=== PATIENT | male | born 1940 | race Caucasian/White ===

== ENCOUNTER 2017-03-25 20:13 | Inpatient (IN) | payer MEDICARE ==
[2017-03-25] MEDS ORDERED: Magnesium Hydroxide (MOM) 30 mL UDC PO PRN (20:41)
[2017-03-25] MEDS ORDERED: Maalox 30 mL Cup PO PRN (20:41)
[2017-03-25 20:43] VITALS: BP 153/73
[2017-03-25] MEDS ORDERED: Albuterol/Ipratropium Neb 3 ML AERS HHN PRN (21:29)
--- NOTE | 2017-03-25 23:48 | History & Physical ---
ADMIT DATE: 03/25/2017 HISTORY OF PRESENT ILLNESS: The patient is a 77-year-old male with long history of dementia, depression, gastroesophageal reflux, degenerative joint disease, transferred from [facility] to [facility] for ____ treatment. Apparently, the patient has been very depressed, agitated, and confused. No chest pain, no shortness of breath, nausea, vomiting, fever or chills. PAST MEDICAL HISTORY: Gastroesophageal reflux, degenerative joint disease, obesity, depression, and dementia. PAST SURGICAL HISTORY: No recent surgery. ALLERGIES: None. MEDICATIONS: Follow admission reconciliation. SOCIAL HISTORY: No smoking, no alcohol, and no drug. FAMILY HISTORY: Noncontributory. REVIEW OF SYSTEMS: IMMUNO SYSTEM: No history of chronic renal disorder. CARDIOVASCULAR SYSTEM: No coronary artery disease. ENDOCRINE SYSTEM: No diabetes or thyroid problem. GASTROINTESTINAL SYSTEM: Has gastroesophageal reflux. NEUROLOGICAL SYSTEM: History of depression, psychosis, and dementia. MUSCULOSKELETAL SYSTEM: Has degenerative joint disease and barely walking. HEMATOLOGIC SYSTEM: No bleeding tendency. RESPIRATORY SYSTEM: No asthma. GENITOURINARY SYSTEM: No dysuria or hematuria. PHYSICAL EXAMINATION: GENERAL: She is awake, not coherent. VITAL SIGNS: Temperature is 98.3, heart rate 68, and blood pressure ____. HEENT: Normocephalic. Pupils are reactive to light and accommodation. Sclerae clear. NECK: Supple. Negative for lymphadenopathy, JVD, or bruit. CHEST: Bilaterally normal. No rales, rhonchi or wheezing. HEART: S1 and S2 normal. No murmur or gallop. ABDOMEN: Soft, bowel sounds positive. EXTREMITIES: No edema. ____ SKIN: Intact. GENITOURINARY AND RECTAL: Done by the primary physician. NEUROLOGIC: He is awake, alert, not fully oriented. No focal motor or sensory deficit. Cranial nerves 2-12 is intact. ASSESSMENT: 1. Hypertension. 2. Gastroesophageal reflux. 3. Degenerative joint disease. 4. Dementia. PLAN: The patient admitted to the hospital under Dr. Plummer's service. MEDICAL PROBLEMS TO BE ADDRESSED DURING HOSPITALIZATION: Dementia and depression. MEDICAL PROBLEMS TO BE ADDRESSED AT DISCHARGE: Hypertension, degenerative joint disease. The patient is medically stable for activity. Thank you, Dr. Plummer, for asking me to see your patient. JOB# [id number]
[2017-03-26 07:26] LABS: HEMATOCRIT 46.3 % (41.0-60); HEMOGLOBIN 15.5 gm/dL (12-16); MEAN CELL VOLUME 87.4 fl (80-99); MEAN CORPUSCULAR HEMOGLOBIN 29.2 pg (27.0-31.0); MEAN CORPUSCULAR HGB CONC 33.4 pg (28.0-36.0); MEAN PLATELET VOLUME 8.5 fl; NEUTROPHILE ABSOLUTE 13.9 Th/cmm (1.8-8.0); PLATELET COUNT 214 Th/cmm (150-400); RED CELL DISTRIBUTION WIDTH 13.5 % (11.5-20.0)
[2017-03-26 07:37] LABS: ALB/GLOB RATIO 1.5 (1.0-1.8); ALKALINE PHOSPHATASE 94 U/L (34-104); BILIRUBIN,TOTAL 0.5 mg/dL (0.3-1.0); BUN - UREA NITROGEN 18 mg/dL (7-25); BUN/CREATININE RATIO 25.7; CALCIUM SERUM 9.8 mg/dL (8.6-10.3); CARBON DIOXIDE 30.8 mEq/L (21.0-31.0); CHLORIDE 97 mEq/L (98-107); CREATININE - SERUM 0.7 mg/dL (0.7-1.3); GLUCOSE 92 mg/dL (70-105); POTASSIUM SERUM 3.8 mEq/L (3.5-5.1); SGOT 14 U/L (13-39); SGPT/ALT 11 U/L (7-52); SODIUM SERUM 131 mEq/L (136-145)
[2017-03-26 07:44] LABS: WHITE BLOOD COUNT 20.4 Th/cmm (4.8-10.8)
[2017-03-26 08:06] LABS: BAND NEUTROPHILE 2 % (0-10); EOSINOPHIL 3 % (0-5); NEUTROPHILS 67 % (40-80); TOTAL CELLS COUNTED 100
[2017-03-26] MEDS: Aspirin 81mg Chewable Tab PO SCH (10:00)
[2017-03-26] MEDS: Pantoprazole 40 mg EC Tab PO SCH (10:00)
[2017-03-26] MEDS ORDERED: Haloperidol Lactate 5 mg/mL 1mL Vial ONE (13:19)
[2017-03-26] MEDS ORDERED: Haloperidol Lactate 5 mg/mL 1mL Vial IM ONE (13:20)
--- NOTE | 2017-03-26 22:02 | Internal Medicine Prog Note ---
Internal Medicine Subjective - Subjective Service Date: 03/26/17 Patient seen and examined:: without staff (HE IS QUITE,NT AGITATED.HE IOS STILL CONFUSED.) Patient is:: awake, non-verbal, in bed, confused Per staff patient has:: no adverse event Internal Medicine Objective - Results Result Diagrams: 03/26/17 07:05 03/26/17 07:05 Recent Labs: Laboratory Last Values WBC 20.4 Th/cmm (4.8-10.8) H* 03/26/17 07:05 RBC 5.30 Mil/cmm (3.80-5.80) 03/26/17 07:05 Hgb 15.5 gm/dL (12-16) 03/26/17 07:05 Hct 46.3 % (41.0-60) 03/26/17 07:05 MCV 87.4 fl (80-99) 03/26/17 07:05 MCH 29.2 pg (27.0-31.0) 03/26/17 07:05 MCHC Differential 33.4 pg (28.0-36.0) 03/26/17 07:05 RDW 13.5 % (11.5-20.0) 03/26/17 07:05 Plt Count 214 Th/cmm (150-400) 03/26/17 07:05 MPV 8.5 fl 03/26/17 07:05 Band Neutrophils % 2 % (0-10) 03/26/17 07:05 Neutrophils (Manual) 67 % (40-80) 03/26/17 07:05 Lymphocytes 23 % (20-50) 03/26/17 07:05 Monocytes 5 % (2-10) 03/26/17 07:05 Eosinophils 3 % (0-5) 03/26/17 07:05 Sodium 131 mEq/L (136-145) L 03/26/17 07:05 Potassium 3.8 mEq/L (3.5-5.1) 03/26/17 07:05 Chloride 97 mEq/L (98-107) L 03/26/17 07:05 Carbon Dioxide 30.8 mEq/L (21.0-31.0) 03/26/17 07:05 Anion Gap 7.0 (7.0-16.0) 03/26/17 07:05 BUN 18 mg/dL (7-25) 03/26/17 07:05 Creatinine 0.7 mg/dL (0.7-1.3) 03/26/17 07:05 Est GFR ( Amer) TNP 03/26/17 07:05 Est GFR (Non-Af Amer) TNP 03/26/17 07:05 BUN/Creatinine Ratio 25.7 03/26/17 07:05 Glucose 92 mg/dL (70-105) 03/26/17 07:05 POC Glucose 170 MG/DL (70 - 105) H 03/25/17 21:03 Calcium 9.8 mg/dL (8.6-10.3) 03/26/17 07:05 Total Bilirubin 0.5 mg/dL (0.3-1.0) 03/26/17 07:05 AST 14 U/L (13-39) 03/26/17 07:05 ALT 11 U/L (7-52) 03/26/17 07:05 Alkaline Phosphatase 94 U/L (34-104) 03/26/17 07:05 Total Protein 7.0 gm/dL (6.0-8.3) 03/26/17 07:05 Albumin 4.2 gm/dL (4.2-5.5) 03/26/17 07:05 Globulin 2.8 gm/dL 03/26/17 07:05 Albumin/Globulin Ratio 1.5 (1.0-1.8) 03/26/17 07:05 - Physical Exam Vitals and I&O: Vital Signs Temp 97.8 F 03/26/17 21:43 Pulse 45 03/26/17 21:43 Resp 19 03/26/17 21:43 BP 102/63 03/26/17 21:43 Pulse Ox 97 03/26/17 21:43 Intake & Output 03/26/17 03/26/17 03/27/17 06:59 18:59 06:59 Intake Total 120 600 Balance 120 600 Weight (lbs) 92.986 kg Intake: Oral 120 600 Other: # Voids 3 2 Active Medications: Current Medications Acetaminophen (Tylenol) 650 mg PO Q6H PRN PRN Reason: Mild Pain/Headache/T above 101 Stop: 05/24/17 20:40 Al Hydrox/Mg Hydrox/Simethicone (Maalox) 30 ml PO Q6H PRN PRN Reason: Dyspepsia Stop: 05/24/17 20:40 Albuterol/Ipratropium (Duoneb Neb) 3 ml HHN Q4H PRN PRN Reason: Wheezing Stop: 05/24/17 21:28 Alprazolam (Xanax) 0.5 mg PO Q8HR [facility] PRN Reason: Protocol Stop: 05/25/17 04:59 Last Admin: 03/26/17 20:52 Dose: Not Given Aspirin (Aspirin Chewable) 81 mg PO DAILY [facility] Stop: 05/25/17 08:59 Last Admin: 03/26/17 10:00 Dose: 81 mg Benztropine Mesylate (Cogentin) 0.5 mg PO DAILY [facility] Stop: 05/25/17 08:59 Last Admin: 03/26/17 10:00 Dose: 0.5 mg Citalopram Hydrobromide (Celexa) 20 mg PO DAILY [facility] PRN Reason: Protocol Stop: 05/25/17 08:59 Last Admin: 03/26/17 10:00 Dose: 20 mg Docusate Sodium (Colace) 200 mg PO DAILY [facility] Stop: 05/25/17 08:59 Last Admin: 03/26/17 10:00 Dose: 200 mg Lorazepam (Ativan) 1 mg PO Q6H PRN; Protocol PRN Reason: Anxiety/Agitation Stop: 05/24/17 20:40 Last Admin: 03/26/17 00:07 Dose: 1 mg Magnesium Hydroxide (Milk Of Magnesia) 30 ml PO HS PRN PRN Reason: Constipation Stop: 05/24/17 20:40 Metoclopramide HCl (Reglan) 5 mg PO Q12HR [facility] Stop: 05/24/17 20:59 Last Admin: 03/26/17 20:45 Dose: Not Given Pantoprazole Sodium (Protonix) 40 mg PO QAM [facility] Stop: 05/25/17 08:59 Last Admin: 03/26/17 10:00 Dose: 40 mg Quetiapine Fumarate (Seroquel) 100 mg PO Q8HR [facility] PRN Reason: Protocol Stop: 05/24/17 20:59 Last Admin: 03/26/17 20:45 Dose: Not Given Zolpidem Tartrate (Ambien) 5 mg PO HS PRN PRN Reason: Insomnia Stop: 05/24/17 20:40 Last Admin: 03/25/17 21:54 Dose: 5 mg General: demented, obese HEENT: NC/AT, PERRLA, EOMI, anicteric sclerae, throat clear Neck: Supple, No JVD, No thyromegaly, +2 carotid pulse wo bruit, No LAD Lungs: CTAB Cardiovascular: RRR, Normal S1, Normal S2, without murmur Abdomen: soft, non-tender, non-distended Extremities: clear Neurological: unable to follow command Internal Medicine Assmt/Plan - Assessment Assessment: 1.HTN. 2.GERD. 3.DEMENTIA. 4.LEUKOCYTOSIS. 5.HYPONATREMIA. - Plan Plan: CONTINUE ON CURRENT MEDICATION AND DIET.CBC IN AM.
[2017-03-27 07:01] LABS: % EOSINOPHILS 7.4 % (0.0-5.0); % LYMPHOCYTES 39.1 % (20.0-50.0); % MONOCYTES 5.4 % (2.0-10.0); % NEUTROPHILS 48.1 % (40.0-80.0); HEMATOCRIT 44.4 % (41.0-60); HEMOGLOBIN 14.6 gm/dL (12-16); MEAN CELL VOLUME 86.8 fl (80-99); MEAN CORPUSCULAR HEMOGLOBIN 28.5 pg (27.0-31.0); MEAN CORPUSCULAR HGB CONC 32.9 pg (28.0-36.0); MEAN PLATELET VOLUME 8.3 fl; PLATELET COUNT 221 Th/cmm (150-400); RED BLOOD COUNT 5.11 Mil/cmm (3.80-5.80); RED CELL DISTRIBUTION WIDTH 14.2 % (11.5-20.0)
[2017-03-27 07:05] LABS: WHITE BLOOD COUNT 14.6 Th/cmm (4.8-10.8)
[2017-03-27] MEDS: Pantoprazole 40 mg EC Tab PO SCH (09:47)
[2017-03-27] MEDS: Aspirin 81mg Chewable Tab PO SCH (09:47)
--- NOTE | 2017-03-27 15:14 | Internal Medicine Prog Note ---
Internal Medicine Subjective - Subjective Service Date: 03/27/17 Patient seen and examined:: without staff Patient is:: awake, non-verbal, in bed, confused Per staff patient has:: no adverse event Internal Medicine Objective - Results Result Diagrams: 03/27/17 06:26 03/26/17 07:05 Recent Labs: Laboratory Last Values WBC 14.6 Th/cmm (4.8-10.8) H D 03/27/17 06:26 RBC 5.11 Mil/cmm (3.80-5.80) 03/27/17 06:26 Hgb 14.6 gm/dL (12-16) 03/27/17 06:26 Hct 44.4 % (41.0-60) 03/27/17 06:26 MCV 86.8 fl (80-99) 03/27/17 06:26 MCH 28.5 pg (27.0-31.0) 03/27/17 06:26 MCHC Differential 32.9 pg (28.0-36.0) 03/27/17 06:26 RDW 14.2 % (11.5-20.0) 03/27/17 06:26 Plt Count 221 Th/cmm (150-400) 03/27/17 06:26 MPV 8.3 fl 03/27/17 06:26 Neutrophils % 48.1 % (40.0-80.0) 03/27/17 06:26 Band Neutrophils % 2 % (0-10) 03/26/17 07:05 Lymphocytes % 39.1 % (20.0-50.0) 03/27/17 06:26 Monocytes % 5.4 % (2.0-10.0) 03/27/17 06:26 Eosinophils % 7.4 % (0.0-5.0) H 03/27/17 06:26 Basophils % 0.0 % (0.0-2.0) 03/27/17 06:26 Neutrophils (Manual) 67 % (40-80) 03/26/17 07:05 Lymphocytes 23 % (20-50) 03/26/17 07:05 Monocytes 5 % (2-10) 03/26/17 07:05 Eosinophils 3 % (0-5) 03/26/17 07:05 Sodium 131 mEq/L (136-145) L 03/26/17 07:05 Potassium 3.8 mEq/L (3.5-5.1) 03/26/17 07:05 Chloride 97 mEq/L (98-107) L 03/26/17 07:05 Carbon Dioxide 30.8 mEq/L (21.0-31.0) 03/26/17 07:05 Anion Gap 7.0 (7.0-16.0) 03/26/17 07:05 BUN 18 mg/dL (7-25) 03/26/17 07:05 Creatinine 0.7 mg/dL (0.7-1.3) 03/26/17 07:05 Est GFR ( Amer) TNP 03/26/17 07:05 Est GFR (Non-Af Amer) TNP 03/26/17 07:05 BUN/Creatinine Ratio 25.7 03/26/17 07:05 Glucose 92 mg/dL (70-105) 03/26/17 07:05 POC Glucose 170 MG/DL (70 - 105) H 03/25/17 21:03 Calcium 9.8 mg/dL (8.6-10.3) 03/26/17 07:05 Total Bilirubin 0.5 mg/dL (0.3-1.0) 03/26/17 07:05 AST 14 U/L (13-39) 03/26/17 07:05 ALT 11 U/L (7-52) 03/26/17 07:05 Alkaline Phosphatase 94 U/L (34-104) 03/26/17 07:05 Total Protein 7.0 gm/dL (6.0-8.3) 03/26/17 07:05 Albumin 4.2 gm/dL (4.2-5.5) 03/26/17 07:05 Globulin 2.8 gm/dL 03/26/17 07:05 Albumin/Globulin Ratio 1.5 (1.0-1.8) 03/26/17 07:05 - Physical Exam Vitals and I&O: Vital Signs Temp 97.4 F 03/27/17 15:05 Pulse 82 03/27/17 15:05 Resp 19 03/27/17 15:05 BP 117/59 03/27/17 15:05 Pulse Ox 97 03/27/17 15:05 Intake & Output 03/26/17 03/27/17 03/27/17 18:59 06:59 18:59 Intake Total 600 120 Balance 600 120 Intake: Oral 600 120 Other: # Voids 2 3 Active Medications: Current Medications Acetaminophen (Tylenol) 650 mg PO Q6H PRN PRN Reason: Mild Pain/Headache/T above 101 Stop: 05/24/17 20:40 Al Hydrox/Mg Hydrox/Simethicone (Maalox) 30 ml PO Q6H PRN PRN Reason: Dyspepsia Stop: 05/24/17 20:40 Albuterol/Ipratropium (Duoneb Neb) 3 ml HHN Q4H PRN PRN Reason: Wheezing Stop: 05/24/17 21:28 Alprazolam (Xanax) 0.5 mg PO Q8HR [facility] PRN Reason: Protocol Stop: 05/25/17 04:59 Last Admin: 03/27/17 13:34 Dose: 0.5 mg Aspirin (Aspirin Chewable) 81 mg PO DAILY [facility] Stop: 05/25/17 08:59 Last Admin: 03/27/17 09:47 Dose: Not Given Benztropine Mesylate (Cogentin) 0.5 mg PO DAILY [facility] Stop: 05/25/17 08:59 Last Admin: 03/27/17 09:47 Dose: Not Given Citalopram Hydrobromide (Celexa) 20 mg PO DAILY [facility] PRN Reason: Protocol Stop: 05/25/17 08:59 Last Admin: 03/27/17 09:47 Dose: Not Given Docusate Sodium (Colace) 200 mg PO DAILY [facility] Stop: 05/25/17 08:59 Last Admin: 03/27/17 09:47 Dose: Not Given Lorazepam (Ativan) 1 mg PO Q6H PRN; Protocol PRN Reason: Anxiety/Agitation Stop: 05/24/17 20:40 Last Admin: 03/26/17 00:07 Dose: 1 mg Magnesium Hydroxide (Milk Of Magnesia) 30 ml PO HS PRN PRN Reason: Constipation Stop: 05/24/17 20:40 Metoclopramide HCl (Reglan) 5 mg PO Q12HR [facility] Stop: 05/24/17 20:59 Last Admin: 03/27/17 09:47 Dose: Not Given Pantoprazole Sodium (Protonix) 40 mg PO QAM [facility] Stop: 05/25/17 08:59 Last Admin: 03/27/17 09:47 Dose: Not Given Quetiapine Fumarate (Seroquel) 100 mg PO Q8HR [facility] PRN Reason: Protocol Stop: 05/24/17 20:59 Last Admin: 03/27/17 13:34 Dose: 100 mg Zolpidem Tartrate (Ambien) 5 mg PO HS PRN PRN Reason: Insomnia Stop: 05/24/17 20:40 Last Admin: 03/25/17 21:54 Dose: 5 mg General: demented, obese HEENT: NC/AT, PERRLA, EOMI, anicteric sclerae, throat clear Neck: Supple, No JVD, No thyromegaly, +2 carotid pulse wo bruit, No LAD Lungs: CTAB Cardiovascular: RRR, Normal S1, Normal S2, without murmur Abdomen: soft, non-tender, non-distended Extremities: clear Neurological: unable to follow command Internal Medicine Assmt/Plan - Assessment Assessment: 1.HTN. 2.GERD. 3.DEMENTIA. 4.LEUKOCYTOSIS. 5.HYPONATREMIA. - Plan Plan: CONTINUE ON CURRENT MEDICATION AND DIET.
[2017-03-28] MEDS: Pantoprazole 40 mg EC Tab PO SCH (09:01)
[2017-03-28] MEDS: Aspirin 81mg Chewable Tab PO SCH (09:01)
--- NOTE | 2017-03-28 16:51 | General Progress Note ---
Subjective - Review of Systems Service Date: 03/28/17 Subjective: RESTING COMFORTABLY NO DISTRESS Objective - Results Result Diagrams: 03/27/17 06:26 03/26/17 07:05 Recent Labs: Laboratory Last Values WBC 14.6 Th/cmm (4.8-10.8) H D 03/27/17 06:26 RBC 5.11 Mil/cmm (3.80-5.80) 03/27/17 06:26 Hgb 14.6 gm/dL (12-16) 03/27/17 06:26 Hct 44.4 % (41.0-60) 03/27/17 06:26 MCV 86.8 fl (80-99) 03/27/17 06:26 MCH 28.5 pg (27.0-31.0) 03/27/17 06:26 MCHC Differential 32.9 pg (28.0-36.0) 03/27/17 06:26 RDW 14.2 % (11.5-20.0) 03/27/17 06:26 Plt Count 221 Th/cmm (150-400) 03/27/17 06:26 MPV 8.3 fl 03/27/17 06:26 Neutrophils % 48.1 % (40.0-80.0) 03/27/17 06:26 Band Neutrophils % 2 % (0-10) 03/26/17 07:05 Lymphocytes % 39.1 % (20.0-50.0) 03/27/17 06:26 Monocytes % 5.4 % (2.0-10.0) 03/27/17 06:26 Eosinophils % 7.4 % (0.0-5.0) H 03/27/17 06:26 Basophils % 0.0 % (0.0-2.0) 03/27/17 06:26 Neutrophils (Manual) 67 % (40-80) 03/26/17 07:05 Lymphocytes 23 % (20-50) 03/26/17 07:05 Monocytes 5 % (2-10) 03/26/17 07:05 Eosinophils 3 % (0-5) 03/26/17 07:05 Sodium 131 mEq/L (136-145) L 03/26/17 07:05 Potassium 3.8 mEq/L (3.5-5.1) 03/26/17 07:05 Chloride 97 mEq/L (98-107) L 03/26/17 07:05 Carbon Dioxide 30.8 mEq/L (21.0-31.0) 03/26/17 07:05 Anion Gap 7.0 (7.0-16.0) 03/26/17 07:05 BUN 18 mg/dL (7-25) 03/26/17 07:05 Creatinine 0.7 mg/dL (0.7-1.3) 03/26/17 07:05 Est GFR ( Amer) TNP 03/26/17 07:05 Est GFR (Non-Af Amer) TNP 03/26/17 07:05 BUN/Creatinine Ratio 25.7 03/26/17 07:05 Glucose 92 mg/dL (70-105) 03/26/17 07:05 POC Glucose 170 MG/DL (70 - 105) H 03/25/17 21:03 Calcium 9.8 mg/dL (8.6-10.3) 03/26/17 07:05 Total Bilirubin 0.5 mg/dL (0.3-1.0) 03/26/17 07:05 AST 14 U/L (13-39) 03/26/17 07:05 ALT 11 U/L (7-52) 03/26/17 07:05 Alkaline Phosphatase 94 U/L (34-104) 03/26/17 07:05 Total Protein 7.0 gm/dL (6.0-8.3) 03/26/17 07:05 Albumin 4.2 gm/dL (4.2-5.5) 03/26/17 07:05 Globulin 2.8 gm/dL 03/26/17 07:05 Albumin/Globulin Ratio 1.5 (1.0-1.8) 03/26/17 07:05 - Physical Exam Vitals and I&O: Vital Signs Temp 98.2 F 03/28/17 15:36 Pulse 90 03/28/17 15:36 Resp 19 03/28/17 15:36 BP 107/68 03/28/17 15:36 Pulse Ox 98 03/28/17 15:36 Intake & Output 03/27/17 03/28/17 03/28/17 18:59 06:59 18:59 Intake Total 700 360 Balance 700 360 Intake: Oral 700 360 Other: # Voids 2 3 # Bowel Movements 1 Active Medications: Current Medications Acetaminophen (Tylenol) 650 mg PO Q6H PRN PRN Reason: Mild Pain/Headache/T above 101 Stop: 05/24/17 20:40 Al Hydrox/Mg Hydrox/Simethicone (Maalox) 30 ml PO Q6H PRN PRN Reason: Dyspepsia Stop: 05/24/17 20:40 Albuterol/Ipratropium (Duoneb Neb) 3 ml HHN Q4H PRN PRN Reason: Wheezing Stop: 05/24/17 21:28 Alprazolam (Xanax) 0.5 mg PO Q8HR [facility] PRN Reason: Protocol Stop: 05/25/17 04:59 Last Admin: 03/28/17 13:02 Dose: 0.5 mg Aspirin (Aspirin Chewable) 81 mg PO DAILY [facility] Stop: 05/25/17 08:59 Last Admin: 03/28/17 09:01 Dose: 81 mg Benztropine Mesylate (Cogentin) 0.5 mg PO DAILY [facility] Stop: 05/25/17 08:59 Last Admin: 03/28/17 09:02 Dose: 0.5 mg Citalopram Hydrobromide (Celexa) 20 mg PO DAILY [facility] PRN Reason: Protocol Stop: 05/25/17 08:59 Last Admin: 03/28/17 09:02 Dose: 20 mg Docusate Sodium (Colace) 200 mg PO DAILY [facility] Stop: 05/25/17 08:59 Last Admin: 03/28/17 09:02 Dose: 200 mg Lorazepam (Ativan) 1 mg PO Q6H PRN; Protocol PRN Reason: Anxiety/Agitation Stop: 05/24/17 20:40 Last Admin: 03/26/17 00:07 Dose: 1 mg Magnesium Hydroxide (Milk Of Magnesia) 30 ml PO HS PRN PRN Reason: Constipation Stop: 05/24/17 20:40 Metoclopramide HCl (Reglan) 5 mg PO Q12HR [facility] Stop: 05/24/17 20:59 Last Admin: 03/28/17 09:02 Dose: 5 mg Mupirocin (Bactroban Oint) 1 appl NS BID [facility] Stop: 04/02/17 09:01 Pantoprazole Sodium (Protonix) 40 mg PO QAM [facility] Stop: 05/25/17 08:59 Last Admin: 03/28/17 09:01 Dose: 40 mg Quetiapine Fumarate (Seroquel) 100 mg PO Q8HR [facility] PRN Reason: Protocol Stop: 05/24/17 20:59 Last Admin: 03/28/17 13:02 Dose: 100 mg Zolpidem Tartrate (Ambien) 5 mg PO HS PRN PRN Reason: Insomnia Stop: 05/24/17 20:40 Last Admin: 03/25/17 21:54 Dose: 5 mg General: Alert HEENT: Atraumatic, PERRLA, EOMI Neck: Supple, JVD Cardiovascular: Regular rate, Normal S1, Normal S2 Lungs: Clear to auscultation Abdomen: Bowel sounds, Soft Extremities: Clubbing Psych/Mental Status: Mood NL Assessment/Plan - Assessment Assessment: 1.HTN. 2.GERD. 3.DEMENTIA. 4.LEUKOCYTOSIS. 5.HYPONATREMIA. - Plan Plan: CONT CURRENT TREATMENT
--- NOTE | 2017-03-28 21:11 | Psychosocial Evaluation ---
DATE OF SERVICE: AGE: 77. SEX: Male. PHYSICIAN: Dr. Plummer. CHIEF COMPLAINT: Hitting staff and residents. HISTORY OF PRESENT ILLNESS: The patient is a 77-year-old male, who was admitted to the hospital because the patient has been severely aggressive and severely agitated. The patient has been hitting staff and residents in the facility where he lives. The patient also has been calling 911 because "they are calling my name on TV." The patient also has been trying to wheel himself off from the ER to exit because he thought that his parents are out of the Emergency Room waiting for him. He also has been having difficulty following any instructions and has been more aggressive lately. PAST PSYCHIATRIC HISTORY: The patient has history of what seems to be psychosis and dementia. PAST MEDICAL HISTORY: The patient has history of hypertension. CHEMICAL DEPENDENCY HISTORY: The patient denies. SOCIAL HISTORY: The patient lives in a nursing facility. No known alcohol or drug use. ALLERGIES: No known allergies. MENTAL STATUS EXAMINATION: The patient appears his stated age. Disheveled. Rambling and disorganized thoughts. The patient is suspicious and delusional and is agitated. The patient did not answer questions regarding suicide or homicide. The patient is alert, but unable to assess his orientation with her memory or concentration or the rest of the mental status exam because of his paranoia and disorganized thoughts. ASSESSMENT: PRIMARY DIAGNOSIS: Unspecified psychosis. SECONDARY DIAGNOSIS: Dementia, moderate, with psychotic features. TREATMENT PLAN: We will monitor the patient's behavior and condition closely. We will start individual, as well as milieu psychotherapy. We will monitor psychotropic medications. ESTIMATED LENGTH OF STAY: 7-10 days. THE PATIENT'S STRENGTHS AND WEAKNESSES: Strengths: The patient seems to be in relatively fair health. Weaknesses are his poor impulse control and his psychosis. AFTER DISCHARGE PLAN: Outpatient treatment and followup will continue as an outpatient in the facility. The patient might need placement the facility will not accept him back. JOB# [id number]
--- NOTE | 2017-03-28 21:39 | Progress Notes ---
DATE: 03/28/2017 SUBJECTIVE: The patient is still withdrawn and is still agitated. The patient also continued to be aggressive and still has episodes of trying to hit staff. He also is still easily agitated and easily irritable with difficulty following directions. He also still seemed to be suspicious and is still paranoid. The patient also is still reporting auditory hallucinations and is still saying that the TV is calling his name and talking about him. Also, still confused and needs redirections. ASSESSMENT: The patient is still psychotic. TREATMENT PLAN: We will continue monitoring his behavior and his condition closely. The patient also continued to take Celexa and we will continue the dose, and also considering use of antipsychotic medications and/or mood stabilizer. JOB# [id number]
--- NOTE | 2017-03-28 21:48 | Progress Notes ---
DATE: 03/27/2017 SUBJECTIVE: Chart reviewed and the patient interviewed. Also discussed the patient's condition with the staff and reviewed records and labs. The patient continues to be extremely agitated and in irritable mood. The patient also is still aggressive and he has episodes of trying to hit others. The patient also is restless and he still needs redirections. The patient also is still reporting auditory hallucinations and he said that he still hears his name on TV. Also, personal hygiene is still poor and the patient is disheveled. ASSESSMENT: The patient still has poor impulse control and aggressive. TREATMENT PLAN: We will continue monitoring his behavior and his condition closely. Also continue adjusting psychotropic medications. Also, working with correctional case manager in regard to discharge plans and possible placement issue. JOB# [id number]
--- NOTE | 2017-03-29 07:54 | General Progress Note ---
Subjective - Review of Systems Service Date: 03/29/17 Subjective: RESTING COMFORTABLY NO DISTRESS Objective - Results Result Diagrams: 03/27/17 06:26 03/26/17 07:05 Recent Labs: Laboratory Last Values WBC 14.6 Th/cmm (4.8-10.8) H D 03/27/17 06:26 RBC 5.11 Mil/cmm (3.80-5.80) 03/27/17 06:26 Hgb 14.6 gm/dL (12-16) 03/27/17 06:26 Hct 44.4 % (41.0-60) 03/27/17 06:26 MCV 86.8 fl (80-99) 03/27/17 06:26 MCH 28.5 pg (27.0-31.0) 03/27/17 06:26 MCHC Differential 32.9 pg (28.0-36.0) 03/27/17 06:26 RDW 14.2 % (11.5-20.0) 03/27/17 06:26 Plt Count 221 Th/cmm (150-400) 03/27/17 06:26 MPV 8.3 fl 03/27/17 06:26 Neutrophils % 48.1 % (40.0-80.0) 03/27/17 06:26 Band Neutrophils % 2 % (0-10) 03/26/17 07:05 Lymphocytes % 39.1 % (20.0-50.0) 03/27/17 06:26 Monocytes % 5.4 % (2.0-10.0) 03/27/17 06:26 Eosinophils % 7.4 % (0.0-5.0) H 03/27/17 06:26 Basophils % 0.0 % (0.0-2.0) 03/27/17 06:26 Neutrophils (Manual) 67 % (40-80) 03/26/17 07:05 Lymphocytes 23 % (20-50) 03/26/17 07:05 Monocytes 5 % (2-10) 03/26/17 07:05 Eosinophils 3 % (0-5) 03/26/17 07:05 Sodium 131 mEq/L (136-145) L 03/26/17 07:05 Potassium 3.8 mEq/L (3.5-5.1) 03/26/17 07:05 Chloride 97 mEq/L (98-107) L 03/26/17 07:05 Carbon Dioxide 30.8 mEq/L (21.0-31.0) 03/26/17 07:05 Anion Gap 7.0 (7.0-16.0) 03/26/17 07:05 BUN 18 mg/dL (7-25) 03/26/17 07:05 Creatinine 0.7 mg/dL (0.7-1.3) 03/26/17 07:05 Est GFR ( Amer) TNP 03/26/17 07:05 Est GFR (Non-Af Amer) TNP 03/26/17 07:05 BUN/Creatinine Ratio 25.7 03/26/17 07:05 Glucose 92 mg/dL (70-105) 03/26/17 07:05 POC Glucose 170 MG/DL (70 - 105) H 03/25/17 21:03 Calcium 9.8 mg/dL (8.6-10.3) 03/26/17 07:05 Total Bilirubin 0.5 mg/dL (0.3-1.0) 03/26/17 07:05 AST 14 U/L (13-39) 03/26/17 07:05 ALT 11 U/L (7-52) 03/26/17 07:05 Alkaline Phosphatase 94 U/L (34-104) 03/26/17 07:05 Total Protein 7.0 gm/dL (6.0-8.3) 03/26/17 07:05 Albumin 4.2 gm/dL (4.2-5.5) 03/26/17 07:05 Globulin 2.8 gm/dL 03/26/17 07:05 Albumin/Globulin Ratio 1.5 (1.0-1.8) 03/26/17 07:05 - Physical Exam Vitals and I&O: Vital Signs Temp 97.8 F 03/29/17 06:42 Pulse 64 03/29/17 07:42 Resp 18 03/29/17 07:42 BP 96/57 03/29/17 06:42 Pulse Ox 94 03/29/17 07:42 Intake & Output 03/28/17 03/29/17 03/29/17 18:59 06:59 18:59 Intake Total 1000 480 Balance 1000 480 Intake: Oral 1000 480 Other: # Voids 4 1 # Bowel Movements 1 Active Medications: Current Medications Acetaminophen (Tylenol) 650 mg PO Q6H PRN PRN Reason: Mild Pain/Headache/T above 101 Stop: 05/24/17 20:40 Al Hydrox/Mg Hydrox/Simethicone (Maalox) 30 ml PO Q6H PRN PRN Reason: Dyspepsia Stop: 05/24/17 20:40 Albuterol/Ipratropium (Duoneb Neb) 3 ml HHN Q4H PRN PRN Reason: Wheezing Stop: 05/24/17 21:28 Alprazolam (Xanax) 0.5 mg PO Q8HR [facility] PRN Reason: Protocol Stop: 05/25/17 04:59 Last Admin: 03/29/17 05:42 Dose: 0.5 mg Aspirin (Aspirin Chewable) 81 mg PO DAILY [facility] Stop: 05/25/17 08:59 Last Admin: 03/28/17 09:01 Dose: 81 mg Benztropine Mesylate (Cogentin) 0.5 mg PO DAILY [facility] Stop: 05/25/17 08:59 Last Admin: 03/28/17 09:02 Dose: 0.5 mg Citalopram Hydrobromide (Celexa) 20 mg PO DAILY [facility] PRN Reason: Protocol Stop: 05/25/17 08:59 Last Admin: 03/28/17 09:02 Dose: 20 mg Docusate Sodium (Colace) 200 mg PO DAILY [facility] Stop: 05/25/17 08:59 Last Admin: 03/28/17 09:02 Dose: 200 mg Lorazepam (Ativan) 1 mg PO Q6H PRN; Protocol PRN Reason: Anxiety/Agitation Stop: 05/24/17 20:40 Last Admin: 03/26/17 00:07 Dose: 1 mg Magnesium Hydroxide (Milk Of Magnesia) 30 ml PO HS PRN PRN Reason: Constipation Stop: 05/24/17 20:40 Metoclopramide HCl (Reglan) 5 mg PO Q12HR [facility] Stop: 05/24/17 20:59 Last Admin: 03/28/17 20:30 Dose: 5 mg Mupirocin (Bactroban Oint) 1 appl NS BID [facility] Stop: 04/02/17 09:01 Last Admin: 03/28/17 17:08 Dose: 1 appl Pantoprazole Sodium (Protonix) 40 mg PO QAM [facility] Stop: 05/25/17 08:59 Last Admin: 03/28/17 09:01 Dose: 40 mg Quetiapine Fumarate (Seroquel) 100 mg PO Q8HR [facility] PRN Reason: Protocol Stop: 05/24/17 20:59 Last Admin: 03/29/17 05:42 Dose: 100 mg Zolpidem Tartrate (Ambien) 5 mg PO HS PRN PRN Reason: Insomnia Stop: 05/24/17 20:40 Last Admin: 03/25/17 21:54 Dose: 5 mg General: Alert HEENT: Atraumatic, PERRLA, EOMI Neck: Supple, JVD Cardiovascular: Regular rate, Normal S1, Normal S2 Lungs: Clear to auscultation Abdomen: Bowel sounds, Soft Extremities: Clubbing Psych/Mental Status: Mood NL Assessment/Plan - Assessment Assessment: 1.HTN. 2.GERD. 3.DEMENTIA. 4.LEUKOCYTOSIS. 5.HYPONATREMIA. - Plan Plan: CONT CURRENT TREATMENT
[2017-03-29] MEDS: Pantoprazole 40 mg EC Tab PO SCH (08:33)
[2017-03-29] MEDS: Aspirin 81mg Chewable Tab PO SCH (08:33)
--- NOTE | 2017-03-29 20:21 | Progress Notes ---
DATE: 03/29/2017 SUBJECTIVE: Chart reviewed and the patient interviewed. Also discussed the patient's condition with the staff and reviewed records and labs. The patient continued to be extremely agitated and in irritable mood. The patient also is still aggressive and still having episodes of hitting staff. The patient also is still having difficulty following directions. Also, tries to call 911 and has to be monitored closely. The patient during interview said that the TV is still calling his name. He also is still having difficulty with redirections. ASSESSMENT: The patient is still psychotic and agitated. TREATMENT PLAN: We will continue to monitor his behavior and his condition closely. Also, continue to work on his psychosis and poor impulse control. JOB# [id number]
[2017-03-30 07:49] LABS: % BASOPHILS 0.3 % (0.0-2.0); % EOSINOPHILS 9.1 % (0.0-5.0); % LYMPHOCYTES 45.2 % (20.0-50.0); % MONOCYTES 6.6 % (2.0-10.0); % NEUTROPHILS 38.8 % (40.0-80.0); HEMATOCRIT 46.2 % (41.0-60); HEMOGLOBIN 15.5 gm/dL (12-16); MEAN CELL VOLUME 86.8 fl (80-99); MEAN CORPUSCULAR HEMOGLOBIN 29.1 pg (27.0-31.0); MEAN CORPUSCULAR HGB CONC 33.5 pg (28.0-36.0); NEUTROPHILE ABSOLUTE 4.9 Th/cmm (1.8-8.0); PLATELET COUNT 215 Th/cmm (150-400); RED BLOOD COUNT 5.32 Mil/cmm (3.80-5.80)
[2017-03-30 07:57] LABS: WHITE BLOOD COUNT 12.6 Th/cmm (4.8-10.8)
[2017-03-30 08:25] LABS: ANION GAP 7.9 (7.0-16.0); BUN - UREA NITROGEN 17 mg/dL (7-25); BUN/CREATININE RATIO 28.3; CALCIUM SERUM 9.2 mg/dL (8.6-10.3); CARBON DIOXIDE 29.1 mEq/L (21.0-31.0); CHLORIDE 101 mEq/L (98-107); CREATININE - SERUM 0.6 mg/dL (0.7-1.3); GLUCOSE 85 mg/dL (70-105); SODIUM SERUM 134 mEq/L (136-145)
[2017-03-30] MEDS: Aspirin 81mg Chewable Tab PO SCH (09:00)
[2017-03-30] MEDS: Pantoprazole 40 mg EC Tab PO SCH (09:00)
[2017-03-30] MEDS ORDERED: Haloperidol Lactate 5 mg/mL 1mL Vial IM PRN (11:35)
[2017-03-30] MEDS ORDERED: Haloperidol Lactate 5 mg/mL 1mL Vial ONE (11:39)
--- NOTE | 2017-03-30 19:11 | Internal Medicine Prog Note ---
Internal Medicine Subjective - Subjective Service Date: 03/30/17 Patient seen and examined:: with staff Patient is:: awake, non-verbal, in bed, confused Per staff patient has:: no adverse event Internal Medicine Objective - Results Result Diagrams: 03/30/17 07:15 03/30/17 07:15 Recent Labs: Laboratory Last Values WBC 12.6 Th/cmm (4.8-10.8) H 03/30/17 07:15 RBC 5.32 Mil/cmm (3.80-5.80) 03/30/17 07:15 Hgb 15.5 gm/dL (12-16) 03/30/17 07:15 Hct 46.2 % (41.0-60) 03/30/17 07:15 MCV 86.8 fl (80-99) 03/30/17 07:15 MCH 29.1 pg (27.0-31.0) 03/30/17 07:15 MCHC Differential 33.5 pg (28.0-36.0) 03/30/17 07:15 RDW 14.0 % (11.5-20.0) 03/30/17 07:15 Plt Count 215 Th/cmm (150-400) 03/30/17 07:15 MPV 8.0 fl 03/30/17 07:15 Neutrophils % 38.8 % (40.0-80.0) L 03/30/17 07:15 Band Neutrophils % 2 % (0-10) 03/26/17 07:05 Lymphocytes % 45.2 % (20.0-50.0) 03/30/17 07:15 Monocytes % 6.6 % (2.0-10.0) 03/30/17 07:15 Eosinophils % 9.1 % (0.0-5.0) H 03/30/17 07:15 Basophils % 0.3 % (0.0-2.0) 03/30/17 07:15 Neutrophils (Manual) 67 % (40-80) 03/26/17 07:05 Lymphocytes 23 % (20-50) 03/26/17 07:05 Monocytes 5 % (2-10) 03/26/17 07:05 Eosinophils 3 % (0-5) 03/26/17 07:05 Sodium 134 mEq/L (136-145) L 03/30/17 07:15 Potassium 4.0 mEq/L (3.5-5.1) 03/30/17 07:15 Chloride 101 mEq/L (98-107) 03/30/17 07:15 Carbon Dioxide 29.1 mEq/L (21.0-31.0) 03/30/17 07:15 Anion Gap 7.9 (7.0-16.0) 03/30/17 07:15 BUN 17 mg/dL (7-25) 03/30/17 07:15 Creatinine 0.6 mg/dL (0.7-1.3) L 03/30/17 07:15 Est GFR ( Amer) TNP 03/30/17 07:15 Est GFR (Non-Af Amer) TNP 03/30/17 07:15 BUN/Creatinine Ratio 28.3 03/30/17 07:15 Glucose 85 mg/dL (70-105) 03/30/17 07:15 POC Glucose 170 MG/DL (70 - 105) H 03/25/17 21:03 Calcium 9.2 mg/dL (8.6-10.3) 03/30/17 07:15 Total Bilirubin 0.5 mg/dL (0.3-1.0) 03/26/17 07:05 AST 14 U/L (13-39) 03/26/17 07:05 ALT 11 U/L (7-52) 03/26/17 07:05 Alkaline Phosphatase 94 U/L (34-104) 03/26/17 07:05 Total Protein 7.0 gm/dL (6.0-8.3) 03/26/17 07:05 Albumin 4.2 gm/dL (4.2-5.5) 03/26/17 07:05 Globulin 2.8 gm/dL 03/26/17 07:05 Albumin/Globulin Ratio 1.5 (1.0-1.8) 03/26/17 07:05 - Physical Exam Vitals and I&O: Vital Signs Temp 97.5 F 03/30/17 15:39 Pulse 87 03/30/17 15:39 Resp 20 03/30/17 15:39 BP 106/67 03/30/17 15:39 Pulse Ox 96 03/30/17 15:39 Intake & Output 03/30/17 03/30/17 03/31/17 06:59 18:59 06:59 Intake Total 300 2400 Balance 300 2400 Intake: Oral 300 2400 Other: # Voids 1 4 # Bowel Movements 0 0 Active Medications: Current Medications Acetaminophen (Tylenol) 650 mg PO Q6H PRN PRN Reason: Mild Pain/Headache/T above 101 Stop: 05/24/17 20:40 Al Hydrox/Mg Hydrox/Simethicone (Maalox) 30 ml PO Q6H PRN PRN Reason: Dyspepsia Stop: 05/24/17 20:40 Albuterol/Ipratropium (Duoneb Neb) 3 ml HHN Q4H PRN PRN Reason: Wheezing Stop: 05/24/17 21:28 Alprazolam (Xanax) 0.5 mg PO Q8HR [facility] PRN Reason: Protocol Stop: 05/25/17 04:59 Last Admin: 03/30/17 13:45 Dose: 0.5 mg Aspirin (Aspirin Chewable) 81 mg PO DAILY [facility] Stop: 05/25/17 08:59 Last Admin: 03/30/17 09:00 Dose: 81 mg Benztropine Mesylate (Cogentin) 0.5 mg PO DAILY [facility] Stop: 05/25/17 08:59 Last Admin: 03/30/17 09:03 Dose: 0.5 mg Citalopram Hydrobromide (Celexa) 20 mg PO DAILY [facility] PRN Reason: Protocol Stop: 05/25/17 08:59 Last Admin: 03/30/17 09:00 Dose: 20 mg Docusate Sodium (Colace) 200 mg PO DAILY [facility] Stop: 05/25/17 08:59 Last Admin: 03/30/17 09:00 Dose: 200 mg Haloperidol Lactate (Haldol) 3 mg IM STAT PRN PRN Reason: Agitation Stop: 05/29/17 11:34 Last Admin: 03/30/17 11:47 Dose: 3 mg Lorazepam (Ativan) 1 mg PO Q6H PRN; Protocol PRN Reason: Anxiety/Agitation Stop: 05/24/17 20:40 Last Admin: 03/30/17 10:54 Dose: 1 mg Magnesium Hydroxide (Milk Of Magnesia) 30 ml PO HS PRN PRN Reason: Constipation Stop: 05/24/17 20:40 Metoclopramide HCl (Reglan) 5 mg PO Q12HR [facility] Stop: 05/24/17 20:59 Last Admin: 03/30/17 09:09 Dose: Not Given Mupirocin (Bactroban Oint) 1 appl NS BID [facility] Stop: 04/02/17 09:01 Last Admin: 03/30/17 17:05 Dose: 1 appl Pantoprazole Sodium (Protonix) 40 mg PO QAM [facility] Stop: 05/25/17 08:59 Last Admin: 03/30/17 09:00 Dose: 40 mg Quetiapine Fumarate (Seroquel) 100 mg PO Q8HR [facility] PRN Reason: Protocol Stop: 05/24/17 20:59 Last Admin: 03/30/17 13:45 Dose: 100 mg Zolpidem Tartrate (Ambien) 5 mg PO HS PRN PRN Reason: Insomnia Stop: 05/24/17 20:40 Last Admin: 03/25/17 21:54 Dose: 5 mg General: demented, obese HEENT: NC/AT, PERRLA, EOMI, anicteric sclerae, throat clear Neck: Supple, No JVD, No thyromegaly, +2 carotid pulse wo bruit, No LAD Lungs: CTAB Cardiovascular: RRR, Normal S1, Normal S2, without murmur Abdomen: soft, non-tender, non-distended Extremities: clear Neurological: unable to follow command Internal Medicine Assmt/Plan - Assessment Assessment: 1.HTN. 2.GERD. 3.DEMENTIA. - Plan Plan: CONTINUE ON CURRENT MEDICATION AND DIET. Nutritional Asmnt/Malnutr-PDOC - Dietary Evaluation Malnutrition Findings (Please click <Entered> for more info): Nutritional Asmnt/Malnutrition Start: 03/30/17 16: 13 Text: Status: Complete Freq: Document 03/30/17 16:14 GSUN (Rec: 03/30/17 16:21 [email or web address]) Nutritional Asmnt/Malnutrition Patient General Information Nutritional Screening Moderate Risk Screening Diagnosis Unspecified psychosis, dementia moderate with psychotic features Pertinent Medical Hx/Surgical Hx Dementia, depression, GERD, DJD, obesity Subjective Information 77 year old male. Pt seen in wheelchair in rec room, asleep and unable to be woken up. Spoke to ALLIED HEALTH TEACHER in rec room, ALLIED HEALTH TEACHER reported pt has good appetite, no difficulties eating, denied nutritional concerns at this time. Pt appeared overweight, no muscle fat wasting noted. Avg PO intake 100% of meals since adm, meeting nutritional needs. Current Diet Order/ Nutrition Support Mech soft chopped. Pertinent Medications Colace, Haldol, MOM, Reglan, Protonix, Seroquel Pertinent Labs Reviewed. Nutritional Hx/Data Height 1.78 m Height (Calculated Centimeters) 177.8 Current Weight (lbs) 92.986 kg Weight (Calculated Kilograms) 93.0 Weight (Calculated Grams) 85309.4 [place] Body Weight 166 Weight Status Overweight GI Symptoms Skin Integrity/Comment: Rajesh Ramsey. Skin dryness. Current %PO Good (75-100%) Estimated Nutritional Goals Calories/Kcals/Kg IBW 166lb/75.5kg Kcals Calculated 1888-2265kcal (25-30kcal/kg) Protein Calculated 76g (1g/kg) Fluid: ml 1888-2265ml (1ml/kcal) Nutritional Problem 1. Problem Problem No nutritional problem at this time. Intervention/Recommendation Comments 1. Continue with current diet order. Avg PO intake is adequate. Expected Outcomes/Goals Expected Outcomes/Goals 1. PO intake continue to meet at least 75% of estimated nutritional needs.
--- NOTE | 2017-03-30 22:30 | Progress Notes ---
DATE: 03/30/2017 SUBJECTIVE: Chart reviewed and the patient interviewed. Also discussed the patient's condition with the staff and reviewed records and labs. The patient is still extremely paranoid and is still easily agitated. The patient also is still demanding and he is still aggressive and is threatening staff and others. The patient also is still having difficulty with controlling his temper and his mood. The patient had to be given Haldol, Ativan, and Benadryl emergency dose in order to calm him down since he was intrusive and threatening nurses. Otherwise, the patient is compliant with taking his medications. ASSESSMENT: The patient is still psychotic and threatening and can be dangerous to others. TREATMENT PLAN: We will continue monitoring his behavior and his condition closely. Also, continue working on his agitation, and follow up closely. JOB# [id number]
[2017-03-31] MEDS: Pantoprazole 40 mg EC Tab PO SCH (09:00)
[2017-03-31] MEDS: Aspirin 81mg Chewable Tab PO SCH (09:00)
--- NOTE | 2017-03-31 19:49 | Internal Medicine Prog Note ---
Internal Medicine Subjective - Subjective Service Date: 03/31/17 Patient seen and examined:: with staff Patient is:: awake, non-verbal, in bed, confused Per staff patient has:: no adverse event Internal Medicine Objective - Results Result Diagrams: 03/30/17 07:15 03/30/17 07:15 Recent Labs: Laboratory Last Values WBC 12.6 Th/cmm (4.8-10.8) H 03/30/17 07:15 RBC 5.32 Mil/cmm (3.80-5.80) 03/30/17 07:15 Hgb 15.5 gm/dL (12-16) 03/30/17 07:15 Hct 46.2 % (41.0-60) 03/30/17 07:15 MCV 86.8 fl (80-99) 03/30/17 07:15 MCH 29.1 pg (27.0-31.0) 03/30/17 07:15 MCHC Differential 33.5 pg (28.0-36.0) 03/30/17 07:15 RDW 14.0 % (11.5-20.0) 03/30/17 07:15 Plt Count 215 Th/cmm (150-400) 03/30/17 07:15 MPV 8.0 fl 03/30/17 07:15 Neutrophils % 38.8 % (40.0-80.0) L 03/30/17 07:15 Band Neutrophils % 2 % (0-10) 03/26/17 07:05 Lymphocytes % 45.2 % (20.0-50.0) 03/30/17 07:15 Monocytes % 6.6 % (2.0-10.0) 03/30/17 07:15 Eosinophils % 9.1 % (0.0-5.0) H 03/30/17 07:15 Basophils % 0.3 % (0.0-2.0) 03/30/17 07:15 Neutrophils (Manual) 67 % (40-80) 03/26/17 07:05 Lymphocytes 23 % (20-50) 03/26/17 07:05 Monocytes 5 % (2-10) 03/26/17 07:05 Eosinophils 3 % (0-5) 03/26/17 07:05 Sodium 134 mEq/L (136-145) L 03/30/17 07:15 Potassium 4.0 mEq/L (3.5-5.1) 03/30/17 07:15 Chloride 101 mEq/L (98-107) 03/30/17 07:15 Carbon Dioxide 29.1 mEq/L (21.0-31.0) 03/30/17 07:15 Anion Gap 7.9 (7.0-16.0) 03/30/17 07:15 BUN 17 mg/dL (7-25) 03/30/17 07:15 Creatinine 0.6 mg/dL (0.7-1.3) L 03/30/17 07:15 Est GFR ( Amer) TNP 03/30/17 07:15 Est GFR (Non-Af Amer) TNP 03/30/17 07:15 BUN/Creatinine Ratio 28.3 03/30/17 07:15 Glucose 85 mg/dL (70-105) 03/30/17 07:15 POC Glucose 170 MG/DL (70 - 105) H 03/25/17 21:03 Calcium 9.2 mg/dL (8.6-10.3) 03/30/17 07:15 Total Bilirubin 0.5 mg/dL (0.3-1.0) 03/26/17 07:05 AST 14 U/L (13-39) 03/26/17 07:05 ALT 11 U/L (7-52) 03/26/17 07:05 Alkaline Phosphatase 94 U/L (34-104) 03/26/17 07:05 Total Protein 7.0 gm/dL (6.0-8.3) 03/26/17 07:05 Albumin 4.2 gm/dL (4.2-5.5) 03/26/17 07:05 Globulin 2.8 gm/dL 03/26/17 07:05 Albumin/Globulin Ratio 1.5 (1.0-1.8) 03/26/17 07:05 - Physical Exam Vitals and I&O: Vital Signs Temp 97.8 F 03/31/17 14:00 Pulse 68 03/31/17 14:00 Resp 20 03/31/17 14:00 BP 108/64 03/31/17 14:00 Pulse Ox 97 03/31/17 14:00 Intake & Output 03/31/17 03/31/17 04/01/17 06:59 18:59 06:59 Intake Total 240 800 Balance 240 800 Intake: Oral 240 800 Other: # Voids 3 3 # Bowel Movements 0 1 Active Medications: Current Medications Acetaminophen (Tylenol) 650 mg PO Q6H PRN PRN Reason: Mild Pain/Headache/T above 101 Stop: 05/24/17 20:40 Al Hydrox/Mg Hydrox/Simethicone (Maalox) 30 ml PO Q6H PRN PRN Reason: Dyspepsia Stop: 05/24/17 20:40 Albuterol/Ipratropium (Duoneb Neb) 3 ml HHN Q4H PRN PRN Reason: Wheezing Stop: 05/24/17 21:28 Alprazolam (Xanax) 0.5 mg PO Q8HR [facility] PRN Reason: Protocol Stop: 05/25/17 04:59 Last Admin: 03/31/17 13:18 Dose: 0.5 mg Aspirin (Aspirin Chewable) 81 mg PO DAILY [facility] Stop: 05/25/17 08:59 Last Admin: 03/31/17 09:00 Dose: 81 mg Benztropine Mesylate (Cogentin) 0.5 mg PO DAILY [facility] Stop: 05/25/17 08:59 Last Admin: 03/31/17 08:59 Dose: 0.5 mg Citalopram Hydrobromide (Celexa) 20 mg PO DAILY [facility] PRN Reason: Protocol Stop: 05/25/17 08:59 Last Admin: 03/31/17 08:59 Dose: 20 mg Docusate Sodium (Colace) 200 mg PO DAILY [facility] Stop: 05/25/17 08:59 Last Admin: 03/31/17 08:59 Dose: 200 mg Haloperidol Lactate (Haldol) 3 mg IM STAT PRN PRN Reason: Agitation Stop: 05/29/17 11:34 Last Admin: 03/30/17 11:47 Dose: 3 mg Lorazepam (Ativan) 1 mg PO Q6H PRN; Protocol PRN Reason: Anxiety/Agitation Stop: 05/24/17 20:40 Last Admin: 03/30/17 10:54 Dose: 1 mg Magnesium Hydroxide (Milk Of Magnesia) 30 ml PO HS PRN PRN Reason: Constipation Stop: 05/24/17 20:40 Metoclopramide HCl (Reglan) 5 mg PO Q12HR [facility] Stop: 05/24/17 20:59 Last Admin: 03/31/17 08:59 Dose: 5 mg Mupirocin (Bactroban Oint) 1 appl NS BID [facility] Stop: 04/02/17 09:01 Last Admin: 03/31/17 09:00 Dose: 1 appl Pantoprazole Sodium (Protonix) 40 mg PO QAM [facility] Stop: 05/25/17 08:59 Last Admin: 03/31/17 09:00 Dose: 40 mg Quetiapine Fumarate (Seroquel) 100 mg PO Q8HR [facility] PRN Reason: Protocol Stop: 05/24/17 20:59 Last Admin: 03/31/17 13:18 Dose: 100 mg Zolpidem Tartrate (Ambien) 5 mg PO HS PRN PRN Reason: Insomnia Stop: 05/24/17 20:40 Last Admin: 03/25/17 21:54 Dose: 5 mg General: demented, obese HEENT: NC/AT, PERRLA, EOMI, anicteric sclerae, throat clear Neck: Supple, No JVD, No thyromegaly, +2 carotid pulse wo bruit, No LAD Lungs: CTAB Cardiovascular: RRR, Normal S1, Normal S2, without murmur Abdomen: soft, non-tender, non-distended Extremities: clear Neurological: unable to follow command Internal Medicine Assmt/Plan - Assessment Assessment: 1.HTN. 2.GERD. 3.DEMENTIA. - Plan Plan: CONTINUE ON CURRENT MEDICATION AND DIET. Nutritional Asmnt/Malnutr-PDOC - Dietary Evaluation Malnutrition Findings (Please click <Entered> for more info): Nutritional Asmnt/Malnutrition Start: 03/30/17 16: 13 Text: Status: Complete Freq: Document 03/30/17 16:14 GSUN (Rec: 03/30/17 16:21 [email or web address] [email or web address]) Nutritional Asmnt/Malnutrition Patient General Information Nutritional Screening Moderate Risk Screening Diagnosis Unspecified psychosis, dementia moderate with psychotic features Pertinent Medical Hx/Surgical Hx Dementia, depression, GERD, DJD, obesity Subjective Information 77 year old male. Pt seen in wheelchair in rec room, asleep and unable to be woken up. Spoke to MEDICAL TECHNOLOGIST HEMATOLOGY in rec room, MEDICAL TECHNOLOGIST HEMATOLOGY reported pt has good appetite, no difficulties eating, denied nutritional concerns at this time. Pt appeared overweight, no muscle fat wasting noted. Avg PO intake 100% of meals since adm, meeting nutritional needs. Current Diet Order/ Nutrition Support Mech soft chopped. Pertinent Medications Colace, Haldol, MOM, Reglan, Protonix, Seroquel Pertinent Labs Reviewed. Nutritional Hx/Data Height 1.78 m Height (Calculated Centimeters) 177.8 Current Weight (lbs) 92.986 kg Weight (Calculated Kilograms) 93.0 Weight (Calculated Grams) 44707.4 [place] Body Weight 166 Weight Status Overweight GI Symptoms Skin Integrity/Comment: Rajesh Ramsey. Skin dryness. Current %PO Good (75-100%) Estimated Nutritional Goals Calories/Kcals/Kg IBW 166lb/75.5kg Kcals Calculated 1888-2265kcal (25-30kcal/kg) Protein Calculated 76g (1g/kg) Fluid: ml 1888-2265ml (1ml/kcal) Nutritional Problem 1. Problem Problem No nutritional problem at this time. Intervention/Recommendation Comments 1. Continue with current diet order. Avg PO intake is adequate. Expected Outcomes/Goals Expected Outcomes/Goals 1. PO intake continue to meet at least 75% of estimated nutritional needs.
--- NOTE | 2017-03-31 20:57 | Progress Notes ---
DATE: 03/31/2017 SUBJECTIVE: Chart reviewed and the patient interviewed. Also discussed the patient's condition with the staff and reviewed records and labs. The patient is still suspicious and is still paranoid. The patient also is complaining of insomnia. Also, still thinks that TV is talking about him. Also, is still withdrawn, isolative, and personal hygiene is poor. Otherwise, the patient is compliant with taking his medications and patient denies any side effects of medications. ASSESSMENT: The patient is still psychotic. TREATMENT PLAN: Continue to monitor his behavior and his condition closely. Also, continue working on his agitation and irritability and we will continue to follow up. JOB# [id number]
[2017-04-01] MEDS: Pantoprazole 40 mg EC Tab PO SCH (08:52)
[2017-04-01] MEDS: Aspirin 81mg Chewable Tab PO SCH (08:56)
--- NOTE | 2017-04-01 10:37 | Internal Medicine Prog Note ---
Internal Medicine Subjective - Subjective Service Date: 04/01/17 Patient seen and examined:: without staff Patient is:: awake, non-verbal, in bed, confused Per staff patient has:: no adverse event Internal Medicine Objective - Results Result Diagrams: 03/30/17 07:15 03/30/17 07:15 Recent Labs: Laboratory Last Values WBC 12.6 Th/cmm (4.8-10.8) H 03/30/17 07:15 RBC 5.32 Mil/cmm (3.80-5.80) 03/30/17 07:15 Hgb 15.5 gm/dL (12-16) 03/30/17 07:15 Hct 46.2 % (41.0-60) 03/30/17 07:15 MCV 86.8 fl (80-99) 03/30/17 07:15 MCH 29.1 pg (27.0-31.0) 03/30/17 07:15 MCHC Differential 33.5 pg (28.0-36.0) 03/30/17 07:15 RDW 14.0 % (11.5-20.0) 03/30/17 07:15 Plt Count 215 Th/cmm (150-400) 03/30/17 07:15 MPV 8.0 fl 03/30/17 07:15 Neutrophils % 38.8 % (40.0-80.0) L 03/30/17 07:15 Band Neutrophils % 2 % (0-10) 03/26/17 07:05 Lymphocytes % 45.2 % (20.0-50.0) 03/30/17 07:15 Monocytes % 6.6 % (2.0-10.0) 03/30/17 07:15 Eosinophils % 9.1 % (0.0-5.0) H 03/30/17 07:15 Basophils % 0.3 % (0.0-2.0) 03/30/17 07:15 Neutrophils (Manual) 67 % (40-80) 03/26/17 07:05 Lymphocytes 23 % (20-50) 03/26/17 07:05 Monocytes 5 % (2-10) 03/26/17 07:05 Eosinophils 3 % (0-5) 03/26/17 07:05 Sodium 134 mEq/L (136-145) L 03/30/17 07:15 Potassium 4.0 mEq/L (3.5-5.1) 03/30/17 07:15 Chloride 101 mEq/L (98-107) 03/30/17 07:15 Carbon Dioxide 29.1 mEq/L (21.0-31.0) 03/30/17 07:15 Anion Gap 7.9 (7.0-16.0) 03/30/17 07:15 BUN 17 mg/dL (7-25) 03/30/17 07:15 Creatinine 0.6 mg/dL (0.7-1.3) L 03/30/17 07:15 Est GFR ( Amer) TNP 03/30/17 07:15 Est GFR (Non-Af Amer) TNP 03/30/17 07:15 BUN/Creatinine Ratio 28.3 03/30/17 07:15 Glucose 85 mg/dL (70-105) 03/30/17 07:15 POC Glucose 170 MG/DL (70 - 105) H 03/25/17 21:03 Calcium 9.2 mg/dL (8.6-10.3) 03/30/17 07:15 Total Bilirubin 0.5 mg/dL (0.3-1.0) 03/26/17 07:05 AST 14 U/L (13-39) 03/26/17 07:05 ALT 11 U/L (7-52) 03/26/17 07:05 Alkaline Phosphatase 94 U/L (34-104) 03/26/17 07:05 Total Protein 7.0 gm/dL (6.0-8.3) 03/26/17 07:05 Albumin 4.2 gm/dL (4.2-5.5) 03/26/17 07:05 Globulin 2.8 gm/dL 03/26/17 07:05 Albumin/Globulin Ratio 1.5 (1.0-1.8) 03/26/17 07:05 - Physical Exam Vitals and I&O: Vital Signs Temp 98.3 F 04/01/17 06:31 Pulse 66 04/01/17 07:20 Resp 18 04/01/17 07:20 BP 105/69 04/01/17 06:31 Pulse Ox 95 04/01/17 07:20 Intake & Output 03/31/17 04/01/17 04/01/17 18:59 06:59 18:59 Intake Total 800 120 Balance 800 120 Intake: Oral 800 120 Other: # Voids 3 3 # Bowel Movements 1 Active Medications: Current Medications Acetaminophen (Tylenol) 650 mg PO Q6H PRN PRN Reason: Mild Pain/Headache/T above 101 Stop: 05/24/17 20:40 Al Hydrox/Mg Hydrox/Simethicone (Maalox) 30 ml PO Q6H PRN PRN Reason: Dyspepsia Stop: 05/24/17 20:40 Albuterol/Ipratropium (Duoneb Neb) 3 ml HHN Q4H PRN PRN Reason: Wheezing Stop: 05/24/17 21:28 Alprazolam (Xanax) 0.5 mg PO Q8HR BROOK PRN Reason: Protocol Stop: 05/25/17 04:59 Last Admin: 04/01/17 05:11 Dose: 0.5 mg Aspirin (Aspirin Chewable) 81 mg PO DAILY BROOK Stop: 05/25/17 08:59 Last Admin: 04/01/17 08:56 Dose: 81 mg Benztropine Mesylate (Cogentin) 0.5 mg PO DAILY BROOK Stop: 05/25/17 08:59 Last Admin: 04/01/17 08:52 Dose: 0.5 mg Citalopram Hydrobromide (Celexa) 20 mg PO DAILY BROOK PRN Reason: Protocol Stop: 05/25/17 08:59 Last Admin: 04/01/17 08:56 Dose: 20 mg Docusate Sodium (Colace) 200 mg PO DAILY BROOK Stop: 05/25/17 08:59 Last Admin: 04/01/17 08:55 Dose: 200 mg Haloperidol Lactate (Haldol) 3 mg IM STAT PRN PRN Reason: Agitation Stop: 05/29/17 11:34 Last Admin: 03/30/17 11:47 Dose: 3 mg Lorazepam (Ativan) 1 mg PO Q6H PRN; Protocol PRN Reason: Anxiety/Agitation Stop: 05/24/17 20:40 Last Admin: 04/01/17 09:37 Dose: 1 mg Magnesium Hydroxide (Milk Of Magnesia) 30 ml PO HS PRN PRN Reason: Constipation Stop: 05/24/17 20:40 Metoclopramide HCl (Reglan) 5 mg PO Q12HR BROOK Stop: 05/24/17 20:59 Last Admin: 04/01/17 08:52 Dose: 5 mg Mupirocin (Bactroban Oint) 1 appl NS BID BROOK Stop: 04/02/17 09:01 Last Admin: 04/01/17 09:02 Dose: 1 appl Pantoprazole Sodium (Protonix) 40 mg PO QAM BROOK Stop: 05/25/17 08:59 Last Admin: 04/01/17 08:52 Dose: 40 mg Quetiapine Fumarate (Seroquel) 100 mg PO DAILY BROOK PRN Reason: Protocol Stop: 05/31/17 08:59 Last Admin: 04/01/17 08:57 Dose: 100 mg Quetiapine Fumarate 200 mg/ (Quetiapine Fumarate 50 mg) 250 mg PO HS BROOK Stop: 05/31/17 20:59 Zolpidem Tartrate (Ambien) 5 mg PO HS PRN PRN Reason: Insomnia Stop: 05/24/17 20:40 Last Admin: 03/25/17 21:54 Dose: 5 mg General: demented, obese HEENT: NC/AT, PERRLA, EOMI, anicteric sclerae, throat clear Neck: Supple, No JVD, No thyromegaly, +2 carotid pulse wo bruit, No LAD Lungs: CTAB Cardiovascular: RRR, Normal S1, Normal S2, without murmur Abdomen: soft, non-tender, non-distended Extremities: clear Neurological: unable to follow command Internal Medicine Assmt/Plan - Assessment Assessment: 1.HTN. 2.GERD. 3.DEMENTIA. - Plan Plan: CONTINUE ON CURRENT MEDICATION AND DIET. Nutritional Asmnt/Malnutr-PDOC - Dietary Evaluation Malnutrition Findings (Please click <Entered> for more info): Nutritional Asmnt/Malnutrition Start: 03/30/17 16: 13 Text: Status: Complete Freq: Document 03/30/17 16:14 GSUN (Rec: 03/30/17 16:21 GSUN [email or web address]) Nutritional Asmnt/Malnutrition Patient General Information Nutritional Screening Moderate Risk Screening Diagnosis Unspecified psychosis, dementia moderate with psychotic features Pertinent Medical Hx/Surgical Hx Dementia, depression, GERD, DJD, obesity Subjective Information 77 year old male. Pt seen in wheelchair in rec room, asleep and unable to be woken up. Spoke to SEARCH ENGINE MARKETING SPECIALIST in rec room, SEARCH ENGINE MARKETING SPECIALIST reported pt has good appetite, no difficulties eating, denied nutritional concerns at this time. Pt appeared overweight, no muscle fat wasting noted. Avg PO intake 100% of meals since adm, meeting nutritional needs. [facility] Pertinent Medications Colace, Haldol, MOM, Reglan, Protonix, Seroquel Pertinent Labs Reviewed. Nutritional Hx/Data Height 1.78 m Height (Calculated Centimeters) 177.8 Current Weight (lbs) 92.986 kg Weight (Calculated Kilograms) 93.0 Weight (Calculated Grams) 30845.4 [place] Body Weight 166 Weight Status Overweight GI Symptoms Skin Integrity/Comment: Rajesh 17. Skin dryness. Current %PO Good (75-100%) Estimated Nutritional Goals Calories/Kcals/Kg IBW 166lb/75.5kg Kcals Calculated 1888-2265kcal (25-30kcal/kg) Protein Calculated 76g (1g/kg) Fluid: ml 1888-2265ml (1ml/kcal) Nutritional Problem 1. Problem Problem No nutritional problem at this time. Intervention/Recommendation Comments 1. Continue with current diet order. Avg PO intake is adequate. Expected Outcomes/Goals Expected Outcomes/Goals 1. PO intake continue to meet at least 75% of estimated nutritional needs.
--- NOTE | 2017-04-01 18:33 | Progress Notes ---
DATE: 04/01/2017 SUBJECTIVE: Chart reviewed and the patient interviewed. Also discussed the patient's condition with the staff and reviewed records and labs. The patient remains extremely agitated and is still in an irritable mood. The patient also is anxious and has been aggressive with the staff. The patient also has been suspicious and he has been paranoid. He is still talking about himself being talked about on the TV. The patient still needs lots of redirection. Otherwise, the patient is compliant with taking Celexa with no side effects of Celexa. The patient also is taking Seroquel every 8 hours. ASSESSMENT: The patient is still agitated and is still psychotic. TREATMENT PLAN: We will monitor his behavior and his condition closely. Also, we will change Seroquel to 100 mg in the morning and 250 mg at bedtime. Also, we will continue to work on his poor impulse control and his irritability. JOB# [id number]
--- NOTE | 2017-04-02 08:12 | Progress Notes ---
DATE: 04/02/2017 SUBJECTIVE: Chart reviewed and the patient interviewed. Also discussed the patient's condition with the staff and reviewed records and labs. The patient is confused and is still forgetful. The patient also is still angry and is still easily agitated. Also, refusing to take a shower. The patient also needs lots of redirections, but he has difficulty following directions. He also is suspicious and is still paranoid. Otherwise, the patient is compliant with taking his medications with no side effects of medications. ASSESSMENT: The patient is still psychotic, agitated, and depressed. TREATMENT PLAN: Continue monitoring his behavior and his condition closely. Also, we will increase Seroquel mg in the morning and 300 mg at bedtime and we will continue to follow up closely. [facility]# [id number]
[2017-04-02] MEDS: Aspirin 81mg Chewable Tab PO SCH (08:51)
[2017-04-02] MEDS: Pantoprazole 40 mg EC Tab PO SCH (08:51)
[2017-04-02] MEDS ORDERED: Haloperidol Lactate 5 mg/mL 1mL Vial IM ONE (13:58)
--- NOTE | 2017-04-02 20:14 | Internal Medicine Prog Note ---
Internal Medicine Subjective - Subjective Service Date: 04/02/17 Patient seen and examined:: without staff Patient is:: awake, non-verbal, in bed, confused Per staff patient has:: no adverse event Internal Medicine Objective - Results Result Diagrams: 03/30/17 07:15 03/30/17 07:15 Recent Labs: Laboratory Last Values WBC 12.6 Th/cmm (4.8-10.8) H 03/30/17 07:15 RBC 5.32 Mil/cmm (3.80-5.80) 03/30/17 07:15 Hgb 15.5 gm/dL (12-16) 03/30/17 07:15 Hct 46.2 % (41.0-60) 03/30/17 07:15 MCV 86.8 fl (80-99) 03/30/17 07:15 MCH 29.1 pg (27.0-31.0) 03/30/17 07:15 MCHC Differential 33.5 pg (28.0-36.0) 03/30/17 07:15 RDW 14.0 % (11.5-20.0) 03/30/17 07:15 Plt Count 215 Th/cmm (150-400) 03/30/17 07:15 MPV 8.0 fl 03/30/17 07:15 Neutrophils % 38.8 % (40.0-80.0) L 03/30/17 07:15 Band Neutrophils % 2 % (0-10) 03/26/17 07:05 Lymphocytes % 45.2 % (20.0-50.0) 03/30/17 07:15 Monocytes % 6.6 % (2.0-10.0) 03/30/17 07:15 Eosinophils % 9.1 % (0.0-5.0) H 03/30/17 07:15 Basophils % 0.3 % (0.0-2.0) 03/30/17 07:15 Neutrophils (Manual) 67 % (40-80) 03/26/17 07:05 Lymphocytes 23 % (20-50) 03/26/17 07:05 Monocytes 5 % (2-10) 03/26/17 07:05 Eosinophils 3 % (0-5) 03/26/17 07:05 Sodium 134 mEq/L (136-145) L 03/30/17 07:15 Potassium 4.0 mEq/L (3.5-5.1) 03/30/17 07:15 Chloride 101 mEq/L (98-107) 03/30/17 07:15 Carbon Dioxide 29.1 mEq/L (21.0-31.0) 03/30/17 07:15 Anion Gap 7.9 (7.0-16.0) 03/30/17 07:15 BUN 17 mg/dL (7-25) 03/30/17 07:15 Creatinine 0.6 mg/dL (0.7-1.3) L 03/30/17 07:15 Est GFR ( Amer) TNP 03/30/17 07:15 Est GFR (Non-Af Amer) TNP 03/30/17 07:15 BUN/Creatinine Ratio 28.3 03/30/17 07:15 Glucose 85 mg/dL (70-105) 03/30/17 07:15 POC Glucose 170 MG/DL (70 - 105) H 03/25/17 21:03 Calcium 9.2 mg/dL (8.6-10.3) 03/30/17 07:15 Total Bilirubin 0.5 mg/dL (0.3-1.0) 03/26/17 07:05 AST 14 U/L (13-39) 03/26/17 07:05 ALT 11 U/L (7-52) 03/26/17 07:05 Alkaline Phosphatase 94 U/L (34-104) 03/26/17 07:05 Total Protein 7.0 gm/dL (6.0-8.3) 03/26/17 07:05 Albumin 4.2 gm/dL (4.2-5.5) 03/26/17 07:05 Globulin 2.8 gm/dL 03/26/17 07:05 Albumin/Globulin Ratio 1.5 (1.0-1.8) 03/26/17 07:05 - Physical Exam Vitals and I&O: Vital Signs Temp 98.4 F 04/02/17 14:00 Pulse 73 04/02/17 19:50 Resp 20 04/02/17 19:50 BP 122/85 04/02/17 14:00 Pulse Ox 94 04/02/17 19:50 Intake & Output 04/02/17 04/02/17 04/03/17 06:59 18:59 06:59 Intake Total 120 1200 Balance 120 1200 Intake: Oral 120 1200 Other: # Voids 3 # Bowel Movements 1 Active Medications: Current Medications Acetaminophen (Tylenol) 650 mg PO Q6H PRN PRN Reason: Mild Pain/Headache/T above 101 Stop: 05/24/17 20:40 Al Hydrox/Mg Hydrox/Simethicone (Maalox) 30 ml PO Q6H PRN PRN Reason: Dyspepsia Stop: 05/24/17 20:40 Albuterol/Ipratropium (Duoneb Neb) 3 ml HHN Q4H PRN PRN Reason: Wheezing Stop: 05/24/17 21:28 Alprazolam (Xanax) 0.5 mg PO Q8HR BROOK PRN Reason: Protocol Stop: 05/25/17 04:59 Last Admin: 04/02/17 12:18 Dose: 0.5 mg Aspirin (Aspirin Chewable) 81 mg PO DAILY BROOK Stop: 05/25/17 08:59 Last Admin: 04/02/17 08:51 Dose: 81 mg Benztropine Mesylate (Cogentin) 0.5 mg PO DAILY BROOK Stop: 05/25/17 08:59 Last Admin: 04/02/17 08:50 Dose: 0.5 mg Citalopram Hydrobromide (Celexa) 20 mg PO DAILY BROOK PRN Reason: Protocol Stop: 05/25/17 08:59 Last Admin: 04/02/17 08:51 Dose: 20 mg Docusate Sodium (Colace) 200 mg PO DAILY BROOK Stop: 05/25/17 08:59 Last Admin: 04/02/17 08:51 Dose: 200 mg Haloperidol Lactate (Haldol) 3 mg IM STAT PRN PRN Reason: Agitation Stop: 05/29/17 11:34 Last Admin: 03/30/17 11:47 Dose: 3 mg Magnesium Hydroxide (Milk Of Magnesia) 30 ml PO HS PRN PRN Reason: Constipation Stop: 05/24/17 20:40 Metoclopramide HCl (Reglan) 5 mg PO Q12HR BROOK Stop: 05/24/17 20:59 Last Admin: 04/02/17 08:51 Dose: 5 mg Pantoprazole Sodium (Protonix) 40 mg PO QAM BROOK Stop: 05/25/17 08:59 Last Admin: 04/02/17 08:51 Dose: 40 mg Quetiapine Fumarate (Seroquel) 100 mg PO DAILY BROOK PRN Reason: Protocol Stop: 05/31/17 08:59 Last Admin: 04/02/17 08:50 Dose: 100 mg Quetiapine Fumarate (Seroquel) 300 mg PO HS BROOK Stop: 05/31/17 20:59 General: demented, obese HEENT: NC/AT, PERRLA, EOMI, anicteric sclerae, throat clear Neck: Supple, No JVD, No thyromegaly, +2 carotid pulse wo bruit, No LAD Lungs: CTAB Cardiovascular: RRR, Normal S1, Normal S2, without murmur Abdomen: soft, non-tender, non-distended Extremities: clear Neurological: unable to follow command Internal Medicine Assmt/Plan - Assessment Assessment: 1.HTN. 2.GERD. 3.DEMENTIA. - Plan Plan: CONTINUE ON CURRENT MEDICATION AND DIET. Nutritional Asmnt/Malnutr-PDOC - Dietary Evaluation Malnutrition Findings (Please click <Entered> for more info): Nutritional Asmnt/Malnutrition Start: 03/30/17 16: 13 Text: Status: Complete Freq: Document 03/30/17 16:14 GSUN (Rec: 03/30/17 16:21 [email or web address] Nutritional Asmnt/Malnutrition Patient General Information Nutritional Screening Moderate Risk Screening Diagnosis Unspecified psychosis, dementia moderate with psychotic features Pertinent Medical Hx/Surgical Hx Dementia, depression, GERD, DJD, obesity Subjective Information 77 year old male. Pt seen in wheelchair in rec room, asleep and unable to be woken up. Spoke to PUBLIC HEALTH REPRESENTATIVE in rec room, PUBLIC HEALTH REPRESENTATIVE reported pt has good appetite, no difficulties eating, denied nutritional concerns at this time. Pt appeared overweight, no muscle fat wasting noted. Avg PO intake 100% of meals since adm, meeting nutritional needs. Current Diet Order/ Nutrition Support [facility] soft chopped. Pertinent Medications Colace, Haldol, MOM, Reglan, Protonix, Seroquel Pertinent Labs Reviewed. Nutritional Hx/Data Height 1.78 m Height (Calculated Centimeters) 177.8 Current Weight (lbs) 92.986 kg Weight (Calculated Kilograms) 93.0 Weight (Calculated Grams) 89338.4 [place] Body Weight 166 Weight Status Overweight GI Symptoms Skin Integrity/Comment: Rajesh 17. Skin dryness. Current %PO Good (75-100%) Estimated Nutritional Goals Calories/Kcals/Kg IBW 166lb/75.5kg Kcals Calculated 1888-2265kcal (25-30kcal/kg) Protein Calculated 76g (1g/kg) Fluid: ml 1888-2265ml (1ml/kcal) Nutritional Problem 1. Problem Problem No nutritional problem at this time. Intervention/Recommendation Comments 1. Continue with current diet order. Avg PO intake is adequate. Expected Outcomes/Goals Expected Outcomes/Goals 1. PO intake continue to meet at least 75% of estimated nutritional needs.
[2017-04-03] MEDS: Pantoprazole 40 mg EC Tab PO SCH (08:24)
[2017-04-03] MEDS: Aspirin 81mg Chewable Tab PO SCH (08:24)
--- NOTE | 2017-04-03 17:26 | Internal Medicine Prog Note ---
Internal Medicine Subjective - Subjective Service Date: 04/03/17 Patient seen and examined:: without staff Patient is:: awake, non-verbal, in bed, confused Per staff patient has:: no adverse event Internal Medicine Objective - Results Result Diagrams: 03/30/17 07:15 03/30/17 07:15 Recent Labs: Laboratory Last Values WBC 12.6 Th/cmm (4.8-10.8) H 03/30/17 07:15 RBC 5.32 Mil/cmm (3.80-5.80) 03/30/17 07:15 Hgb 15.5 gm/dL (12-16) 03/30/17 07:15 Hct 46.2 % (41.0-60) 03/30/17 07:15 MCV 86.8 fl (80-99) 03/30/17 07:15 MCH 29.1 pg (27.0-31.0) 03/30/17 07:15 MCHC Differential 33.5 pg (28.0-36.0) 03/30/17 07:15 RDW 14.0 % (11.5-20.0) 03/30/17 07:15 Plt Count 215 Th/cmm (150-400) 03/30/17 07:15 MPV 8.0 fl 03/30/17 07:15 Neutrophils % 38.8 % (40.0-80.0) L 03/30/17 07:15 Band Neutrophils % 2 % (0-10) 03/26/17 07:05 Lymphocytes % 45.2 % (20.0-50.0) 03/30/17 07:15 Monocytes % 6.6 % (2.0-10.0) 03/30/17 07:15 Eosinophils % 9.1 % (0.0-5.0) H 03/30/17 07:15 Basophils % 0.3 % (0.0-2.0) 03/30/17 07:15 Neutrophils (Manual) 67 % (40-80) 03/26/17 07:05 Lymphocytes 23 % (20-50) 03/26/17 07:05 Monocytes 5 % (2-10) 03/26/17 07:05 Eosinophils 3 % (0-5) 03/26/17 07:05 Sodium 134 mEq/L (136-145) L 03/30/17 07:15 Potassium 4.0 mEq/L (3.5-5.1) 03/30/17 07:15 Chloride 101 mEq/L (98-107) 03/30/17 07:15 Carbon Dioxide 29.1 mEq/L (21.0-31.0) 03/30/17 07:15 Anion Gap 7.9 (7.0-16.0) 03/30/17 07:15 BUN 17 mg/dL (7-25) 03/30/17 07:15 Creatinine 0.6 mg/dL (0.7-1.3) L 03/30/17 07:15 Est GFR ( Amer) TNP 03/30/17 07:15 Est GFR (Non-Af Amer) TNP 03/30/17 07:15 BUN/Creatinine Ratio 28.3 03/30/17 07:15 Glucose 85 mg/dL (70-105) 03/30/17 07:15 POC Glucose 170 MG/DL (70 - 105) H 03/25/17 21:03 Calcium 9.2 mg/dL (8.6-10.3) 03/30/17 07:15 Total Bilirubin 0.5 mg/dL (0.3-1.0) 03/26/17 07:05 AST 14 U/L (13-39) 03/26/17 07:05 ALT 11 U/L (7-52) 03/26/17 07:05 Alkaline Phosphatase 94 U/L (34-104) 03/26/17 07:05 Total Protein 7.0 gm/dL (6.0-8.3) 03/26/17 07:05 Albumin 4.2 gm/dL (4.2-5.5) 03/26/17 07:05 Globulin 2.8 gm/dL 03/26/17 07:05 Albumin/Globulin Ratio 1.5 (1.0-1.8) 03/26/17 07:05 - Physical Exam Vitals and I&O: Vital Signs Temp 97.4 F 04/03/17 15:53 Pulse 72 04/03/17 15:53 Resp 18 04/03/17 15:53 BP 101/56 04/03/17 15:53 Pulse Ox 97 04/03/17 15:53 Intake & Output 04/02/17 04/03/17 04/03/17 18:59 06:59 18:59 Intake Total 1200 120 Balance 1200 120 Intake: Oral 1200 120 Other: # Voids 3 # Bowel Movements 1 Active Medications: Current Medications Acetaminophen (Tylenol) 650 mg PO Q6H PRN PRN Reason: Mild Pain/Headache/T above 101 Stop: 05/24/17 20:40 Al Hydrox/Mg Hydrox/Simethicone (Maalox) 30 ml PO Q6H PRN PRN Reason: Dyspepsia Stop: 05/24/17 20:40 Albuterol/Ipratropium (Duoneb Neb) 3 ml HHN Q4H PRN PRN Reason: Wheezing Stop: 05/24/17 21:28 Alprazolam (Xanax) 0.5 mg PO Q8HR BROOK PRN Reason: Protocol Stop: 05/25/17 04:59 Last Admin: 04/03/17 12:38 Dose: 0.5 mg Aspirin (Aspirin Chewable) 81 mg PO DAILY BROOK Stop: 05/25/17 08:59 Last Admin: 04/03/17 08:24 Dose: 81 mg Benztropine Mesylate (Cogentin) 0.5 mg PO DAILY BROOK Stop: 05/25/17 08:59 Last Admin: 04/03/17 08:23 Dose: 0.5 mg Citalopram Hydrobromide (Celexa) 20 mg PO DAILY BROOK PRN Reason: Protocol Stop: 05/25/17 08:59 Last Admin: 04/03/17 08:23 Dose: 20 mg Docusate Sodium (Colace) 200 mg PO DAILY BROOK Stop: 05/25/17 08:59 Last Admin: 04/03/17 08:23 Dose: 200 mg Lorazepam (Ativan) 1 mg PO Q6HR PRN; Protocol PRN Reason: Agitation Stop: 06/02/17 07:55 Last Admin: 04/03/17 16:03 Dose: 1 mg Magnesium Hydroxide (Milk Of Magnesia) 30 ml PO HS PRN PRN Reason: Constipation Stop: 05/24/17 20:40 Metoclopramide HCl (Reglan) 5 mg PO Q12HR BROOK Stop: 05/24/17 20:59 Last Admin: 04/03/17 08:30 Dose: Not Given Pantoprazole Sodium (Protonix) 40 mg PO QAM BROOK Stop: 05/25/17 08:59 Last Admin: 04/03/17 08:24 Dose: 40 mg Quetiapine Fumarate (Seroquel) 100 mg PO DAILY BROOK PRN Reason: Protocol Stop: 05/31/17 08:59 Last Admin: 04/03/17 08:30 Dose: 100 mg Quetiapine Fumarate (Seroquel) 300 mg PO HS BROOK Stop: 05/31/17 20:59 Last Admin: 04/02/17 20:41 Dose: 300 mg Zolpidem Tartrate (Ambien) 5 mg PO HS PRN PRN Reason: Insomnia Stop: 06/02/17 07:57 General: demented, obese HEENT: NC/AT, PERRLA, EOMI, anicteric sclerae, throat clear Neck: Supple, No JVD, No thyromegaly, +2 carotid pulse wo bruit, No LAD Lungs: CTAB Cardiovascular: RRR, Normal S1, Normal S2, without murmur Abdomen: soft, non-tender, non-distended Extremities: clear Neurological: unable to follow command Internal Medicine Assmt/Plan - Assessment Assessment: 1.HTN. 2.GERD. 3.DEMENTIA. - Plan Plan: CONTINUE ON CURRENT MEDICATION AND DIET. Nutritional Asmnt/Malnutr-PDOC - Dietary Evaluation Malnutrition Findings (Please click <Entered> for more info): Nutritional Asmnt/Malnutrition Start: 03/30/17 16: 13 Text: Status: Complete Freq: Document 03/30/17 16:14 GSUN (Rec: 03/30/17 16:21 GSUN [email or web address]) Nutritional Asmnt/Malnutrition Patient General Information Nutritional Screening Moderate Risk Screening Diagnosis Unspecified psychosis, dementia moderate with psychotic features Pertinent Medical Hx/Surgical Hx Dementia, depression, GERD, DJD, obesity Subjective Information 77 year old male. Pt seen in wheelchair in rec room, asleep and unable to be woken up. Spoke to SOFTWARE TEST TECHNICIAN in rec room, SOFTWARE TEST TECHNICIAN reported pt has good appetite, no difficulties eating, denied nutritional concerns at this time. Pt appeared overweight, no muscle fat wasting noted. Avg PO intake 100% of meals since adm, meeting nutritional needs. Current Diet Order/ Nutrition Support [facility] soft chopped. Pertinent Medications Colace, Haldol, MOM, Reglan, Protonix, Seroquel Pertinent Labs Reviewed. Nutritional Hx/Data Height 1.78 m Height (Calculated Centimeters) 177.8 Current Weight (lbs) 92.986 kg Weight (Calculated Kilograms) 93.0 Weight (Calculated Grams) 82345.4 [place] Body Weight 166 Weight Status Overweight GI Symptoms Skin Integrity/Comment: Rajesh 17. Skin dryness. Current %PO Good (75-100%) Estimated Nutritional Goals Calories/Kcals/Kg IBW 166lb/75.5kg Kcals Calculated 1888-2265kcal (25-30kcal/kg) Protein Calculated 76g (1g/kg) Fluid: ml 1888-2265ml (1ml/kcal) Nutritional Problem 1. Problem Problem No nutritional problem at this time. Intervention/Recommendation Comments 1. Continue with current diet order. Avg PO intake is adequate. Expected Outcomes/Goals Expected Outcomes/Goals 1. PO intake continue to meet at least 75% of estimated nutritional needs.
--- NOTE | 2017-04-03 21:11 | Progress Notes ---
DATE: 04/03/2017 SUBJECTIVE: Chart reviewed and the patient interviewed. Also discussed the patient's condition with the staff and reviewed records and labs. Staff reports that the patient has been yelling and screaming at times and is still confused and forgetful. The patient also is still irritable and is still easily agitated. Also, has difficulty sleeping all night. On the other hand, the patient continued to take Seroquel and Celexa with no side effects. Discussed with family service caseworker discharge plans and is still working on placement issue and discharge plans. ASSESSMENT: The patient is still psychotic and confused. TREATMENT PLAN: We will continue monitoring his behavior and his condition closely. Also, continue to work on his psychosis and adjusting psychotropic medications. [facility]# [id number]
[2017-04-04] MEDS: Aspirin 81mg Chewable Tab PO SCH (08:41)
[2017-04-04] MEDS: Pantoprazole 40 mg EC Tab PO SCH (08:41)
--- NOTE | 2017-04-04 14:45 | Internal Medicine Prog Note ---
Internal Medicine Subjective - Subjective Service Date: 04/04/17 Patient seen and examined:: without staff Patient is:: awake, non-verbal, in bed, confused Per staff patient has:: no adverse event Internal Medicine Objective - Results Result Diagrams: 03/30/17 07:15 03/30/17 07:15 Recent Labs: Laboratory Last Values WBC 12.6 Th/cmm (4.8-10.8) H 03/30/17 07:15 RBC 5.32 Mil/cmm (3.80-5.80) 03/30/17 07:15 Hgb 15.5 gm/dL (12-16) 03/30/17 07:15 Hct 46.2 % (41.0-60) 03/30/17 07:15 MCV 86.8 fl (80-99) 03/30/17 07:15 MCH 29.1 pg (27.0-31.0) 03/30/17 07:15 MCHC Differential 33.5 pg (28.0-36.0) 03/30/17 07:15 RDW 14.0 % (11.5-20.0) 03/30/17 07:15 Plt Count 215 Th/cmm (150-400) 03/30/17 07:15 MPV 8.0 fl 03/30/17 07:15 Neutrophils % 38.8 % (40.0-80.0) L 03/30/17 07:15 Band Neutrophils % 2 % (0-10) 03/26/17 07:05 Lymphocytes % 45.2 % (20.0-50.0) 03/30/17 07:15 Monocytes % 6.6 % (2.0-10.0) 03/30/17 07:15 Eosinophils % 9.1 % (0.0-5.0) H 03/30/17 07:15 Basophils % 0.3 % (0.0-2.0) 03/30/17 07:15 Neutrophils (Manual) 67 % (40-80) 03/26/17 07:05 Lymphocytes 23 % (20-50) 03/26/17 07:05 Monocytes 5 % (2-10) 03/26/17 07:05 Eosinophils 3 % (0-5) 03/26/17 07:05 Sodium 134 mEq/L (136-145) L 03/30/17 07:15 Potassium 4.0 mEq/L (3.5-5.1) 03/30/17 07:15 Chloride 101 mEq/L (98-107) 03/30/17 07:15 Carbon Dioxide 29.1 mEq/L (21.0-31.0) 03/30/17 07:15 Anion Gap 7.9 (7.0-16.0) 03/30/17 07:15 BUN 17 mg/dL (7-25) 03/30/17 07:15 Creatinine 0.6 mg/dL (0.7-1.3) L 03/30/17 07:15 Est GFR ( Amer) TNP 03/30/17 07:15 Est GFR (Non-Af Amer) TNP 03/30/17 07:15 BUN/Creatinine Ratio 28.3 03/30/17 07:15 Glucose 85 mg/dL (70-105) 03/30/17 07:15 POC Glucose 170 MG/DL (70 - 105) H 03/25/17 21:03 Calcium 9.2 mg/dL (8.6-10.3) 03/30/17 07:15 Total Bilirubin 0.5 mg/dL (0.3-1.0) 03/26/17 07:05 AST 14 U/L (13-39) 03/26/17 07:05 ALT 11 U/L (7-52) 03/26/17 07:05 Alkaline Phosphatase 94 U/L (34-104) 03/26/17 07:05 Total Protein 7.0 gm/dL (6.0-8.3) 03/26/17 07:05 Albumin 4.2 gm/dL (4.2-5.5) 03/26/17 07:05 Globulin 2.8 gm/dL 03/26/17 07:05 Albumin/Globulin Ratio 1.5 (1.0-1.8) 03/26/17 07:05 - Physical Exam Vitals and I&O: Vital Signs Temp 98.2 F 04/04/17 06:36 Pulse 74 04/04/17 08:14 Resp 18 04/04/17 08:15 BP 132/76 04/04/17 06:36 Pulse Ox 95 04/04/17 08:14 Intake & Output 04/03/17 04/04/17 04/04/17 18:59 06:59 18:59 Intake Total 900 120 Balance 900 120 Intake: Oral 900 120 Other: # Voids 2 3 Active Medications: Current Medications Acetaminophen (Tylenol) 650 mg PO Q6H PRN PRN Reason: Mild Pain/Headache/T above 101 Stop: 05/24/17 20:40 Al Hydrox/Mg Hydrox/Simethicone (Maalox) 30 ml PO Q6H PRN PRN Reason: Dyspepsia Stop: 05/24/17 20:40 Albuterol/Ipratropium (Duoneb Neb) 3 ml HHN Q4H PRN PRN Reason: Wheezing Stop: 05/24/17 21:28 Alprazolam (Xanax) 0.5 mg PO Q8HR [facility] PRN Reason: Protocol Stop: 05/25/17 04:59 Last Admin: 04/04/17 05:07 Dose: 0.5 mg Aspirin (Aspirin Chewable) 81 mg PO DAILY [facility] Stop: 05/25/17 08:59 Last Admin: 04/04/17 08:41 Dose: 81 mg Benztropine Mesylate (Cogentin) 0.5 mg PO DAILY [facility] Stop: 05/25/17 08:59 Last Admin: 04/04/17 08:42 Dose: 0.5 mg Citalopram Hydrobromide (Celexa) 20 mg PO DAILY [facility] PRN Reason: Protocol Stop: 05/25/17 08:59 Last Admin: 04/04/17 08:42 Dose: 20 mg Docusate Sodium (Colace) 200 mg PO DAILY [facility] Stop: 05/25/17 08:59 Last Admin: 04/04/17 08:41 Dose: 200 mg Lorazepam (Ativan) 1 mg PO Q6HR PRN; Protocol PRN Reason: Agitation Stop: 06/02/17 07:55 Last Admin: 04/03/17 16:03 Dose: 1 mg Magnesium Hydroxide (Milk Of Magnesia) 30 ml PO HS PRN PRN Reason: Constipation Stop: 05/24/17 20:40 Metoclopramide HCl (Reglan) 5 mg PO Q12HR [facility] Stop: 05/24/17 20:59 Last Admin: 04/03/17 20:35 Dose: 5 mg Pantoprazole Sodium (Protonix) 40 mg PO QAM [facility] Stop: 05/25/17 08:59 Last Admin: 04/04/17 08:41 Dose: 40 mg Quetiapine Fumarate (Seroquel) 100 mg PO DAILY [facility] PRN Reason: Protocol Stop: 05/31/17 08:59 Last Admin: 04/04/17 08:41 Dose: 100 mg Quetiapine Fumarate (Seroquel) 300 mg PO HS [facility] Stop: 05/31/17 20:59 Last Admin: 04/03/17 20:37 Dose: 300 mg Zolpidem Tartrate (Ambien) 5 mg PO HS PRN PRN Reason: Insomnia Stop: 06/02/17 07:57 General: demented, obese HEENT: NC/AT, PERRLA, EOMI, anicteric sclerae, throat clear Neck: Supple, No JVD, No thyromegaly, +2 carotid pulse wo bruit, No LAD Lungs: CTAB Cardiovascular: RRR, Normal S1, Normal S2, without murmur Abdomen: soft, non-tender, non-distended Extremities: clear Neurological: unable to follow command Internal Medicine Assmt/Plan - Assessment Assessment: 1.HTN. 2.GERD. 3.DEMENTIA. - Plan Plan: CONTINUE ON CURRENT MEDICATION AND DIET. Nutritional Asmnt/Malnutr-PDOC - Dietary Evaluation Malnutrition Findings (Please click <Entered> for more info): Nutritional Asmnt/Malnutrition Start: 03/30/17 16: 13 Text: Status: Complete Freq: Document 03/30/17 16:14 GSUN (Rec: 03/30/17 16:21 [email or web address] [email or web address]) Nutritional Asmnt/Malnutrition Patient General Information Nutritional Screening Moderate Risk Screening Diagnosis Unspecified psychosis, dementia moderate with psychotic features Pertinent Medical Hx/Surgical Hx Dementia, depression, GERD, DJD, obesity Subjective Information 77 year old male. Pt seen in wheelchair in rec room, asleep and unable to be woken up. Spoke to FIRE SPRINKLER SERVICE TECHNICIAN in rec room, FIRE SPRINKLER SERVICE TECHNICIAN reported pt has good appetite, no difficulties eating, denied nutritional concerns at this time. Pt appeared overweight, no muscle fat wasting noted. Avg PO intake 100% of meals since adm, meeting nutritional needs. Current Diet Order/ Nutrition Support [facility] soft chopped. Pertinent Medications Colace, Haldol, MOM, Reglan, Protonix, Seroquel Pertinent Labs Reviewed. Nutritional Hx/Data Height 1.78 m Height (Calculated Centimeters) 177.8 Current Weight (lbs) 92.986 kg Weight (Calculated Kilograms) 93.0 Weight (Calculated Grams) 14461.4 [place] Body Weight 166 Weight Status Overweight GI Symptoms Skin Integrity/Comment: Rajesh 17. Skin dryness. Current %PO Good (75-100%) Estimated Nutritional Goals Calories/Kcals/Kg IBW 166lb/75.5kg Kcals Calculated 1888-2265kcal (25-30kcal/kg) Protein Calculated 76g (1g/kg) Fluid: ml 1888-2265ml (1ml/kcal) Nutritional Problem 1. Problem Problem No nutritional problem at this time. Intervention/Recommendation Comments 1. Continue with current diet order. Avg PO intake is adequate. Expected Outcomes/Goals Expected Outcomes/Goals 1. PO intake continue to meet at least 75% of estimated nutritional needs.
--- NOTE | 2017-04-04 21:15 | Progress Notes ---
DATE: 04/04/2017 SUBJECTIVE: Chart reviewed and the patient interviewed. Also, discussed the patient's condition with the staff and reviewed records and labs. The patient continued to be confused and forgetful. The patient also said that, "I'm not hallucinating as much." He is in angry mood and he is still having labile affect. The patient also has poor hygiene and has still foul odor. He is also still refusing to shower and his appetite and his intake are poor. ASSESSMENT: The patient is still psychotic. TREATMENT PLAN: We will continue monitoring his behavior and his condition closely. Also, continue to work on his ineffective coping and his anger. JOB# [id number]
[2017-04-05] MEDS: Pantoprazole 40 mg EC Tab PO SCH (09:05)
[2017-04-05] MEDS: Aspirin 81mg Chewable Tab PO SCH (09:06)
--- NOTE | 2017-04-05 18:14 | Progress Notes ---
DATE: 04/05/2017 SUBJECTIVE: Chart reviewed and the patient interviewed. Also discussed the patient's condition with the staff and reviewed records and labs. The patient is still confused and is still easily agitated and easily irritable. Also, is still disheveled. The patient also is still having episodes of irritability and anger and still needs close monitoring. On the other hand today, the patient seems to be slightly sedated and slightly sleepy. ASSESSMENT: The patient is still confused and still has periods of agitation. TREATMENT PLAN: Continue to monitor his behavior and his condition closely. Also, because the patient seems to be slightly sedated this morning with decrease Seroquel to 50 mg in the morning and 300 mg at bedtime. Also, continue to work on his ineffective coping, as well as his poor impulse control. JOB# [id number]
--- NOTE | 2017-04-05 19:13 | Internal Medicine Prog Note ---
Internal Medicine Subjective - Subjective Service Date: 04/05/17 Patient seen and examined:: without staff Patient is:: awake, non-verbal, in bed, confused Per staff patient has:: no adverse event Internal Medicine Objective - Results Result Diagrams: 03/30/17 07:15 03/30/17 07:15 Recent Labs: Laboratory Last Values WBC 12.6 Th/cmm (4.8-10.8) H 03/30/17 07:15 RBC 5.32 Mil/cmm (3.80-5.80) 03/30/17 07:15 Hgb 15.5 gm/dL (12-16) 03/30/17 07:15 Hct 46.2 % (41.0-60) 03/30/17 07:15 MCV 86.8 fl (80-99) 03/30/17 07:15 MCH 29.1 pg (27.0-31.0) 03/30/17 07:15 MCHC Differential 33.5 pg (28.0-36.0) 03/30/17 07:15 RDW 14.0 % (11.5-20.0) 03/30/17 07:15 Plt Count 215 Th/cmm (150-400) 03/30/17 07:15 MPV 8.0 fl 03/30/17 07:15 Neutrophils % 38.8 % (40.0-80.0) L 03/30/17 07:15 Band Neutrophils % 2 % (0-10) 03/26/17 07:05 Lymphocytes % 45.2 % (20.0-50.0) 03/30/17 07:15 Monocytes % 6.6 % (2.0-10.0) 03/30/17 07:15 Eosinophils % 9.1 % (0.0-5.0) H 03/30/17 07:15 Basophils % 0.3 % (0.0-2.0) 03/30/17 07:15 Neutrophils (Manual) 67 % (40-80) 03/26/17 07:05 Lymphocytes 23 % (20-50) 03/26/17 07:05 Monocytes 5 % (2-10) 03/26/17 07:05 Eosinophils 3 % (0-5) 03/26/17 07:05 Sodium 134 mEq/L (136-145) L 03/30/17 07:15 Potassium 4.0 mEq/L (3.5-5.1) 03/30/17 07:15 Chloride 101 mEq/L (98-107) 03/30/17 07:15 Carbon Dioxide 29.1 mEq/L (21.0-31.0) 03/30/17 07:15 Anion Gap 7.9 (7.0-16.0) 03/30/17 07:15 BUN 17 mg/dL (7-25) 03/30/17 07:15 Creatinine 0.6 mg/dL (0.7-1.3) L 03/30/17 07:15 Est GFR ( Amer) TNP 03/30/17 07:15 Est GFR (Non-Af Amer) TNP 03/30/17 07:15 BUN/Creatinine Ratio 28.3 03/30/17 07:15 Glucose 85 mg/dL (70-105) 03/30/17 07:15 POC Glucose 170 MG/DL (70 - 105) H 03/25/17 21:03 Calcium 9.2 mg/dL (8.6-10.3) 03/30/17 07:15 Total Bilirubin 0.5 mg/dL (0.3-1.0) 03/26/17 07:05 AST 14 U/L (13-39) 03/26/17 07:05 ALT 11 U/L (7-52) 03/26/17 07:05 Alkaline Phosphatase 94 U/L (34-104) 03/26/17 07:05 Total Protein 7.0 gm/dL (6.0-8.3) 03/26/17 07:05 Albumin 4.2 gm/dL (4.2-5.5) 03/26/17 07:05 Globulin 2.8 gm/dL 03/26/17 07:05 Albumin/Globulin Ratio 1.5 (1.0-1.8) 03/26/17 07:05 - Physical Exam Vitals and I&O: Vital Signs Temp 97.8 F 04/05/17 14:00 Pulse 73 04/05/17 14:00 Resp 18 04/05/17 14:00 BP 117/62 04/05/17 14:00 Pulse Ox 100 04/05/17 14:00 Intake & Output 04/05/17 04/05/17 04/06/17 06:59 18:59 06:59 Intake Total 2200 Balance 2200 Intake: Oral 2200 Other: # Voids 4 4 # Bowel Movements 0 0 Active Medications: Current Medications Acetaminophen (Tylenol) 650 mg PO Q6H PRN PRN Reason: Mild Pain/Headache/T above 101 Stop: 05/24/17 20:40 Al Hydrox/Mg Hydrox/Simethicone (Maalox) 30 ml PO Q6H PRN PRN Reason: Dyspepsia Stop: 05/24/17 20:40 Albuterol/Ipratropium (Duoneb Neb) 3 ml HHN Q4H PRN PRN Reason: Wheezing Stop: 05/24/17 21:28 Alprazolam (Xanax) 0.5 mg PO Q8HR [facility] PRN Reason: Protocol Stop: 05/25/17 04:59 Last Admin: 04/05/17 12:44 Dose: 0.5 mg Aspirin (Aspirin Chewable) 81 mg PO DAILY [facility] Stop: 05/25/17 08:59 Last Admin: 04/05/17 09:06 Dose: 81 mg Benztropine Mesylate (Cogentin) 0.5 mg PO DAILY [facility] Stop: 05/25/17 08:59 Last Admin: 04/05/17 09:07 Dose: 0.5 mg Citalopram Hydrobromide (Celexa) 20 mg PO DAILY [facility] PRN Reason: Protocol Stop: 05/25/17 08:59 Last Admin: 04/05/17 09:06 Dose: 20 mg Docusate Sodium (Colace) 200 mg PO DAILY [facility] Stop: 05/25/17 08:59 Last Admin: 04/05/17 09:08 Dose: Not Given Lorazepam (Ativan) 1 mg PO Q6HR PRN; Protocol PRN Reason: Agitation Stop: 06/02/17 07:55 Last Admin: 04/05/17 15:16 Dose: 1 mg Magnesium Hydroxide (Milk Of Magnesia) 30 ml PO HS PRN PRN Reason: Constipation Stop: 05/24/17 20:40 Metoclopramide HCl (Reglan) 5 mg PO Q12HR [facility] Stop: 05/24/17 20:59 Last Admin: 04/05/17 09:08 Dose: Not Given Pantoprazole Sodium (Protonix) 40 mg PO QAM [facility] Stop: 05/25/17 08:59 Last Admin: 04/05/17 09:05 Dose: 40 mg Quetiapine Fumarate (Seroquel) 300 mg PO HS [facility] Stop: 05/31/17 20:59 Last Admin: 04/04/17 20:56 Dose: 300 mg Quetiapine Fumarate (Seroquel) 50 mg PO DAILY [facility] PRN Reason: Protocol Stop: 05/31/17 08:59 Zolpidem Tartrate (Ambien) 5 mg PO HS PRN PRN Reason: Insomnia Stop: 06/02/17 07:57 General: demented, obese HEENT: NC/AT, PERRLA, EOMI, anicteric sclerae, throat clear Neck: Supple, No JVD, No thyromegaly, +2 carotid pulse wo bruit, No LAD Lungs: CTAB Cardiovascular: RRR, Normal S1, Normal S2, without murmur Abdomen: soft, non-tender, non-distended Extremities: clear Neurological: unable to follow command Internal Medicine Assmt/Plan - Assessment Assessment: 1.HTN. 2.GERD. 3.DEMENTIA. - Plan Plan: CONTINUE ON CURRENT MEDICATION AND DIET. Nutritional Asmnt/Malnutr-PDOC - Dietary Evaluation Malnutrition Findings (Please click <Entered> for more info): Nutritional Asmnt/Malnutrition Start: 03/30/17 16: 13 Text: Status: Complete Freq: Document 03/30/17 16:14 GSUN (Rec: 03/30/17 16:21 [email or web address] [email or web address]) Nutritional Asmnt/Malnutrition Patient General Information Nutritional Screening Moderate Risk Screening Diagnosis Unspecified psychosis, dementia moderate with psychotic features Pertinent Medical Hx/Surgical Hx Dementia, depression, GERD, DJD, obesity Subjective Information 77 year old male. Pt seen in wheelchair in rec room, asleep and unable to be woken up. Spoke to LICENSED MORTICIAN in rec room, LICENSED MORTICIAN reported pt has good appetite, no difficulties eating, denied nutritional concerns at this time. Pt appeared overweight, no muscle fat wasting noted. Avg PO intake 100% of meals since adm, meeting nutritional needs. Current Diet Order/ Nutrition Support [facility] soft chopped. Pertinent Medications Colace, Haldol, MOM, Reglan, Protonix, Seroquel Pertinent Labs Reviewed. Nutritional Hx/Data Height 1.78 m Height (Calculated Centimeters) 177.8 Current Weight (lbs) 92.986 kg Weight (Calculated Kilograms) 93.0 Weight (Calculated Grams) 88562.4 [place] Body Weight 166 Weight Status Overweight GI Symptoms Skin Integrity/Comment: Rajesh 17. Skin dryness. Current %PO Good (75-100%) Estimated Nutritional Goals Calories/Kcals/Kg IBW 166lb/75.5kg Kcals Calculated 1888-2265kcal (25-30kcal/kg) Protein Calculated 76g (1g/kg) Fluid: ml 1888-2265ml (1ml/kcal) Nutritional Problem 1. Problem Problem No nutritional problem at this time. Intervention/Recommendation Comments 1. Continue with current diet order. Avg PO intake is adequate. Expected Outcomes/Goals Expected Outcomes/Goals 1. PO intake continue to meet at least 75% of estimated nutritional needs.
[2017-04-06] MEDS: Pantoprazole 40 mg EC Tab PO SCH (09:12)
[2017-04-06] MEDS: Aspirin 81mg Chewable Tab PO SCH (09:12)
--- NOTE | 2017-04-06 18:58 | Progress Notes ---
DATE: 04/06/2017 COVERING FOR: Dr. Plummer. SUBJECTIVE: The patient seen, chart reviewed, discussed with staff. The patient in the hospital, aggressive, agitated, hitting staff and residents in facility, believes that his name is being called on TV, on [id number]. The patient is not interactive, not responding to any questions, currently in a wheelchair, head on the desk. The staff noting he remains symptomatic, not safe for a lower level of care at this time. Dr. Plummer saw the patient over the weekend, noted that he remained confused, agitated, irritable, impulsive, unpredictable. ASSESSMENT: The patient remains confused, periods of agitation, impulsivity, not safe for a lower level of care, given recent dose, adjustments of medications. We will continue to monitor. JOB# [id number]
--- NOTE | 2017-04-06 22:00 | Internal Medicine Prog Note ---
Internal Medicine Subjective - Subjective Service Date: 04/06/17 Patient seen and examined:: without staff Patient is:: awake, non-verbal, in bed, confused Per staff patient has:: no adverse event Internal Medicine Objective - Results Result Diagrams: 03/30/17 07:15 03/30/17 07:15 Recent Labs: Laboratory Last Values WBC 12.6 Th/cmm (4.8-10.8) H 03/30/17 07:15 RBC 5.32 Mil/cmm (3.80-5.80) 03/30/17 07:15 Hgb 15.5 gm/dL (12-16) 03/30/17 07:15 Hct 46.2 % (41.0-60) 03/30/17 07:15 MCV 86.8 fl (80-99) 03/30/17 07:15 MCH 29.1 pg (27.0-31.0) 03/30/17 07:15 MCHC Differential 33.5 pg (28.0-36.0) 03/30/17 07:15 RDW 14.0 % (11.5-20.0) 03/30/17 07:15 Plt Count 215 Th/cmm (150-400) 03/30/17 07:15 MPV 8.0 fl 03/30/17 07:15 Neutrophils % 38.8 % (40.0-80.0) L 03/30/17 07:15 Band Neutrophils % 2 % (0-10) 03/26/17 07:05 Lymphocytes % 45.2 % (20.0-50.0) 03/30/17 07:15 Monocytes % 6.6 % (2.0-10.0) 03/30/17 07:15 Eosinophils % 9.1 % (0.0-5.0) H 03/30/17 07:15 Basophils % 0.3 % (0.0-2.0) 03/30/17 07:15 Neutrophils (Manual) 67 % (40-80) 03/26/17 07:05 Lymphocytes 23 % (20-50) 03/26/17 07:05 Monocytes 5 % (2-10) 03/26/17 07:05 Eosinophils 3 % (0-5) 03/26/17 07:05 Sodium 134 mEq/L (136-145) L 03/30/17 07:15 Potassium 4.0 mEq/L (3.5-5.1) 03/30/17 07:15 Chloride 101 mEq/L (98-107) 03/30/17 07:15 Carbon Dioxide 29.1 mEq/L (21.0-31.0) 03/30/17 07:15 Anion Gap 7.9 (7.0-16.0) 03/30/17 07:15 BUN 17 mg/dL (7-25) 03/30/17 07:15 Creatinine 0.6 mg/dL (0.7-1.3) L 03/30/17 07:15 Est GFR ( Amer) TNP 03/30/17 07:15 Est GFR (Non-Af Amer) TNP 03/30/17 07:15 BUN/Creatinine Ratio 28.3 03/30/17 07:15 Glucose 85 mg/dL (70-105) 03/30/17 07:15 POC Glucose 170 MG/DL (70 - 105) H 03/25/17 21:03 Calcium 9.2 mg/dL (8.6-10.3) 03/30/17 07:15 Total Bilirubin 0.5 mg/dL (0.3-1.0) 03/26/17 07:05 AST 14 U/L (13-39) 03/26/17 07:05 ALT 11 U/L (7-52) 03/26/17 07:05 Alkaline Phosphatase 94 U/L (34-104) 03/26/17 07:05 Total Protein 7.0 gm/dL (6.0-8.3) 03/26/17 07:05 Albumin 4.2 gm/dL (4.2-5.5) 03/26/17 07:05 Globulin 2.8 gm/dL 03/26/17 07:05 Albumin/Globulin Ratio 1.5 (1.0-1.8) 03/26/17 07:05 - Physical Exam Vitals and I&O: Vital Signs Temp 97.8 F 04/06/17 20:23 Pulse 81 04/06/17 20:23 Resp 20 04/06/17 20:23 BP 115/73 04/06/17 20:23 Pulse Ox 98 04/06/17 20:23 Intake & Output 04/06/17 04/06/17 04/07/17 06:59 18:59 06:59 Intake Total 180 900 240 Balance 180 900 240 Intake: Oral 180 900 240 Other: # Voids 3 4 1 # Bowel Movements 0 0 Active Medications: Current Medications Acetaminophen (Tylenol) 650 mg PO Q6H PRN PRN Reason: Mild Pain/Headache/T above 101 Stop: 05/24/17 20:40 Al Hydrox/Mg Hydrox/Simethicone (Maalox) 30 ml PO Q6H PRN PRN Reason: Dyspepsia Stop: 05/24/17 20:40 Albuterol/Ipratropium (Duoneb Neb) 3 ml HHN Q4H PRN PRN Reason: Wheezing Stop: 05/24/17 21:28 Alprazolam (Xanax) 0.5 mg PO Q8HR [facility] PRN Reason: Protocol Stop: 05/25/17 04:59 Last Admin: 04/06/17 20:33 Dose: 0.5 mg Aspirin (Aspirin Chewable) 81 mg PO DAILY [facility] Stop: 05/25/17 08:59 Last Admin: 04/06/17 09:12 Dose: 81 mg Benztropine Mesylate (Cogentin) 0.5 mg PO DAILY [facility] Stop: 05/25/17 08:59 Last Admin: 04/06/17 09:13 Dose: 0.5 mg Citalopram Hydrobromide (Celexa) 20 mg PO DAILY [facility] PRN Reason: Protocol Stop: 05/25/17 08:59 Last Admin: 04/06/17 09:12 Dose: 20 mg Docusate Sodium (Colace) 200 mg PO DAILY [facility] Stop: 05/25/17 08:59 Last Admin: 04/06/17 09:12 Dose: 200 mg Lorazepam (Ativan) 1 mg PO Q6HR PRN; Protocol PRN Reason: Agitation Stop: 06/02/17 07:55 Last Admin: 04/05/17 15:16 Dose: 1 mg Magnesium Hydroxide (Milk Of Magnesia) 30 ml PO HS PRN PRN Reason: Constipation Stop: 05/24/17 20:40 Metoclopramide HCl (Reglan) 5 mg PO Q12HR [facility] Stop: 05/24/17 20:59 Last Admin: 04/06/17 20:31 Dose: 5 mg Pantoprazole Sodium (Protonix) 40 mg PO QAM [facility] Stop: 05/25/17 08:59 Last Admin: 04/06/17 09:12 Dose: 40 mg Quetiapine Fumarate (Seroquel) 300 mg PO HS [facility] Stop: 05/31/17 20:59 Last Admin: 04/06/17 20:32 Dose: 300 mg Quetiapine Fumarate (Seroquel) 50 mg PO DAILY [facility] PRN Reason: Protocol Stop: 05/31/17 08:59 Last Admin: 04/06/17 09:13 Dose: 50 mg Zolpidem Tartrate (Ambien) 5 mg PO HS PRN PRN Reason: Insomnia Stop: 06/02/17 07:57 Last Admin: 04/06/17 20:34 Dose: 5 mg General: demented, obese HEENT: NC/AT, PERRLA, EOMI, anicteric sclerae, throat clear Neck: Supple, No JVD, No thyromegaly, +2 carotid pulse wo bruit, No LAD Lungs: CTAB Cardiovascular: RRR, Normal S1, Normal S2, without murmur Abdomen: soft, non-tender, non-distended Extremities: clear Neurological: unable to follow command Internal Medicine Assmt/Plan - Assessment Assessment: 1.HTN. 2.GERD. 3.DEMENTIA. - Plan Plan: CONTINUE ON CURRENT MEDICATION AND DIET. Nutritional Asmnt/Malnutr-PDOC - Dietary Evaluation Malnutrition Findings (Please click <Entered> for more info): Nutritional Asmnt/Malnutrition Start: 03/30/17 16: 13 Text: Status: Complete Freq: Document 03/30/17 16:14 GSUN (Rec: 03/30/17 16:21 [email or web address] [email or web address]) Nutritional Asmnt/Malnutrition Patient General Information Nutritional Screening Moderate Risk Screening Diagnosis Unspecified psychosis, dementia moderate with psychotic features Pertinent Medical Hx/Surgical Hx Dementia, depression, GERD, DJD, obesity Subjective Information 77 year old male. Pt seen in wheelchair in rec room, asleep and unable to be woken up. Spoke to DESIGN TECH in rec room, DESIGN TECH reported pt has good appetite, no difficulties eating, denied nutritional concerns at this time. Pt appeared overweight, no muscle fat wasting noted. Avg PO intake 100% of meals since adm, meeting nutritional needs. Current Diet Order/ Nutrition Support [facility] soft chopped. Pertinent Medications Colace, Haldol, MOM, Reglan, Protonix, Seroquel Pertinent Labs Reviewed. Nutritional Hx/Data Height 1.78 m Height (Calculated Centimeters) 177.8 Current Weight (lbs) 92.986 kg Weight (Calculated Kilograms) 93.0 Weight (Calculated Grams) 69338.4 [place] Weight 166 Weight Status Overweight GI Symptoms Skin Integrity/Comment: Rajesh 17. Skin dryness. Current %PO Good (75-100%) Estimated Nutritional Goals Calories/Kcals/Kg IBW 166lb/75.5kg Kcals Calculated 1888-2265kcal (25-30kcal/kg) Protein Calculated 76g (1g/kg) Fluid: ml 1888-2265ml (1ml/kcal) Nutritional Problem 1. Problem Problem No nutritional problem at this time. Intervention/Recommendation Comments 1. Continue with current diet order. Avg PO intake is adequate. Expected Outcomes/Goals Expected Outcomes/Goals 1. PO intake continue to meet at least 75% of estimated nutritional needs.
[2017-04-07] MEDS: Pantoprazole 40 mg EC Tab PO SCH (08:39)
[2017-04-07] MEDS: Aspirin 81mg Chewable Tab PO SCH (08:40)
--- NOTE | 2017-04-07 11:25 | Internal Medicine Prog Note ---
Internal Medicine Subjective - Subjective Service Date: 04/07/17 Patient seen and examined:: without staff Patient is:: awake, non-verbal, in bed, confused Per staff patient has:: no adverse event Internal Medicine Objective - Results Result Diagrams: 03/30/17 07:15 03/30/17 07:15 Recent Labs: Laboratory Last Values WBC 12.6 Th/cmm (4.8-10.8) H 03/30/17 07:15 RBC 5.32 Mil/cmm (3.80-5.80) 03/30/17 07:15 Hgb 15.5 gm/dL (12-16) 03/30/17 07:15 Hct 46.2 % (41.0-60) 03/30/17 07:15 MCV 86.8 fl (80-99) 03/30/17 07:15 MCH 29.1 pg (27.0-31.0) 03/30/17 07:15 MCHC Differential 33.5 pg (28.0-36.0) 03/30/17 07:15 RDW 14.0 % (11.5-20.0) 03/30/17 07:15 Plt Count 215 Th/cmm (150-400) 03/30/17 07:15 MPV 8.0 fl 03/30/17 07:15 Neutrophils % 38.8 % (40.0-80.0) L 03/30/17 07:15 Band Neutrophils % 2 % (0-10) 03/26/17 07:05 Lymphocytes % 45.2 % (20.0-50.0) 03/30/17 07:15 Monocytes % 6.6 % (2.0-10.0) 03/30/17 07:15 Eosinophils % 9.1 % (0.0-5.0) H 03/30/17 07:15 Basophils % 0.3 % (0.0-2.0) 03/30/17 07:15 Neutrophils (Manual) 67 % (40-80) 03/26/17 07:05 Lymphocytes 23 % (20-50) 03/26/17 07:05 Monocytes 5 % (2-10) 03/26/17 07:05 Eosinophils 3 % (0-5) 03/26/17 07:05 Sodium 134 mEq/L (136-145) L 03/30/17 07:15 Potassium 4.0 mEq/L (3.5-5.1) 03/30/17 07:15 Chloride 101 mEq/L (98-107) 03/30/17 07:15 Carbon Dioxide 29.1 mEq/L (21.0-31.0) 03/30/17 07:15 Anion Gap 7.9 (7.0-16.0) 03/30/17 07:15 BUN 17 mg/dL (7-25) 03/30/17 07:15 Creatinine 0.6 mg/dL (0.7-1.3) L 03/30/17 07:15 Est GFR ( Amer) TNP 03/30/17 07:15 Est GFR (Non-Af Amer) TNP 03/30/17 07:15 BUN/Creatinine Ratio 28.3 03/30/17 07:15 Glucose 85 mg/dL (70-105) 03/30/17 07:15 POC Glucose 170 MG/DL (70 - 105) H 03/25/17 21:03 Calcium 9.2 mg/dL (8.6-10.3) 03/30/17 07:15 Total Bilirubin 0.5 mg/dL (0.3-1.0) 03/26/17 07:05 AST 14 U/L (13-39) 03/26/17 07:05 ALT 11 U/L (7-52) 03/26/17 07:05 Alkaline Phosphatase 94 U/L (34-104) 03/26/17 07:05 Total Protein 7.0 gm/dL (6.0-8.3) 03/26/17 07:05 Albumin 4.2 gm/dL (4.2-5.5) 03/26/17 07:05 Globulin 2.8 gm/dL 03/26/17 07:05 Albumin/Globulin Ratio 1.5 (1.0-1.8) 03/26/17 07:05 - Physical Exam Vitals and I&O: Vital Signs Temp 98.0 F 04/07/17 05:59 Pulse 62 04/07/17 10:50 Resp 19 04/07/17 10:50 BP 123/78 04/07/17 05:59 Pulse Ox 95 04/07/17 05:59 Intake & Output 04/06/17 04/07/17 04/07/17 18:59 06:59 18:59 Intake Total 900 420 Balance 900 420 Intake: Oral 900 420 Other: # Voids 4 2 # Bowel Movements 0 0 Active Medications: Current Medications Acetaminophen (Tylenol) 650 mg PO Q6H PRN PRN Reason: Mild Pain/Headache/T above 101 Stop: 05/24/17 20:40 Al Hydrox/Mg Hydrox/Simethicone (Maalox) 30 ml PO Q6H PRN PRN Reason: Dyspepsia Stop: 05/24/17 20:40 Albuterol/Ipratropium (Duoneb Neb) 3 ml HHN Q4H PRN PRN Reason: Wheezing Stop: 05/24/17 21:28 Alprazolam (Xanax) 0.5 mg PO Q8HR BROOK PRN Reason: Protocol Stop: 05/25/17 04:59 Last Admin: 04/07/17 09:32 Dose: Not Given Aspirin (Aspirin Chewable) 81 mg PO DAILY BROOK Stop: 05/25/17 08:59 Last Admin: 04/07/17 08:40 Dose: 81 mg Benztropine Mesylate (Cogentin) 0.5 mg PO DAILY BROOK Stop: 05/25/17 08:59 Last Admin: 04/07/17 08:40 Dose: 0.5 mg Citalopram Hydrobromide (Celexa) 20 mg PO DAILY BROOK PRN Reason: Protocol Stop: 05/25/17 08:59 Last Admin: 04/07/17 08:39 Dose: 20 mg Docusate Sodium (Colace) 200 mg PO DAILY BROOK Stop: 05/25/17 08:59 Last Admin: 04/07/17 08:39 Dose: 200 mg Lorazepam (Ativan) 1 mg PO Q6HR PRN; Protocol PRN Reason: Agitation Stop: 06/02/17 07:55 Last Admin: 04/05/17 15:16 Dose: 1 mg Magnesium Hydroxide (Milk Of Magnesia) 30 ml PO HS PRN PRN Reason: Constipation Stop: 05/24/17 20:40 Metoclopramide HCl (Reglan) 5 mg PO Q12HR BROOK Stop: 05/24/17 20:59 Last Admin: 04/07/17 08:39 Dose: 5 mg Pantoprazole Sodium (Protonix) 40 mg PO QAM BROOK Stop: 05/25/17 08:59 Last Admin: 04/07/17 08:39 Dose: 40 mg Quetiapine Fumarate (Seroquel) 300 mg PO HS BROOK Stop: 05/31/17 20:59 Last Admin: 04/06/17 20:32 Dose: 300 mg Quetiapine Fumarate (Seroquel) 50 mg PO DAILY BROOK PRN Reason: Protocol Stop: 05/31/17 08:59 Last Admin: 04/07/17 08:40 Dose: 50 mg Zolpidem Tartrate (Ambien) 5 mg PO HS PRN PRN Reason: Insomnia Stop: 06/02/17 07:57 Last Admin: 04/06/17 20:34 Dose: 5 mg General: demented, obese HEENT: NC/AT, PERRLA, EOMI, anicteric sclerae, throat clear Neck: Supple, No JVD, No thyromegaly, +2 carotid pulse wo bruit, No LAD Lungs: CTAB Cardiovascular: RRR, Normal S1, Normal S2, without murmur Abdomen: soft, non-tender, non-distended Extremities: clear Neurological: unable to follow command Internal Medicine Assmt/Plan - Assessment Assessment: 1.HTN. 2.GERD. 3.DEMENTIA. - Plan Plan: CONTINUE ON CURRENT MEDICATION AND DIET. Nutritional Asmnt/Malnutr-PDOC - Dietary Evaluation Malnutrition Findings (Please click <Entered> for more info): Nutritional Asmnt/Malnutrition Start: 03/30/17 16: 13 Text: Status: Complete Freq: Document 03/30/17 16:14 GSUN (Rec: 03/30/17 16:21 [email or web address] Nutritional Asmnt/Malnutrition Patient General Information Nutritional Screening Moderate Risk Screening Diagnosis Unspecified psychosis, dementia moderate with psychotic features Pertinent Medical Hx/Surgical Hx Dementia, depression, GERD, DJD, obesity Subjective Information 77 year old male. Pt seen in wheelchair in rec room, asleep and unable to be woken up. Spoke to ENGINE RESEARCH ENGINEER in rec room, ENGINE RESEARCH ENGINEER reported pt has good appetite, no difficulties eating, denied nutritional concerns at this time. Pt appeared overweight, no muscle fat wasting noted. Avg PO intake 100% of meals since adm, meeting nutritional needs. Current Diet Order/ Nutrition Support [facility] soft chopped. Pertinent Medications Colace, Haldol, MOM, Reglan, Protonix, Seroquel Pertinent Labs Reviewed. Nutritional Hx/Data Height 1.78 m Height (Calculated Centimeters) 177.8 Current Weight (lbs) 92.986 kg Weight (Calculated Kilograms) 93.0 Weight (Calculated Grams) 96373.4 [place] Body Weight 166 Weight Status Overweight GI Symptoms Skin Integrity/Comment: Rajesh 17. Skin dryness. Current %PO Good (75-100%) Estimated Nutritional Goals Calories/Kcals/Kg IBW 166lb/75.5kg Kcals Calculated 1888-2265kcal (25-30kcal/kg) Protein Calculated 76g (1g/kg) Fluid: ml 1888-2265ml (1ml/kcal) Nutritional Problem 1. Problem Problem No nutritional problem at this time. Intervention/Recommendation Comments 1. Continue with current diet order. Avg PO intake is adequate. Expected Outcomes/Goals Expected Outcomes/Goals 1. PO intake continue to meet at least 75% of estimated nutritional needs.
--- NOTE | 2017-04-07 19:44 | Progress Notes ---
DATE: 04/07/2017 SUBJECTIVE: The patient was seen, chart reviewed, and discussed with staff. The patient is currently in the hospital, voices paranoia, delusions, complaining of "voices," states medications help, fixated on leaving, demanding to leave the hospital, still however attesting to psychotic symptoms, unclear if he has a place to go or where he is going to go for example. Sleeping well, eating well. There are concerns for grave disability at this time. The patient remains somewhat impulsive and unpredictable. ASSESSMENT: The patient remains confused. He has agitation, impulsivity, perseverative, still with hallucinations. PLAN: We will continue to monitor. The patient is with continued perceptual disturbances. Given his ongoing symptoms, he is not safe for discharge. We will titrate medications appropriately. [facility]# [id number]
[2017-04-08] MEDS: Aspirin 81mg Chewable Tab PO SCH (08:36)
[2017-04-08] MEDS: Pantoprazole 40 mg EC Tab PO SCH (08:36)
--- NOTE | 2017-04-08 20:27 | Internal Medicine Prog Note ---
Internal Medicine Subjective - Subjective Service Date: 04/08/17 Patient seen and examined:: without staff Patient is:: awake, non-verbal, in bed, confused Per staff patient has:: no adverse event Internal Medicine Objective - Results Result Diagrams: 03/30/17 07:15 03/30/17 07:15 Recent Labs: Laboratory Last Values WBC 12.6 Th/cmm (4.8-10.8) H 03/30/17 07:15 RBC 5.32 Mil/cmm (3.80-5.80) 03/30/17 07:15 Hgb 15.5 gm/dL (12-16) 03/30/17 07:15 Hct 46.2 % (41.0-60) 03/30/17 07:15 MCV 86.8 fl (80-99) 03/30/17 07:15 MCH 29.1 pg (27.0-31.0) 03/30/17 07:15 MCHC Differential 33.5 pg (28.0-36.0) 03/30/17 07:15 RDW 14.0 % (11.5-20.0) 03/30/17 07:15 Plt Count 215 Th/cmm (150-400) 03/30/17 07:15 MPV 8.0 fl 03/30/17 07:15 Neutrophils % 38.8 % (40.0-80.0) L 03/30/17 07:15 Band Neutrophils % 2 % (0-10) 03/26/17 07:05 Lymphocytes % 45.2 % (20.0-50.0) 03/30/17 07:15 Monocytes % 6.6 % (2.0-10.0) 03/30/17 07:15 Eosinophils % 9.1 % (0.0-5.0) H 03/30/17 07:15 Basophils % 0.3 % (0.0-2.0) 03/30/17 07:15 Neutrophils (Manual) 67 % (40-80) 03/26/17 07:05 Lymphocytes 23 % (20-50) 03/26/17 07:05 Monocytes 5 % (2-10) 03/26/17 07:05 Eosinophils 3 % (0-5) 03/26/17 07:05 Sodium 134 mEq/L (136-145) L 03/30/17 07:15 Potassium 4.0 mEq/L (3.5-5.1) 03/30/17 07:15 Chloride 101 mEq/L (98-107) 03/30/17 07:15 Carbon Dioxide 29.1 mEq/L (21.0-31.0) 03/30/17 07:15 Anion Gap 7.9 (7.0-16.0) 03/30/17 07:15 BUN 17 mg/dL (7-25) 03/30/17 07:15 Creatinine 0.6 mg/dL (0.7-1.3) L 03/30/17 07:15 Est GFR ( Amer) TNP 03/30/17 07:15 Est GFR (Non-Af Amer) TNP 03/30/17 07:15 BUN/Creatinine Ratio 28.3 03/30/17 07:15 Glucose 85 mg/dL (70-105) 03/30/17 07:15 POC Glucose 92 MG/DL (70 - 105) 04/08/17 06:16 Calcium 9.2 mg/dL (8.6-10.3) 03/30/17 07:15 Total Bilirubin 0.5 mg/dL (0.3-1.0) 03/26/17 07:05 AST 14 U/L (13-39) 03/26/17 07:05 ALT 11 U/L (7-52) 03/26/17 07:05 Alkaline Phosphatase 94 U/L (34-104) 03/26/17 07:05 Total Protein 7.0 gm/dL (6.0-8.3) 03/26/17 07:05 Albumin 4.2 gm/dL (4.2-5.5) 03/26/17 07:05 Globulin 2.8 gm/dL 03/26/17 07:05 Albumin/Globulin Ratio 1.5 (1.0-1.8) 03/26/17 07:05 - Physical Exam Vitals and I&O: Vital Signs Temp 98.2 F 04/08/17 20:00 Pulse 75 04/08/17 20:00 Resp 20 04/08/17 20:00 BP 128/78 04/08/17 20:00 Pulse Ox 95 04/08/17 20:00 Intake & Output 04/08/17 04/08/17 04/09/17 06:59 18:59 06:59 Intake Total 240 1800 Balance 240 1800 Intake: Oral 240 1800 Other: # Voids 3 4 # Bowel Movements 0 0 Active Medications: Current Medications Acetaminophen (Tylenol) 650 mg PO Q6H PRN PRN Reason: Mild Pain/Headache/T above 101 Stop: 05/24/17 20:40 Al Hydrox/Mg Hydrox/Simethicone (Maalox) 30 ml PO Q6H PRN PRN Reason: Dyspepsia Stop: 05/24/17 20:40 Albuterol/Ipratropium (Duoneb Neb) 3 ml HHN Q4H PRN PRN Reason: Wheezing Stop: 05/24/17 21:28 Alprazolam (Xanax) 0.5 mg PO Q8HR BROOK PRN Reason: Protocol Stop: 05/25/17 04:59 Last Admin: 04/08/17 12:54 Dose: 0.5 mg Aspirin (Aspirin Chewable) 81 mg PO DAILY BROOK Stop: 05/25/17 08:59 Last Admin: 04/08/17 08:36 Dose: 81 mg Benztropine Mesylate (Cogentin) 0.5 mg PO DAILY BROOK Stop: 05/25/17 08:59 Last Admin: 04/08/17 08:37 Dose: 0.5 mg Citalopram Hydrobromide (Celexa) 20 mg PO DAILY BROOK PRN Reason: Protocol Stop: 05/25/17 08:59 Last Admin: 04/08/17 08:37 Dose: 20 mg Docusate Sodium (Colace) 200 mg PO DAILY BROOK Stop: 05/25/17 08:59 Last Admin: 04/08/17 08:36 Dose: 200 mg Lorazepam (Ativan) 1 mg PO Q6HR PRN; Protocol PRN Reason: Agitation Stop: 06/02/17 07:55 Last Admin: 04/08/17 12:53 Dose: 1 mg Magnesium Hydroxide (Milk Of Magnesia) 30 ml PO HS PRN PRN Reason: Constipation Stop: 05/24/17 20:40 Metoclopramide HCl (Reglan) 5 mg PO Q12HR BROOK Stop: 05/24/17 20:59 Last Admin: 04/08/17 08:36 Dose: 5 mg Pantoprazole Sodium (Protonix) 40 mg PO QAM BROOK Stop: 05/25/17 08:59 Last Admin: 04/08/17 08:36 Dose: 40 mg Quetiapine Fumarate (Seroquel) 50 mg PO DAILY BROOK PRN Reason: Protocol Stop: 05/31/17 08:59 Last Admin: 04/08/17 08:36 Dose: 50 mg Quetiapine Fumarate (Seroquel) 300 mg PO HS BROOK Stop: 05/31/17 20:59 Zolpidem Tartrate (Ambien) 5 mg PO HS PRN PRN Reason: Insomnia Stop: 06/02/17 07:57 Last Admin: 04/06/17 20:34 Dose: 5 mg General: demented, obese HEENT: NC/AT, PERRLA, EOMI, anicteric sclerae, throat clear Neck: Supple, No JVD, No thyromegaly, +2 carotid pulse wo bruit, No LAD Lungs: CTAB Cardiovascular: RRR, Normal S1, Normal S2, without murmur Abdomen: soft, non-tender, non-distended Extremities: clear Neurological: unable to follow command Internal Medicine Assmt/Plan - Assessment Assessment: 1.HTN. 2.GERD. 3.DEMENTIA. - Plan Plan: CONTINUE ON CURRENT MEDICATION AND DIET. Nutritional Asmnt/Malnutr-PDOC - Dietary Evaluation Malnutrition Findings (Please click <Entered> for more info): Nutritional Asmnt/Malnutrition Start: 03/30/17 16: 13 Text: Status: Complete Freq: Document 03/30/17 16:14 GSUN (Rec: 03/30/17 16:21 GSUN [email or web address]) Nutritional Asmnt/Malnutrition Patient General Information Nutritional Screening Moderate Risk Screening Diagnosis Unspecified psychosis, dementia moderate with psychotic features Pertinent Medical Hx/Surgical Hx Dementia, depression, GERD, DJD, obesity Subjective Information 77 year old male. Pt seen in wheelchair in rec room, asleep and unable to be woken up. Spoke to SILK PRINTER in rec room, SILK PRINTER reported pt has good appetite, no difficulties eating, denied nutritional concerns at this time. Pt appeared overweight, no muscle fat wasting noted. Avg PO intake 100% of meals since adm, meeting nutritional needs. Current Diet Order/ Nutrition Support [facility] soft chopped. Pertinent Medications Colace, Haldol, MOM, Reglan, Protonix, Seroquel Pertinent Labs Reviewed. Nutritional Hx/Data Height 1.78 m Height (Calculated Centimeters) 177.8 Current Weight (lbs) 92.986 kg Weight (Calculated Kilograms) 93.0 Weight (Calculated Grams) 28310.4 [place] Body Weight 166 Weight Status Overweight GI Symptoms Skin Integrity/Comment: Rajesh 17. Skin dryness. Current %PO Good (75-100%) Estimated Nutritional Goals Calories/Kcals/Kg IBW 166lb/75.5kg Kcals Calculated 1888-2265kcal (25-30kcal/kg) Protein Calculated 76g (1g/kg) Fluid: ml 1888-2265ml (1ml/kcal) Nutritional Problem 1. Problem Problem No nutritional problem at this time. Intervention/Recommendation Comments 1. Continue with current diet order. Avg PO intake is adequate. Expected Outcomes/Goals Expected Outcomes/Goals 1. PO intake continue to meet at least 75% of estimated nutritional needs.
--- NOTE | 2017-04-09 04:20 | Progress Notes ---
DATE: 04/08/2017 SUBJECTIVE: Chart reviewed and the patient interviewed. Also, discussed the patient's condition with the staff and reviewed records and labs. The patient's affect is slightly brighter and the patient seems to be slightly calmer, but he is still paranoid about people calling his name. The patient also is still easily agitated at times, but easier to redirect him. The patient also is having mood swings and is suspicious and is paranoid. Otherwise, the patient is compliant with taking his medications with no side effects of medications. ASSESSMENT: The patient is still psychotic and is still high risk, dangerous to self and others. TREATMENT PLAN: Continue monitoring his behavior and his condition closely. Also, continue to adjust psychotropic medications and followup. JOB# [id number]
[2017-04-09] MEDS: Aspirin 81mg Chewable Tab PO SCH (08:04)
[2017-04-09] MEDS: Pantoprazole 40 mg EC Tab PO SCH (08:04)
--- NOTE | 2017-04-09 10:24 | Discharge Summary ---
DATE OF DISCHARGE: 04/09/2017 FINAL DIAGNOSIS AND PRIMARY DIAGNOSIS: Unspecified psychosis. SECONDARY DIAGNOSIS: Dementia, moderate, with psychotic features. REASON FOR HOSPITALIZATION: The patient was admitted to the hospital because of increased delusion and paranoia and the patient was thinking that ____ is talking about him and was getting messages from radio and television. HOSPITAL COURSE: The patient was cooperative and was taking his medications, but continued to be delusional and paranoid. The patient also was disheveled. The patient also was not able to care for himself and he gets agitated and irritable mood at times and resisting care. The patient was given Seroquel. Gradually, the patient's affect was brighter. The patient was less agitated and less irritable. He also was interacting more. He also was compliant with taking his medications with no side effects of medications. The patient was discharged to SNF. Physical exam of the patient showed no major medical problems and the patient has no major medical problems while in the hospital. Also, blood workup showed no major abnormal labs. DISCHARGE PLAN: The patient discharged from the hospital with plans to continue his treatment as an outpatient. JOB# [id number]
--- NOTE | 2017-04-09 16:06 | Internal Medicine Prog Note ---
Internal Medicine Subjective - Subjective Service Date: 04/09/17 Patient seen and examined:: without staff Patient is:: awake, non-verbal, in bed, confused Per staff patient has:: no adverse event Internal Medicine Objective - Results Result Diagrams: 03/30/17 07:15 03/30/17 07:15 Recent Labs: Laboratory Last Values WBC 12.6 Th/cmm (4.8-10.8) H 03/30/17 07:15 RBC 5.32 Mil/cmm (3.80-5.80) 03/30/17 07:15 Hgb 15.5 gm/dL (12-16) 03/30/17 07:15 Hct 46.2 % (41.0-60) 03/30/17 07:15 MCV 86.8 fl (80-99) 03/30/17 07:15 MCH 29.1 pg (27.0-31.0) 03/30/17 07:15 MCHC Differential 33.5 pg (28.0-36.0) 03/30/17 07:15 RDW 14.0 % (11.5-20.0) 03/30/17 07:15 Plt Count 215 Th/cmm (150-400) 03/30/17 07:15 MPV 8.0 fl 03/30/17 07:15 Neutrophils % 38.8 % (40.0-80.0) L 03/30/17 07:15 Band Neutrophils % 2 % (0-10) 03/26/17 07:05 Lymphocytes % 45.2 % (20.0-50.0) 03/30/17 07:15 Monocytes % 6.6 % (2.0-10.0) 03/30/17 07:15 Eosinophils % 9.1 % (0.0-5.0) H 03/30/17 07:15 Basophils % 0.3 % (0.0-2.0) 03/30/17 07:15 Neutrophils (Manual) 67 % (40-80) 03/26/17 07:05 Lymphocytes 23 % (20-50) 03/26/17 07:05 Monocytes 5 % (2-10) 03/26/17 07:05 Eosinophils 3 % (0-5) 03/26/17 07:05 Sodium 134 mEq/L (136-145) L 03/30/17 07:15 Potassium 4.0 mEq/L (3.5-5.1) 03/30/17 07:15 Chloride 101 mEq/L (98-107) 03/30/17 07:15 Carbon Dioxide 29.1 mEq/L (21.0-31.0) 03/30/17 07:15 Anion Gap 7.9 (7.0-16.0) 03/30/17 07:15 BUN 17 mg/dL (7-25) 03/30/17 07:15 Creatinine 0.6 mg/dL (0.7-1.3) L 03/30/17 07:15 Est GFR ( Amer) TNP 03/30/17 07:15 Est GFR (Non-Af Amer) TNP 03/30/17 07:15 BUN/Creatinine Ratio 28.3 03/30/17 07:15 Glucose 85 mg/dL (70-105) 03/30/17 07:15 POC Glucose 92 MG/DL (70 - 105) 04/08/17 06:16 Calcium 9.2 mg/dL (8.6-10.3) 03/30/17 07:15 Total Bilirubin 0.5 mg/dL (0.3-1.0) 03/26/17 07:05 AST 14 U/L (13-39) 03/26/17 07:05 ALT 11 U/L (7-52) 03/26/17 07:05 Alkaline Phosphatase 94 U/L (34-104) 03/26/17 07:05 Total Protein 7.0 gm/dL (6.0-8.3) 03/26/17 07:05 Albumin 4.2 gm/dL (4.2-5.5) 03/26/17 07:05 Globulin 2.8 gm/dL 03/26/17 07:05 Albumin/Globulin Ratio 1.5 (1.0-1.8) 03/26/17 07:05 - Physical Exam Vitals and I&O: Vital Signs Temp 97.1 F 04/09/17 06:26 Pulse 65 04/09/17 08:27 Resp 20 04/09/17 08:27 BP 105/60 04/09/17 06:26 Pulse Ox 97 04/09/17 08:27 Intake & Output 04/08/17 04/09/17 04/09/17 18:59 06:59 18:59 Intake Total 1800 120 Balance 1800 120 Intake: Oral 1800 120 Other: # Voids 4 3 # Bowel Movements 0 Active Medications: Current Medications Acetaminophen (Tylenol) 650 mg PO Q6H PRN PRN Reason: Mild Pain/Headache/T above 101 Stop: 05/24/17 20:40 Al Hydrox/Mg Hydrox/Simethicone (Maalox) 30 ml PO Q6H PRN PRN Reason: Dyspepsia Stop: 05/24/17 20:40 Albuterol/Ipratropium (Duoneb Neb) 3 ml HHN Q4H PRN PRN Reason: Wheezing Stop: 05/24/17 21:28 Alprazolam (Xanax) 0.5 mg PO Q8HR BROOK PRN Reason: Protocol Stop: 05/25/17 04:59 Last Admin: 04/09/17 13:51 Dose: Not Given Aspirin (Aspirin Chewable) 81 mg PO DAILY BROOK Stop: 05/25/17 08:59 Last Admin: 04/09/17 08:04 Dose: 81 mg Benztropine Mesylate (Cogentin) 0.5 mg PO DAILY BROOK Stop: 05/25/17 08:59 Last Admin: 04/09/17 08:04 Dose: 0.5 mg Citalopram Hydrobromide (Celexa) 20 mg PO DAILY BROOK PRN Reason: Protocol Stop: 05/25/17 08:59 Last Admin: 04/09/17 08:04 Dose: 20 mg Docusate Sodium (Colace) 200 mg PO DAILY BROOK Stop: 05/25/17 08:59 Last Admin: 04/09/17 08:04 Dose: 200 mg Lorazepam (Ativan) 1 mg PO Q6HR PRN; Protocol PRN Reason: Agitation Stop: 06/02/17 07:55 Last Admin: 04/09/17 10:17 Dose: 1 mg Magnesium Hydroxide (Milk Of Magnesia) 30 ml PO HS PRN PRN Reason: Constipation Stop: 05/24/17 20:40 Metoclopramide HCl (Reglan) 5 mg PO Q12HR BROOK Stop: 05/24/17 20:59 Last Admin: 04/09/17 08:05 Dose: 5 mg Pantoprazole Sodium (Protonix) 40 mg PO QAM BROOK Stop: 05/25/17 08:59 Last Admin: 04/09/17 08:04 Dose: 40 mg Quetiapine Fumarate (Seroquel) 50 mg PO DAILY BROOK PRN Reason: Protocol Stop: 05/31/17 08:59 Last Admin: 04/09/17 09:24 Dose: 50 mg Quetiapine Fumarate (Seroquel) 300 mg PO HS BROOK Stop: 05/31/17 20:59 Last Admin: 04/08/17 20:39 Dose: 300 mg Zolpidem Tartrate (Ambien) 5 mg PO HS PRN PRN Reason: Insomnia Stop: 06/02/17 07:57 Last Admin: 04/06/17 20:34 Dose: 5 mg General: demented, obese HEENT: NC/AT, PERRLA, EOMI, anicteric sclerae, throat clear Neck: Supple, No JVD, No thyromegaly, +2 carotid pulse wo bruit, No LAD Lungs: CTAB Cardiovascular: RRR, Normal S1, Normal S2, without murmur Abdomen: soft, non-tender, non-distended Extremities: clear Neurological: unable to follow command Internal Medicine Assmt/Plan - Assessment Assessment: 1.HTN. 2.GERD. 3.DEMENTIA. - Plan Plan: CONTINUE ON CURRENT MEDICATION AND DIET. Nutritional Asmnt/Malnutr-PDOC - Dietary Evaluation Malnutrition Findings (Please click <Entered> for more info): Nutritional Asmnt/Malnutrition Start: 03/30/17 16: 13 Text: Status: Complete Freq: Document 03/30/17 16:14 GSUN (Rec: 03/30/17 16:21 GSUN [email or web address]) Nutritional Asmnt/Malnutrition Patient General Information Nutritional Screening Moderate Risk Screening Diagnosis Unspecified psychosis, dementia moderate with psychotic features Pertinent Medical Hx/Surgical Hx Dementia, depression, GERD, DJD, obesity Subjective Information 77 year old male. Pt seen in wheelchair in rec room, asleep and unable to be woken up. Spoke to CORPORATE SAFETY MANAGER in rec room, CORPORATE SAFETY MANAGER reported pt has good appetite, no difficulties eating, denied nutritional concerns at this time. Pt appeared overweight, no muscle fat wasting noted. Avg PO intake 100% of meals since adm, meeting nutritional needs. [facility] Pertinent Medications Colace, Haldol, MOM, Reglan, Protonix, Seroquel Pertinent Labs Reviewed. Nutritional Hx/Data Height 1.78 m Height (Calculated Centimeters) 177.8 Current Weight (lbs) 92.986 kg Weight (Calculated Kilograms) 93.0 Weight (Calculated Grams) 92042.4 [place] Body Weight 166 Weight Status Overweight GI Symptoms Skin Integrity/Comment: Rajesh 17. Skin dryness. Current %PO Good (75-100%) Estimated Nutritional Goals Calories/Kcals/Kg IBW 166lb/75.5kg Kcals Calculated 1888-2265kcal (25-30kcal/kg) Protein Calculated 76g (1g/kg) Fluid: ml 1888-2265ml (1ml/kcal) Nutritional Problem 1. Problem Problem No nutritional problem at this time. Intervention/Recommendation Comments 1. Continue with current diet order. Avg PO intake is adequate. Expected Outcomes/Goals Expected Outcomes/Goals 1. PO intake continue to meet at least 75% of estimated nutritional needs.
[2017-04-10] MEDS: Pantoprazole 40 mg EC Tab PO SCH (08:10)
[2017-04-10] MEDS: Aspirin 81mg Chewable Tab PO SCH (08:11)
--- NOTE | 2017-04-10 13:58 | Internal Medicine Prog Note ---
Internal Medicine Subjective - Subjective Service Date: 04/10/17 Patient seen and examined:: without staff Patient is:: awake, non-verbal, in bed, confused Per staff patient has:: no adverse event Internal Medicine Objective - Results Result Diagrams: 03/30/17 07:15 03/30/17 07:15 Recent Labs: Laboratory Last Values WBC 12.6 Th/cmm (4.8-10.8) H 03/30/17 07:15 RBC 5.32 Mil/cmm (3.80-5.80) 03/30/17 07:15 Hgb 15.5 gm/dL (12-16) 03/30/17 07:15 Hct 46.2 % (41.0-60) 03/30/17 07:15 MCV 86.8 fl (80-99) 03/30/17 07:15 MCH 29.1 pg (27.0-31.0) 03/30/17 07:15 MCHC Differential 33.5 pg (28.0-36.0) 03/30/17 07:15 RDW 14.0 % (11.5-20.0) 03/30/17 07:15 Plt Count 215 Th/cmm (150-400) 03/30/17 07:15 MPV 8.0 fl 03/30/17 07:15 Neutrophils % 38.8 % (40.0-80.0) L 03/30/17 07:15 Band Neutrophils % 2 % (0-10) 03/26/17 07:05 Lymphocytes % 45.2 % (20.0-50.0) 03/30/17 07:15 Monocytes % 6.6 % (2.0-10.0) 03/30/17 07:15 Eosinophils % 9.1 % (0.0-5.0) H 03/30/17 07:15 Basophils % 0.3 % (0.0-2.0) 03/30/17 07:15 Neutrophils (Manual) 67 % (40-80) 03/26/17 07:05 Lymphocytes 23 % (20-50) 03/26/17 07:05 Monocytes 5 % (2-10) 03/26/17 07:05 Eosinophils 3 % (0-5) 03/26/17 07:05 Sodium 134 mEq/L (136-145) L 03/30/17 07:15 Potassium 4.0 mEq/L (3.5-5.1) 03/30/17 07:15 Chloride 101 mEq/L (98-107) 03/30/17 07:15 Carbon Dioxide 29.1 mEq/L (21.0-31.0) 03/30/17 07:15 Anion Gap 7.9 (7.0-16.0) 03/30/17 07:15 BUN 17 mg/dL (7-25) 03/30/17 07:15 Creatinine 0.6 mg/dL (0.7-1.3) L 03/30/17 07:15 Est GFR ( Amer) TNP 03/30/17 07:15 Est GFR (Non-Af Amer) TNP 03/30/17 07:15 BUN/Creatinine Ratio 28.3 03/30/17 07:15 Glucose 85 mg/dL (70-105) 03/30/17 07:15 POC Glucose 92 MG/DL (70 - 105) 04/08/17 06:16 Calcium 9.2 mg/dL (8.6-10.3) 03/30/17 07:15 Total Bilirubin 0.5 mg/dL (0.3-1.0) 03/26/17 07:05 AST 14 U/L (13-39) 03/26/17 07:05 ALT 11 U/L (7-52) 03/26/17 07:05 Alkaline Phosphatase 94 U/L (34-104) 03/26/17 07:05 Total Protein 7.0 gm/dL (6.0-8.3) 03/26/17 07:05 Albumin 4.2 gm/dL (4.2-5.5) 03/26/17 07:05 Globulin 2.8 gm/dL 03/26/17 07:05 Albumin/Globulin Ratio 1.5 (1.0-1.8) 03/26/17 07:05 - Physical Exam Vitals and I&O: Vital Signs Temp 98.1 F 04/10/17 06:28 Pulse 79 04/10/17 08:08 Resp 16 04/10/17 08:08 BP 119/66 04/10/17 06:28 Pulse Ox 94 04/10/17 08:08 Intake & Output 04/09/17 04/10/17 04/10/17 18:59 06:59 18:59 Intake Total 800 120 Balance 800 120 Intake: Oral 800 120 Other: # Voids 3 3 # Bowel Movements 1 Active Medications: Current Medications Acetaminophen (Tylenol) 650 mg PO Q6H PRN PRN Reason: Mild Pain/Headache/T above 101 Stop: 05/24/17 20:40 Al Hydrox/Mg Hydrox/Simethicone (Maalox) 30 ml PO Q6H PRN PRN Reason: Dyspepsia Stop: 05/24/17 20:40 Albuterol/Ipratropium (Duoneb Neb) 3 ml HHN Q4H PRN PRN Reason: Wheezing Stop: 05/24/17 21:28 Alprazolam (Xanax) 0.5 mg PO Q8HR [facility] PRN Reason: Protocol Stop: 05/25/17 04:59 Last Admin: 04/10/17 13:33 Dose: 0.5 mg Aspirin (Aspirin Chewable) 81 mg PO DAILY [facility] Stop: 05/25/17 08:59 Last Admin: 04/10/17 08:11 Dose: 81 mg Benztropine Mesylate (Cogentin) 0.5 mg PO DAILY [facility] Stop: 05/25/17 08:59 Last Admin: 04/10/17 08:11 Dose: 0.5 mg Citalopram Hydrobromide (Celexa) 20 mg PO DAILY [facility] PRN Reason: Protocol Stop: 05/25/17 08:59 Last Admin: 04/10/17 08:11 Dose: 20 mg Docusate Sodium (Colace) 200 mg PO DAILY [facility] Stop: 05/25/17 08:59 Last Admin: 04/10/17 08:13 Dose: 200 mg Lorazepam (Ativan) 1 mg PO Q6HR PRN; Protocol PRN Reason: Agitation Stop: 06/02/17 07:55 Last Admin: 04/09/17 10:17 Dose: 1 mg Magnesium Hydroxide (Milk Of Magnesia) 30 ml PO HS PRN PRN Reason: Constipation Stop: 05/24/17 20:40 Metoclopramide HCl (Reglan) 5 mg PO Q12HR [facility] Stop: 05/24/17 20:59 Last Admin: 04/10/17 08:12 Dose: 5 mg Pantoprazole Sodium (Protonix) 40 mg PO QAM [facility] Stop: 05/25/17 08:59 Last Admin: 04/10/17 08:10 Dose: 40 mg Quetiapine Fumarate (Seroquel) 50 mg PO DAILY [facility] PRN Reason: Protocol Stop: 05/31/17 08:59 Last Admin: 04/10/17 08:12 Dose: 50 mg Quetiapine Fumarate (Seroquel) 300 mg PO HS [facility] Stop: 05/31/17 20:59 Last Admin: 04/09/17 20:47 Dose: 300 mg Zolpidem Tartrate (Ambien) 5 mg PO HS PRN PRN Reason: Insomnia Stop: 06/02/17 07:57 Last Admin: 04/09/17 20:48 Dose: 5 mg General: demented, obese HEENT: NC/AT, PERRLA, EOMI, anicteric sclerae, throat clear Neck: Supple, No JVD, No thyromegaly, +2 carotid pulse wo bruit, No LAD Lungs: CTAB Cardiovascular: RRR, Normal S1, Normal S2, without murmur Abdomen: soft, non-tender, non-distended Extremities: clear Neurological: unable to follow command Internal Medicine Assmt/Plan - Assessment Assessment: 1.HTN. 2.GERD. 3.DEMENTIA. - Plan Plan: CONTINUE ON CURRENT MEDICATION AND DIET. Nutritional Asmnt/Malnutr-PDOC - Dietary Evaluation Malnutrition Findings (Please click <Entered> for more info): Nutritional Asmnt/Malnutrition Start: 03/30/17 16: 13 Text: Status: Complete Freq: Document 03/30/17 16:14 GSUN (Rec: 03/30/17 16:21 [email or web address] Nutritional Asmnt/Malnutrition Patient General Information Nutritional Screening Moderate Risk Screening Diagnosis Unspecified psychosis, dementia moderate with psychotic features Pertinent Medical Hx/Surgical Hx Dementia, depression, GERD, DJD, obesity Subjective Information 77 year old male. Pt seen in wheelchair in rec room, asleep and unable to be woken up. Spoke to ACID WASH OPERATOR in rec room, ACID WASH OPERATOR reported pt has good appetite, no difficulties eating, denied nutritional concerns at this time. Pt appeared overweight, no muscle fat wasting noted. Avg PO intake 100% of meals since adm, meeting nutritional needs. Current Diet Order/ Nutrition Support [facility] soft chopped. Pertinent Medications Colace, Haldol, MOM, Reglan, Protonix, Seroquel Pertinent Labs Reviewed. Nutritional Hx/Data Height 1.78 m Height (Calculated Centimeters) 177.8 Current Weight (lbs) 92.986 kg Weight (Calculated Kilograms) 93.0 Weight (Calculated Grams) 50901.4 [place] Body Weight 166 Weight Status Overweight GI Symptoms Skin Integrity/Comment: Rajesh 17. Skin dryness. Current %PO Good (75-100%) Estimated Nutritional Goals Calories/Kcals/Kg IBW 166lb/75.5kg Kcals Calculated 1888-2265kcal (25-30kcal/kg) Protein Calculated 76g (1g/kg) Fluid: ml 1888-2265ml (1ml/kcal) Nutritional Problem 1. Problem Problem No nutritional problem at this time. Intervention/Recommendation Comments 1. Continue with current diet order. Avg PO intake is adequate. Expected Outcomes/Goals Expected Outcomes/Goals 1. PO intake continue to meet at least 75% of estimated nutritional needs.
--- NOTE | 2017-04-11 01:42 | Progress Notes ---
DATE: 04/10/2017 SUBJECTIVE: Chart reviewed and the patient interviewed. Also discussed the patient's condition with the staff and reviewed records and labs. The patient is still anxious about planning to discharge the patient today if after the court hearing for conservatorship the patient can be discharged. At the same time, we will continue to work on his irritability and his anger. The patient is still disheveled and needs redirections. He also is still having mood swings and anxiety. ASSESSMENT: The patient is still considered gravely disabled. TREATMENT PLAN: Continue monitoring his behavior and we will continue to work on his psychosis and his paranoia. JOB# [id number]
--- NOTE | 2017-04-11 02:42 | Progress Notes ---
DATE: 04/10/2017 SUBJECTIVE: Chart reviewed and the patient interviewed. Also discussed the patient's condition with the staff and reviewed records and labs. The patient was supposed to be discharged yesterday, but his discharge was canceled because of placement and also patient went to a [facility] hearing[facility] The patient is still confused and is easily agitated and restless. He also is still depressed and wants to be left alone. The patient also still needs redirection. He also still seems to be actively responding to stimuli. ASSESSMENT: The patient is still considered to be gravely disabled and is still psychotic. TREATMENT PLAN: We will continue monitoring his behavior and his condition closely. Also, working on placement issue and discharge plans. At the same time, we will continue Seroquel 50 mg in the morning and 300 mg at bedtime, and we will continue to follow up. [facility]# [id number]
[2017-04-11] MEDS: Aspirin 81mg Chewable Tab PO SCH (08:28)
[2017-04-11] MEDS: Pantoprazole 40 mg EC Tab PO SCH (08:28)
[2017-04-11] MEDS ORDERED: Haloperidol Lactate 5 mg/mL 1mL Vial ONE (09:27)
[2017-04-11] MEDS ORDERED: Haloperidol Lactate 5 mg/mL 1mL Vial IM ONE (09:30)
--- NOTE | 2017-04-11 11:32 | General Progress Note ---
Subjective - Review of Systems Service Date: 04/11/17 Subjective: RESTING COMFORTABLY NO DISTRESS Objective - Results Result Diagrams: 03/30/17 07:15 03/30/17 07:15 Recent Labs: Laboratory Last Values WBC 12.6 Th/cmm (4.8-10.8) H 03/30/17 07:15 RBC 5.32 Mil/cmm (3.80-5.80) 03/30/17 07:15 Hgb 15.5 gm/dL (12-16) 03/30/17 07:15 Hct 46.2 % (41.0-60) 03/30/17 07:15 MCV 86.8 fl (80-99) 03/30/17 07:15 MCH 29.1 pg (27.0-31.0) 03/30/17 07:15 MCHC Differential 33.5 pg (28.0-36.0) 03/30/17 07:15 RDW 14.0 % (11.5-20.0) 03/30/17 07:15 Plt Count 215 Th/cmm (150-400) 03/30/17 07:15 MPV 8.0 fl 03/30/17 07:15 Neutrophils % 38.8 % (40.0-80.0) L 03/30/17 07:15 Band Neutrophils % 2 % (0-10) 03/26/17 07:05 Lymphocytes % 45.2 % (20.0-50.0) 03/30/17 07:15 Monocytes % 6.6 % (2.0-10.0) 03/30/17 07:15 Eosinophils % 9.1 % (0.0-5.0) H 03/30/17 07:15 Basophils % 0.3 % (0.0-2.0) 03/30/17 07:15 Neutrophils (Manual) 67 % (40-80) 03/26/17 07:05 Lymphocytes 23 % (20-50) 03/26/17 07:05 Monocytes 5 % (2-10) 03/26/17 07:05 Eosinophils 3 % (0-5) 03/26/17 07:05 Sodium 134 mEq/L (136-145) L 03/30/17 07:15 Potassium 4.0 mEq/L (3.5-5.1) 03/30/17 07:15 Chloride 101 mEq/L (98-107) 03/30/17 07:15 Carbon Dioxide 29.1 mEq/L (21.0-31.0) 03/30/17 07:15 Anion Gap 7.9 (7.0-16.0) 03/30/17 07:15 BUN 17 mg/dL (7-25) 03/30/17 07:15 Creatinine 0.6 mg/dL (0.7-1.3) L 03/30/17 07:15 Est GFR ( Amer) TNP 03/30/17 07:15 Est GFR (Non-Af Amer) TNP 03/30/17 07:15 BUN/Creatinine Ratio 28.3 03/30/17 07:15 Glucose 85 mg/dL (70-105) 03/30/17 07:15 POC Glucose 92 MG/DL (70 - 105) 04/08/17 06:16 Calcium 9.2 mg/dL (8.6-10.3) 03/30/17 07:15 Total Bilirubin 0.5 mg/dL (0.3-1.0) 03/26/17 07:05 AST 14 U/L (13-39) 03/26/17 07:05 ALT 11 U/L (7-52) 03/26/17 07:05 Alkaline Phosphatase 94 U/L (34-104) 03/26/17 07:05 Total Protein 7.0 gm/dL (6.0-8.3) 03/26/17 07:05 Albumin 4.2 gm/dL (4.2-5.5) 03/26/17 07:05 Globulin 2.8 gm/dL 03/26/17 07:05 Albumin/Globulin Ratio 1.5 (1.0-1.8) 03/26/17 07:05 - Physical Exam Vitals and I&O: Vital Signs Temp 98.3 F 04/11/17 06:35 Pulse 77 04/11/17 07:39 Resp 16 04/11/17 07:39 BP 116/72 04/11/17 06:35 Pulse Ox 93 04/11/17 07:39 Intake & Output 04/10/17 04/11/17 04/11/17 18:59 06:59 18:59 Intake Total 1000 120 Balance 1000 120 Intake: Oral 1000 120 Other: # Voids 3 3 # Bowel Movements 1 Active Medications: Current Medications Acetaminophen (Tylenol) 650 mg PO Q6H PRN PRN Reason: Mild Pain/Headache/T above 101 Stop: 05/24/17 20:40 Al Hydrox/Mg Hydrox/Simethicone (Maalox) 30 ml PO Q6H PRN PRN Reason: Dyspepsia Stop: 05/24/17 20:40 Albuterol/Ipratropium (Duoneb Neb) 3 ml HHN Q4H PRN PRN Reason: Wheezing Stop: 05/24/17 21:28 Alprazolam (Xanax) 0.5 mg PO Q8HR [facility] PRN Reason: Protocol Stop: 05/25/17 04:59 Last Admin: 04/11/17 05:10 Dose: Not Given Aspirin (Aspirin Chewable) 81 mg PO DAILY [facility] Stop: 05/25/17 08:59 Last Admin: 04/11/17 08:28 Dose: 81 mg Benztropine Mesylate (Cogentin) 0.5 mg PO DAILY [facility] Stop: 05/25/17 08:59 Last Admin: 04/11/17 08:27 Dose: 0.5 mg Citalopram Hydrobromide (Celexa) 20 mg PO DAILY [facility] PRN Reason: Protocol Stop: 05/25/17 08:59 Last Admin: 04/11/17 08:26 Dose: 20 mg Docusate Sodium (Colace) 200 mg PO DAILY [facility] Stop: 05/25/17 08:59 Last Admin: 04/11/17 08:26 Dose: 200 mg Lorazepam (Ativan) 1 mg PO Q6HR PRN; Protocol PRN Reason: Agitation Stop: 06/02/17 07:55 Last Admin: 04/11/17 08:32 Dose: 1 mg Magnesium Hydroxide (Milk Of Magnesia) 30 ml PO HS PRN PRN Reason: Constipation Stop: 05/24/17 20:40 Metoclopramide HCl (Reglan) 5 mg PO Q12HR [facility] Stop: 05/24/17 20:59 Last Admin: 04/11/17 08:26 Dose: 5 mg Pantoprazole Sodium (Protonix) 40 mg PO QAM [facility] Stop: 05/25/17 08:59 Last Admin: 04/11/17 08:28 Dose: 40 mg Quetiapine Fumarate (Seroquel) 50 mg PO DAILY [facility] PRN Reason: Protocol Stop: 05/31/17 08:59 Last Admin: 04/11/17 08:27 Dose: 50 mg Quetiapine Fumarate (Seroquel) 300 mg PO HS [facility] Stop: 05/31/17 20:59 Last Admin: 04/10/17 20:30 Dose: 300 mg Zolpidem Tartrate (Ambien) 5 mg PO HS PRN PRN Reason: Insomnia Stop: 06/02/17 07:57 Last Admin: 04/09/17 20:48 Dose: 5 mg General: Alert HEENT: Atraumatic, PERRLA, EOMI Neck: Supple, JVD Cardiovascular: Regular rate, Normal S1, Normal S2 Lungs: Clear to auscultation Abdomen: Bowel sounds, Soft Extremities: Clubbing Psych/Mental Status: Mood NL Assessment/Plan - Assessment Assessment: 1.HTN. 2.GERD. 3.DEMENTIA. 4.LEUKOCYTOSIS. 5.HYPONATREMIA. - Plan Plan: CONT CURRENT TREATMENT Nutritional Asmnt/Malnutr-PDOC - Dietary Evaluation Malnutrition Findings (Please click <Entered> for more info): Nutritional Asmnt/Malnutrition Start: 03/30/17 16: 13 Text: Status: Complete Freq: Document 03/30/17 16:14 GSUN (Rec: 03/30/17 16:21 GSUN [email or web address]) Nutritional Asmnt/Malnutrition Patient General Information Nutritional Screening Moderate Risk Screening Diagnosis Unspecified psychosis, dementia moderate with psychotic features Pertinent Medical Hx/Surgical Hx Dementia, depression, GERD, DJD, obesity Subjective Information 77 year old male. Pt seen in wheelchair in rec room, asleep and unable to be woken up. Spoke to PASTRY CHEF in rec room, PASTRY CHEF reported pt has good appetite, no difficulties eating, denied nutritional concerns at this time. Pt appeared overweight, no muscle fat wasting noted. Avg PO intake 100% of meals since adm, meeting nutritional needs. Current Diet Order/ Nutrition Support [facility] soft chopped. Pertinent Medications Colace, Haldol, MOM, Reglan, Protonix, Seroquel Pertinent Labs Reviewed. Nutritional Hx/Data Height 1.78 m Height (Calculated Centimeters) 177.8 Current Weight (lbs) 92.986 kg Weight (Calculated Kilograms) 93.0 Weight (Calculated Grams) 37925.4 [place] Body Weight 166 Weight Status Overweight GI Symptoms Skin Integrity/Comment: Rajesh 17. Skin dryness. Current %PO Good (75-100%) Estimated Nutritional Goals Calories/Kcals/Kg IBW 166lb/75.5kg Kcals Calculated 1888-2265kcal (25-30kcal/kg) Protein Calculated 76g (1g/kg) Fluid: ml 1888-2265ml (1ml/kcal) Nutritional Problem 1. Problem Problem No nutritional problem at this time. Intervention/Recommendation Comments 1. Continue with current diet order. Avg PO intake is adequate. Expected Outcomes/Goals Expected Outcomes/Goals 1. PO intake continue to meet at least 75% of estimated nutritional needs.
--- NOTE | 2017-04-11 21:49 | Progress Notes ---
DATE: 04/11/2017 SUBJECTIVE: The patient seen, chart reviewed, discussed with staff. The patient remains anxious, still does not know why he is here, easily agitated, focussed on smoking and going home, highly forgetful, believes he is 72 years old, believes the year is 2011, states that he can live on his own and he lives alone. He believes that his parents are alive, although he himself is 77 years old, so this is difficult to believe, but possible; still with mood swings. ASSESSMENT: The patient remains confused, disoriented, anxious, perseverative, concerns for grave disability. PLAN: We will continue to monitor. Given his ongoing symptoms, he is not safe for discharge at this time. [facility]# [id number]
[2017-04-12] MEDS: Aspirin 81mg Chewable Tab PO SCH (08:24)
[2017-04-12] MEDS: Pantoprazole 40 mg EC Tab PO SCH (08:24)
[2017-04-12] MEDS ORDERED: chlorproMAZINE 25 mg/mL 2mL Amp ONE (09:04)
[2017-04-12] MEDS ORDERED: chlorproMAZINE 25 mg/mL 2mL Amp IM ONE (09:10)
--- NOTE | 2017-04-12 09:21 | Progress Notes ---
DATE: 04/12/2017 SUBJECTIVE: The patient seen, chart reviewed, discussed with staff. The patient remains symptomatic, still agitated, still requiring a lot of staff interventions, redirections. Still forgetful, impulsive, unpredictable, highly confused, disoriented, disorganized, perseverative, still with mood swings, irritability, states he wants to go home immediately, but there are concerns about his ability to care for himself and per staff he is highly symptomatic. ASSESSMENT: The patient remains confused, agitated, disorganized, concerns for grave disability. PLAN: We will continue to monitor, given his ongoing symptoms, he is not safe for discharge. Medications were reviewed. Currently on Seroquel 50 mg daily, 30 mg at bedtime. We will increase the night time dosing to target residual symptoms [facility]# [id number] [place]
--- NOTE | 2017-04-12 19:47 | General Progress Note ---
Subjective - Review of Systems Service Date: 04/12/17 Subjective: RESTING COMFORTABLY NO DISTRESS Objective - Results Result Diagrams: 03/30/17 07:15 03/30/17 07:15 Recent Labs: Laboratory Last Values WBC 12.6 Th/cmm (4.8-10.8) H 03/30/17 07:15 RBC 5.32 Mil/cmm (3.80-5.80) 03/30/17 07:15 Hgb 15.5 gm/dL (12-16) 03/30/17 07:15 Hct 46.2 % (41.0-60) 03/30/17 07:15 MCV 86.8 fl (80-99) 03/30/17 07:15 MCH 29.1 pg (27.0-31.0) 03/30/17 07:15 MCHC Differential 33.5 pg (28.0-36.0) 03/30/17 07:15 RDW 14.0 % (11.5-20.0) 03/30/17 07:15 Plt Count 215 Th/cmm (150-400) 03/30/17 07:15 MPV 8.0 fl 03/30/17 07:15 Neutrophils % 38.8 % (40.0-80.0) L 03/30/17 07:15 Band Neutrophils % 2 % (0-10) 03/26/17 07:05 Lymphocytes % 45.2 % (20.0-50.0) 03/30/17 07:15 Monocytes % 6.6 % (2.0-10.0) 03/30/17 07:15 Eosinophils % 9.1 % (0.0-5.0) H 03/30/17 07:15 Basophils % 0.3 % (0.0-2.0) 03/30/17 07:15 Neutrophils (Manual) 67 % (40-80) 03/26/17 07:05 Lymphocytes 23 % (20-50) 03/26/17 07:05 Monocytes 5 % (2-10) 03/26/17 07:05 Eosinophils 3 % (0-5) 03/26/17 07:05 Sodium 134 mEq/L (136-145) L 03/30/17 07:15 Potassium 4.0 mEq/L (3.5-5.1) 03/30/17 07:15 Chloride 101 mEq/L (98-107) 03/30/17 07:15 Carbon Dioxide 29.1 mEq/L (21.0-31.0) 03/30/17 07:15 Anion Gap 7.9 (7.0-16.0) 03/30/17 07:15 BUN 17 mg/dL (7-25) 03/30/17 07:15 Creatinine 0.6 mg/dL (0.7-1.3) L 03/30/17 07:15 Est GFR ( Amer) TNP 03/30/17 07:15 Est GFR (Non-Af Amer) TNP 03/30/17 07:15 BUN/Creatinine Ratio 28.3 03/30/17 07:15 Glucose 85 mg/dL (70-105) 03/30/17 07:15 POC Glucose 92 MG/DL (70 - 105) 04/08/17 06:16 Calcium 9.2 mg/dL (8.6-10.3) 03/30/17 07:15 Total Bilirubin 0.5 mg/dL (0.3-1.0) 03/26/17 07:05 AST 14 U/L (13-39) 03/26/17 07:05 ALT 11 U/L (7-52) 03/26/17 07:05 Alkaline Phosphatase 94 U/L (34-104) 03/26/17 07:05 Total Protein 7.0 gm/dL (6.0-8.3) 03/26/17 07:05 Albumin 4.2 gm/dL (4.2-5.5) 03/26/17 07:05 Globulin 2.8 gm/dL 03/26/17 07:05 Albumin/Globulin Ratio 1.5 (1.0-1.8) 03/26/17 07:05 - Physical Exam Vitals and I&O: Vital Signs Temp 97.9 F 04/12/17 16:34 Pulse 82 04/12/17 16:34 Resp 20 04/12/17 16:34 BP 118/75 04/12/17 16:34 Pulse Ox 97 04/12/17 16:34 Active Medications: Current Medications Acetaminophen (Tylenol) 650 mg PO Q6H PRN PRN Reason: Mild Pain/Headache/T above 101 Stop: 05/24/17 20:40 Al Hydrox/Mg Hydrox/Simethicone (Maalox) 30 ml PO Q6H PRN PRN Reason: Dyspepsia Stop: 05/24/17 20:40 Albuterol/Ipratropium (Duoneb Neb) 3 ml HHN Q4H PRN PRN Reason: Wheezing Stop: 05/24/17 21:28 Alprazolam (Xanax) 0.5 mg PO Q8HR [facility] PRN Reason: Protocol Stop: 05/25/17 04:59 Last Admin: 04/12/17 13:21 Dose: 0.5 mg Aspirin (Aspirin Chewable) 81 mg PO DAILY [facility] Stop: 05/25/17 08:59 Last Admin: 04/12/17 08:24 Dose: 81 mg Benztropine Mesylate (Cogentin) 0.5 mg PO DAILY [facility] Stop: 05/25/17 08:59 Last Admin: 04/12/17 08:24 Dose: 0.5 mg Citalopram Hydrobromide (Celexa) 20 mg PO DAILY [facility] PRN Reason: Protocol Stop: 05/25/17 08:59 Last Admin: 04/12/17 08:25 Dose: 20 mg Docusate Sodium (Colace) 200 mg PO DAILY [facility] Stop: 05/25/17 08:59 Last Admin: 04/12/17 08:24 Dose: 200 mg Lorazepam (Ativan) 1 mg PO Q6HR PRN; Protocol PRN Reason: Agitation Stop: 06/02/17 07:55 Last Admin: 04/12/17 18:19 Dose: 1 mg Magnesium Hydroxide (Milk Of Magnesia) 30 ml PO HS PRN PRN Reason: Constipation Stop: 05/24/17 20:40 Metoclopramide HCl (Reglan) 5 mg PO Q12HR [facility] Stop: 05/24/17 20:59 Last Admin: 04/12/17 08:25 Dose: 5 mg Pantoprazole Sodium (Protonix) 40 mg PO QAM [facility] Stop: 05/25/17 08:59 Last Admin: 04/12/17 08:24 Dose: 40 mg Quetiapine Fumarate (Seroquel) 50 mg PO DAILY [facility] PRN Reason: Protocol Stop: 05/31/17 08:59 Last Admin: 04/12/17 08:25 Dose: 50 mg Quetiapine Fumarate 300 mg/ (Quetiapine Fumarate 50 mg) 350 mg PO HS [facility] Stop: 06/11/17 20:59 Zolpidem Tartrate (Ambien) 5 mg PO HS PRN PRN Reason: Insomnia Stop: 06/02/17 07:57 Last Admin: 04/09/17 20:48 Dose: 5 mg General: Alert HEENT: Atraumatic, PERRLA, EOMI Neck: Supple, JVD Cardiovascular: Regular rate, Normal S1, Normal S2 Lungs: Clear to auscultation Abdomen: Bowel sounds, Soft Extremities: Clubbing Psych/Mental Status: Mood NL Assessment/Plan - Assessment Assessment: 1.HTN. 2.GERD. 3.DEMENTIA. 4.LEUKOCYTOSIS. 5.HYPONATREMIA. - Plan Plan: CONT CURRENT TREATMENT Nutritional Asmnt/Malnutr-PDOC - Dietary Evaluation Malnutrition Findings (Please click <Entered> for more info): Nutritional Asmnt/Malnutrition Start: 03/30/17 16: 13 Text: Status: Complete Freq: Document 03/30/17 16:14 GSUN (Rec: 03/30/17 16:21 GSUN [email or web address]) Nutritional Asmnt/Malnutrition Patient General Information Nutritional Screening Moderate Risk Screening Diagnosis Unspecified psychosis, dementia moderate with psychotic features Pertinent Medical Hx/Surgical Hx Dementia, depression, GERD, DJD, obesity Subjective Information 77 year old male. Pt seen in wheelchair in rec room, asleep and unable to be woken up. Spoke to CHARTER BOAT CAPTAIN in rec room, CHARTER BOAT CAPTAIN reported pt has good appetite, no difficulties eating, denied nutritional concerns at this time. Pt appeared overweight, no muscle fat wasting noted. Avg PO intake 100% of meals since adm, meeting nutritional needs. Current Diet Order/ Nutrition Support [facility] soft chopped. Pertinent Medications Colace, Haldol, MOM, Reglan, Protonix, Seroquel Pertinent Labs Reviewed. Nutritional Hx/Data Height 1.78 m Height (Calculated Centimeters) 177.8 Current Weight (lbs) 92.986 kg Weight (Calculated Kilograms) 93.0 Weight (Calculated Grams) 66628.4 [place] Body Weight 166 Weight Status Overweight GI Symptoms Skin Integrity/Comment: Rajesh 17. Skin dryness. Current %PO Good (75-100%) Estimated Nutritional Goals Calories/Kcals/Kg IBW 166lb/75.5kg Kcals Calculated 1888-2265kcal (25-30kcal/kg) Protein Calculated 76g (1g/kg) Fluid: ml 1888-2265ml (1ml/kcal) Nutritional Problem 1. Problem Problem No nutritional problem at this time. Intervention/Recommendation Comments 1. Continue with current diet order. Avg PO intake is adequate. Expected Outcomes/Goals Expected Outcomes/Goals 1. PO intake continue to meet at least 75% of estimated nutritional needs.
[2017-04-13] MEDS: Pantoprazole 40 mg EC Tab PO SCH (09:25)
[2017-04-13] MEDS: Aspirin 81mg Chewable Tab PO SCH (09:25)
--- NOTE | 2017-04-13 10:25 | Progress Notes ---
DATE: 04/13/2017 SUBJECTIVE: Chart reviewed and the patient interviewed. Also discussed the patient's condition with the staff and reviewed records and labs. The patient continued to be extremely agitated and is extremely irritable. The patient also is still restless and is still aggressive with the staff and unable to follow any of staff directions. The patient also still has to be given p.r.n. medications to calm him down. During interview, the patient is confused, irritable, and in angry mood. Also unable to carry on a coherent conversation because of his agitation. ASSESSMENT: The patient is still psychotic and aggressive and can be dangerous to others. TREATMENT PLAN: We will continue monitoring his behavior and his condition closely. Although the patient is taking Seroquel, yet it seems that is not helping him enough to control his behavior. We will add Thorazine since he is saying the Thorazine did help him before. although the patient is taking Seroquel, but we will gradually decrease Seroquel later on and we will continue to monitor his behavior and his condition closely. JOB# [id number]
[2017-04-13] MEDS ORDERED: chlorproMAZINE 25 mg/mL 2mL Amp IM STA (14:17)
[2017-04-13] MEDS ORDERED: chlorproMAZINE 25 mg/mL 2mL Amp ONE (14:19)
--- NOTE | 2017-04-13 19:31 | Internal Medicine Prog Note ---
Internal Medicine Subjective - Subjective Service Date: 04/13/17 Patient seen and examined:: without staff Patient is:: awake, non-verbal, in bed, confused Per staff patient has:: no adverse event Internal Medicine Objective - Results Result Diagrams: 03/30/17 07:15 03/30/17 07:15 Recent Labs: Laboratory Last Values WBC 12.6 Th/cmm (4.8-10.8) H 03/30/17 07:15 RBC 5.32 Mil/cmm (3.80-5.80) 03/30/17 07:15 Hgb 15.5 gm/dL (12-16) 03/30/17 07:15 Hct 46.2 % (41.0-60) 03/30/17 07:15 MCV 86.8 fl (80-99) 03/30/17 07:15 MCH 29.1 pg (27.0-31.0) 03/30/17 07:15 MCHC Differential 33.5 pg (28.0-36.0) 03/30/17 07:15 RDW 14.0 % (11.5-20.0) 03/30/17 07:15 Plt Count 215 Th/cmm (150-400) 03/30/17 07:15 MPV 8.0 fl 03/30/17 07:15 Neutrophils % 38.8 % (40.0-80.0) L 03/30/17 07:15 Band Neutrophils % 2 % (0-10) 03/26/17 07:05 Lymphocytes % 45.2 % (20.0-50.0) 03/30/17 07:15 Monocytes % 6.6 % (2.0-10.0) 03/30/17 07:15 Eosinophils % 9.1 % (0.0-5.0) H 03/30/17 07:15 Basophils % 0.3 % (0.0-2.0) 03/30/17 07:15 Neutrophils (Manual) 67 % (40-80) 03/26/17 07:05 Lymphocytes 23 % (20-50) 03/26/17 07:05 Monocytes 5 % (2-10) 03/26/17 07:05 Eosinophils 3 % (0-5) 03/26/17 07:05 Sodium 134 mEq/L (136-145) L 03/30/17 07:15 Potassium 4.0 mEq/L (3.5-5.1) 03/30/17 07:15 Chloride 101 mEq/L (98-107) 03/30/17 07:15 Carbon Dioxide 29.1 mEq/L (21.0-31.0) 03/30/17 07:15 Anion Gap 7.9 (7.0-16.0) 03/30/17 07:15 BUN 17 mg/dL (7-25) 03/30/17 07:15 Creatinine 0.6 mg/dL (0.7-1.3) L 03/30/17 07:15 Est GFR ( Amer) TNP 03/30/17 07:15 Est GFR (Non-Af Amer) TNP 03/30/17 07:15 BUN/Creatinine Ratio 28.3 03/30/17 07:15 Glucose 85 mg/dL (70-105) 03/30/17 07:15 POC Glucose 92 MG/DL (70 - 105) 04/08/17 06:16 Calcium 9.2 mg/dL (8.6-10.3) 03/30/17 07:15 Total Bilirubin 0.5 mg/dL (0.3-1.0) 03/26/17 07:05 AST 14 U/L (13-39) 03/26/17 07:05 ALT 11 U/L (7-52) 03/26/17 07:05 Alkaline Phosphatase 94 U/L (34-104) 03/26/17 07:05 Total Protein 7.0 gm/dL (6.0-8.3) 03/26/17 07:05 Albumin 4.2 gm/dL (4.2-5.5) 03/26/17 07:05 Globulin 2.8 gm/dL 03/26/17 07:05 Albumin/Globulin Ratio 1.5 (1.0-1.8) 03/26/17 07:05 - Physical Exam Vitals and I&O: Vital Signs Temp 98.2 F 04/13/17 15:27 Pulse 60 04/13/17 15:27 Resp 19 04/13/17 15:27 BP 124/58 04/13/17 15:27 Pulse Ox 99 04/13/17 15:27 Intake & Output 04/13/17 04/13/17 04/14/17 06:59 18:59 06:59 Intake Total 420 2400 Balance 420 2400 Intake: Oral 420 2400 Other: # Voids 2 4 # Bowel Movements 0 0 Active Medications: Current Medications Acetaminophen (Tylenol) 650 mg PO Q6H PRN PRN Reason: Mild Pain/Headache/T above 101 Stop: 05/24/17 20:40 Al Hydrox/Mg Hydrox/Simethicone (Maalox) 30 ml PO Q6H PRN PRN Reason: Dyspepsia Stop: 05/24/17 20:40 Albuterol/Ipratropium (Duoneb Neb) 3 ml HHN Q4H PRN PRN Reason: Wheezing Stop: 05/24/17 21:28 Alprazolam (Xanax) 0.5 mg PO Q8HR BROOK PRN Reason: Protocol Stop: 05/25/17 04:59 Last Admin: 04/13/17 13:06 Dose: 0.5 mg Aspirin (Aspirin Chewable) 81 mg PO DAILY BROOK Stop: 05/25/17 08:59 Last Admin: 04/13/17 09:25 Dose: 81 mg Benztropine Mesylate (Cogentin) 0.5 mg PO DAILY BROOK Stop: 05/25/17 08:59 Last Admin: 04/13/17 09:25 Dose: 0.5 mg Chlorpromazine (Thorazine) 50 mg PO BID BROOK PRN Reason: Protocol Stop: 06/12/17 16:59 Last Admin: 04/13/17 16:36 Dose: 50 mg Citalopram Hydrobromide (Celexa) 20 mg PO DAILY BROOK PRN Reason: Protocol Stop: 05/25/17 08:59 Last Admin: 04/13/17 09:26 Dose: 20 mg Docusate Sodium (Colace) 200 mg PO DAILY BROOK Stop: 05/25/17 08:59 Last Admin: 04/13/17 09:26 Dose: 200 mg Lorazepam (Ativan) 1 mg PO Q6HR PRN; Protocol PRN Reason: Agitation Stop: 06/02/17 07:55 Last Admin: 04/12/17 18:19 Dose: 1 mg Magnesium Hydroxide (Milk Of Magnesia) 30 ml PO HS PRN PRN Reason: Constipation Stop: 05/24/17 20:40 Metoclopramide HCl (Reglan) 5 mg PO Q12HR BROOK Stop: 05/24/17 20:59 Last Admin: 04/13/17 09:26 Dose: 5 mg Pantoprazole Sodium (Protonix) 40 mg PO QAM BROOK Stop: 05/25/17 08:59 Last Admin: 04/13/17 09:25 Dose: 40 mg Quetiapine Fumarate (Seroquel) 50 mg PO DAILY BROOK PRN Reason: Protocol Stop: 05/31/17 08:59 Last Admin: 04/13/17 09:30 Dose: 50 mg Quetiapine Fumarate 300 mg/ (Quetiapine Fumarate 50 mg) 350 mg PO HS BROOK Stop: 06/11/17 20:59 Last Admin: 04/12/17 21:06 Dose: 350 mg Zolpidem Tartrate (Ambien) 5 mg PO HS PRN PRN Reason: Insomnia Stop: 06/02/17 07:57 Last Admin: 04/09/17 20:48 Dose: 5 mg General: demented, obese HEENT: NC/AT, PERRLA, EOMI, anicteric sclerae, throat clear Neck: Supple, No JVD, No thyromegaly, +2 carotid pulse wo bruit, No LAD Lungs: CTAB Cardiovascular: RRR, Normal S1, Normal S2, without murmur Abdomen: soft, non-tender, non-distended Extremities: clear Neurological: unable to follow command Internal Medicine Assmt/Plan - Assessment Assessment: 1.HTN. 2.GERD. 3.DEMENTIA. - Plan Plan: CONTINUE ON CURRENT MEDICATION AND DIET. Nutritional Asmnt/Malnutr-PDOC - Dietary Evaluation Malnutrition Findings (Please click <Entered> for more info): Nutritional Asmnt/Malnutrition Start: 03/30/17 16: 13 Text: Status: Complete Freq: Document 03/30/17 16:14 GSUN (Rec: 03/30/17 16:21 [email or web address] [email or web address]) Nutritional Asmnt/Malnutrition Patient General Information Nutritional Screening Moderate Risk Screening Diagnosis Unspecified psychosis, dementia moderate with psychotic features Pertinent Medical Hx/Surgical Hx Dementia, depression, GERD, DJD, obesity Subjective Information 77 year old male. Pt seen in wheelchair in rec room, asleep and unable to be woken up. Spoke to SUSTAINABLE DEVELOPMENT POLICY ANALYST in rec room, SUSTAINABLE DEVELOPMENT POLICY ANALYST reported pt has good appetite, no difficulties eating, denied nutritional concerns at this time. Pt appeared overweight, no muscle fat wasting noted. Avg PO intake 100% of meals since adm, meeting nutritional needs. Current Diet Order/ Nutrition Support Mech soft chopped. Pertinent Medications Colace, Haldol, MOM, Reglan, Protonix, Seroquel Pertinent Labs Reviewed. Nutritional Hx/Data Height 1.78 m Height (Calculated Centimeters) 177.8 Current Weight (lbs) 92.986 kg Weight (Calculated Kilograms) 93.0 Weight (Calculated Grams) 09998.4 [place] Body Weight 166 Weight Status Overweight GI Symptoms Skin Integrity/Comment: Rajesh Ramsey. Skin dryness. Current %PO Good (75-100%) Estimated Nutritional Goals Calories/Kcals/Kg IBW 166lb/75.5kg Kcals Calculated 1888-2265kcal (25-30kcal/kg) Protein Calculated 76g (1g/kg) Fluid: ml 1888-2265ml (1ml/kcal) Nutritional Problem 1. Problem Problem No nutritional problem at this time. Intervention/Recommendation Comments 1. Continue with current diet order. Avg PO intake is adequate. Expected Outcomes/Goals Expected Outcomes/Goals 1. PO intake continue to meet at least 75% of estimated nutritional needs.
[2017-04-14] MEDS: Pantoprazole 40 mg EC Tab PO SCH (08:16)
[2017-04-14] MEDS: Aspirin 81mg Chewable Tab PO SCH (08:16)
--- NOTE | 2017-04-14 19:18 | Internal Medicine Prog Note ---
Internal Medicine Subjective - Subjective Service Date: 04/14/17 Patient seen and examined:: without staff Patient is:: awake, non-verbal, in bed, confused Per staff patient has:: no adverse event Internal Medicine Objective - Results Result Diagrams: 03/30/17 07:15 03/30/17 07:15 Recent Labs: Laboratory Last Values WBC 12.6 Th/cmm (4.8-10.8) H 03/30/17 07:15 RBC 5.32 Mil/cmm (3.80-5.80) 03/30/17 07:15 Hgb 15.5 gm/dL (12-16) 03/30/17 07:15 Hct 46.2 % (41.0-60) 03/30/17 07:15 MCV 86.8 fl (80-99) 03/30/17 07:15 MCH 29.1 pg (27.0-31.0) 03/30/17 07:15 MCHC Differential 33.5 pg (28.0-36.0) 03/30/17 07:15 RDW 14.0 % (11.5-20.0) 03/30/17 07:15 Plt Count 215 Th/cmm (150-400) 03/30/17 07:15 MPV 8.0 fl 03/30/17 07:15 Neutrophils % 38.8 % (40.0-80.0) L 03/30/17 07:15 Band Neutrophils % 2 % (0-10) 03/26/17 07:05 Lymphocytes % 45.2 % (20.0-50.0) 03/30/17 07:15 Monocytes % 6.6 % (2.0-10.0) 03/30/17 07:15 Eosinophils % 9.1 % (0.0-5.0) H 03/30/17 07:15 Basophils % 0.3 % (0.0-2.0) 03/30/17 07:15 Neutrophils (Manual) 67 % (40-80) 03/26/17 07:05 Lymphocytes 23 % (20-50) 03/26/17 07:05 Monocytes 5 % (2-10) 03/26/17 07:05 Eosinophils 3 % (0-5) 03/26/17 07:05 Sodium 134 mEq/L (136-145) L 03/30/17 07:15 Potassium 4.0 mEq/L (3.5-5.1) 03/30/17 07:15 Chloride 101 mEq/L (98-107) 03/30/17 07:15 Carbon Dioxide 29.1 mEq/L (21.0-31.0) 03/30/17 07:15 Anion Gap 7.9 (7.0-16.0) 03/30/17 07:15 BUN 17 mg/dL (7-25) 03/30/17 07:15 Creatinine 0.6 mg/dL (0.7-1.3) L 03/30/17 07:15 Est GFR ( Amer) TNP 03/30/17 07:15 Est GFR (Non-Af Amer) TNP 03/30/17 07:15 BUN/Creatinine Ratio 28.3 03/30/17 07:15 Glucose 85 mg/dL (70-105) 03/30/17 07:15 POC Glucose 92 MG/DL (70 - 105) 04/08/17 06:16 Calcium 9.2 mg/dL (8.6-10.3) 03/30/17 07:15 Total Bilirubin 0.5 mg/dL (0.3-1.0) 03/26/17 07:05 AST 14 U/L (13-39) 03/26/17 07:05 ALT 11 U/L (7-52) 03/26/17 07:05 Alkaline Phosphatase 94 U/L (34-104) 03/26/17 07:05 Total Protein 7.0 gm/dL (6.0-8.3) 03/26/17 07:05 Albumin 4.2 gm/dL (4.2-5.5) 03/26/17 07:05 Globulin 2.8 gm/dL 03/26/17 07:05 Albumin/Globulin Ratio 1.5 (1.0-1.8) 03/26/17 07:05 - Physical Exam Vitals and I&O: Vital Signs Temp 98.1 F 04/14/17 17:26 Pulse 73 04/14/17 17:26 Resp 19 04/14/17 17:26 BP 123/83 04/14/17 17:26 Pulse Ox 96 04/14/17 17:26 Intake & Output 04/14/17 04/14/17 04/15/17 06:59 18:59 06:59 Intake Total 240 1200 Balance 240 1200 Intake: Oral 240 1200 Other: # Voids 3 4 # Bowel Movements 0 Active Medications: Current Medications Acetaminophen (Tylenol) 650 mg PO Q6H PRN PRN Reason: Mild Pain/Headache/T above 101 Stop: 05/24/17 20:40 Al Hydrox/Mg Hydrox/Simethicone (Maalox) 30 ml PO Q6H PRN PRN Reason: Dyspepsia Stop: 05/24/17 20:40 Albuterol/Ipratropium (Duoneb Neb) 3 ml HHN Q4H PRN PRN Reason: Wheezing Stop: 05/24/17 21:28 Alprazolam (Xanax) 0.5 mg PO Q8HR BROOK PRN Reason: Protocol Stop: 05/25/17 04:59 Last Admin: 04/14/17 16:04 Dose: Not Given Aspirin (Aspirin Chewable) 81 mg PO DAILY BROOK Stop: 05/25/17 08:59 Last Admin: 04/14/17 08:16 Dose: 81 mg Benztropine Mesylate (Cogentin) 0.5 mg PO DAILY BROOK Stop: 05/25/17 08:59 Last Admin: 04/14/17 08:18 Dose: 0.5 mg Chlorpromazine (Thorazine) 50 mg PO BID BROOK PRN Reason: Protocol Stop: 06/12/17 16:59 Last Admin: 04/14/17 16:21 Dose: 50 mg Citalopram Hydrobromide (Celexa) 20 mg PO DAILY BROOK PRN Reason: Protocol Stop: 05/25/17 08:59 Last Admin: 04/14/17 08:17 Dose: 20 mg Docusate Sodium (Colace) 200 mg PO DAILY BROOK Stop: 05/25/17 08:59 Last Admin: 04/14/17 08:17 Dose: 200 mg Lorazepam (Ativan) 1 mg PO Q6HR PRN; Protocol PRN Reason: Agitation Stop: 06/02/17 07:55 Last Admin: 04/14/17 16:05 Dose: 1 mg Magnesium Hydroxide (Milk Of Magnesia) 30 ml PO HS PRN PRN Reason: Constipation Stop: 05/24/17 20:40 Metoclopramide HCl (Reglan) 5 mg PO Q12HR BROOK Stop: 05/24/17 20:59 Last Admin: 04/14/17 08:22 Dose: 5 mg Pantoprazole Sodium (Protonix) 40 mg PO QAM BROOK Stop: 05/25/17 08:59 Last Admin: 04/14/17 08:16 Dose: 40 mg Quetiapine Fumarate (Seroquel) 50 mg PO DAILY BROOK PRN Reason: Protocol Stop: 05/31/17 08:59 Last Admin: 04/14/17 08:16 Dose: 50 mg Quetiapine Fumarate 300 mg/ (Quetiapine Fumarate 50 mg) 350 mg PO HS BROOK Stop: 06/11/17 20:59 Last Admin: 04/13/17 20:44 Dose: 350 mg Zolpidem Tartrate (Ambien) 5 mg PO HS PRN PRN Reason: Insomnia Stop: 06/02/17 07:57 Last Admin: 04/13/17 20:44 Dose: 5 mg General: demented, obese HEENT: NC/AT, PERRLA, EOMI, anicteric sclerae, throat clear Neck: Supple, No JVD, No thyromegaly, +2 carotid pulse wo bruit, No LAD Lungs: CTAB Cardiovascular: RRR, Normal S1, Normal S2, without murmur Abdomen: soft, non-tender, non-distended Extremities: clear Neurological: unable to follow command Internal Medicine Assmt/Plan - Assessment Assessment: 1.HTN. 2.GERD. 3.DEMENTIA. - Plan Plan: CONTINUE ON CURRENT MEDICATION AND DIET. Nutritional Asmnt/Malnutr-PDOC - Dietary Evaluation Malnutrition Findings (Please click <Entered> for more info): Nutritional Asmnt/Malnutrition Start: 03/30/17 16: 13 Text: Status: Complete Freq: Document 03/30/17 16:14 GSUN (Rec: 03/30/17 16:21 [email or web address] [email or web address]) Nutritional Asmnt/Malnutrition Patient General Information Nutritional Screening Moderate Risk Screening Diagnosis Unspecified psychosis, dementia moderate with psychotic features Pertinent Medical Hx/Surgical Hx Dementia, depression, GERD, DJD, obesity Subjective Information 77 year old male. Pt seen in wheelchair in rec room, asleep and unable to be woken up. Spoke to LEVEL GLASS FORMING MACHINE OPERATOR in rec room, LEVEL GLASS FORMING MACHINE OPERATOR reported pt has good appetite, no difficulties eating, denied nutritional concerns at this time. Pt appeared overweight, no muscle fat wasting noted. Avg PO intake 100% of meals since adm, meeting nutritional needs. [facility] Pertinent Medications Colace, Haldol, MOM, Reglan, Protonix, Seroquel Pertinent Labs Reviewed. Nutritional Hx/Data Height 1.78 m Height (Calculated Centimeters) 177.8 Current Weight (lbs) 92.986 kg Weight (Calculated Kilograms) 93.0 Weight (Calculated Grams) 11871.4 [place] Body Weight 166 Weight Status Overweight GI Symptoms Skin Integrity/Comment: Rajesh 17. Skin dryness. Current %PO Good (75-100%) Estimated Nutritional Goals Calories/Kcals/Kg IBW 166lb/75.5kg Kcals Calculated 1888-2265kcal (25-30kcal/kg) Protein Calculated 76g (1g/kg) Fluid: ml 1888-2265ml (1ml/kcal) Nutritional Problem 1. Problem Problem No nutritional problem at this time. Intervention/Recommendation Comments 1. Continue with current diet order. Avg PO intake is adequate. Expected Outcomes/Goals Expected Outcomes/Goals 1. PO intake continue to meet at least 75% of estimated nutritional needs.
--- NOTE | 2017-04-15 06:15 | Progress Notes ---
DATE: 04/14/2017 SUBJECTIVE: Chart reviewed and the patient interviewed. Also discussed the patient's condition with the staff and reviewed records and labs. The patient is still confused and restless. The patient also is still easily agitated and needs lots of redirections. He also still has periods of yelling and screaming and he is still confused. The patient also is actively responding to stimuli and going around with wheelchair talking to himself. He also gets agitated when staff tries to redirect him. On the other hand, the patient is slightly easier to redirect him. ASSESSMENT: The patient is still psychotic and agitated. TREATMENT PLAN: Discussed the case with child welfare caseworker and he still can't find a place for the patient and working with conservator in order to find placement for the patient. I spoke with personal care home administrator, hopefully that they can accept him there and waiting for an interview of the patient. JOB# [id number]
[2017-04-15] MEDS: Aspirin 81mg Chewable Tab PO SCH (08:27)
[2017-04-15] MEDS: Pantoprazole 40 mg EC Tab PO SCH (08:28)
--- NOTE | 2017-04-15 20:17 | Internal Medicine Prog Note ---
Internal Medicine Subjective - Subjective Service Date: 04/15/17 Patient seen and examined:: without staff Patient is:: awake, non-verbal, in bed, confused Per staff patient has:: no adverse event Internal Medicine Objective - Results Result Diagrams: 03/30/17 07:15 03/30/17 07:15 Recent Labs: Laboratory Last Values WBC 12.6 Th/cmm (4.8-10.8) H 03/30/17 07:15 RBC 5.32 Mil/cmm (3.80-5.80) 03/30/17 07:15 Hgb 15.5 gm/dL (12-16) 03/30/17 07:15 Hct 46.2 % (41.0-60) 03/30/17 07:15 MCV 86.8 fl (80-99) 03/30/17 07:15 MCH 29.1 pg (27.0-31.0) 03/30/17 07:15 MCHC Differential 33.5 pg (28.0-36.0) 03/30/17 07:15 RDW 14.0 % (11.5-20.0) 03/30/17 07:15 Plt Count 215 Th/cmm (150-400) 03/30/17 07:15 MPV 8.0 fl 03/30/17 07:15 Neutrophils % 38.8 % (40.0-80.0) L 03/30/17 07:15 Band Neutrophils % 2 % (0-10) 03/26/17 07:05 Lymphocytes % 45.2 % (20.0-50.0) 03/30/17 07:15 Monocytes % 6.6 % (2.0-10.0) 03/30/17 07:15 Eosinophils % 9.1 % (0.0-5.0) H 03/30/17 07:15 Basophils % 0.3 % (0.0-2.0) 03/30/17 07:15 Neutrophils (Manual) 67 % (40-80) 03/26/17 07:05 Lymphocytes 23 % (20-50) 03/26/17 07:05 Monocytes 5 % (2-10) 03/26/17 07:05 Eosinophils 3 % (0-5) 03/26/17 07:05 Sodium 134 mEq/L (136-145) L 03/30/17 07:15 Potassium 4.0 mEq/L (3.5-5.1) 03/30/17 07:15 Chloride 101 mEq/L (98-107) 03/30/17 07:15 Carbon Dioxide 29.1 mEq/L (21.0-31.0) 03/30/17 07:15 Anion Gap 7.9 (7.0-16.0) 03/30/17 07:15 BUN 17 mg/dL (7-25) 03/30/17 07:15 Creatinine 0.6 mg/dL (0.7-1.3) L 03/30/17 07:15 Est GFR ( Amer) TNP 03/30/17 07:15 Est GFR (Non-Af Amer) TNP 03/30/17 07:15 BUN/Creatinine Ratio 28.3 03/30/17 07:15 Glucose 85 mg/dL (70-105) 03/30/17 07:15 POC Glucose 92 MG/DL (70 - 105) 04/08/17 06:16 Calcium 9.2 mg/dL (8.6-10.3) 03/30/17 07:15 Total Bilirubin 0.5 mg/dL (0.3-1.0) 03/26/17 07:05 AST 14 U/L (13-39) 03/26/17 07:05 ALT 11 U/L (7-52) 03/26/17 07:05 Alkaline Phosphatase 94 U/L (34-104) 03/26/17 07:05 Total Protein 7.0 gm/dL (6.0-8.3) 03/26/17 07:05 Albumin 4.2 gm/dL (4.2-5.5) 03/26/17 07:05 Globulin 2.8 gm/dL 03/26/17 07:05 Albumin/Globulin Ratio 1.5 (1.0-1.8) 03/26/17 07:05 - Physical Exam Vitals and I&O: Vital Signs Temp 98.1 F 04/15/17 20:00 Pulse 83 04/15/17 20:00 Resp 20 04/15/17 20:00 BP 123/73 04/15/17 20:00 Pulse Ox 94 04/15/17 20:00 Intake & Output 04/15/17 04/15/17 04/16/17 06:59 18:59 06:59 Intake Total 300 1200 Balance 300 1200 Intake: Oral 300 1200 Other: # Voids 1 # Bowel Movements 0 1 Active Medications: Current Medications Acetaminophen (Tylenol) 650 mg PO Q6H PRN PRN Reason: Mild Pain/Headache/T above 101 Stop: 05/24/17 20:40 Al Hydrox/Mg Hydrox/Simethicone (Maalox) 30 ml PO Q6H PRN PRN Reason: Dyspepsia Stop: 05/24/17 20:40 Albuterol/Ipratropium (Duoneb Neb) 3 ml HHN Q4H PRN PRN Reason: Wheezing Stop: 05/24/17 21:28 Alprazolam (Xanax) 0.5 mg PO Q8HR BROOK PRN Reason: Protocol Stop: 05/25/17 04:59 Last Admin: 04/15/17 12:08 Dose: 0.5 mg Aspirin (Aspirin Chewable) 81 mg PO DAILY BROOK Stop: 05/25/17 08:59 Last Admin: 04/15/17 08:27 Dose: 81 mg Benztropine Mesylate (Cogentin) 0.5 mg PO DAILY BROOK Stop: 05/25/17 08:59 Last Admin: 04/15/17 08:28 Dose: 0.5 mg Chlorpromazine (Thorazine) 50 mg PO BID BROOK PRN Reason: Protocol Stop: 06/12/17 16:59 Last Admin: 04/15/17 17:31 Dose: 50 mg Citalopram Hydrobromide (Celexa) 20 mg PO DAILY BROOK PRN Reason: Protocol Stop: 05/25/17 08:59 Last Admin: 04/15/17 08:27 Dose: 20 mg Docusate Sodium (Colace) 200 mg PO DAILY BROOK Stop: 05/25/17 08:59 Last Admin: 04/15/17 08:26 Dose: 200 mg Lorazepam (Ativan) 1 mg PO Q6HR PRN; Protocol PRN Reason: Agitation Stop: 06/02/17 07:55 Last Admin: 04/14/17 16:05 Dose: 1 mg Magnesium Hydroxide (Milk Of Magnesia) 30 ml PO HS PRN PRN Reason: Constipation Stop: 05/24/17 20:40 Metoclopramide HCl (Reglan) 5 mg PO Q12HR BROOK Stop: 05/24/17 20:59 Last Admin: 04/15/17 08:26 Dose: 5 mg Pantoprazole Sodium (Protonix) 40 mg PO QAM BROOK Stop: 05/25/17 08:59 Last Admin: 04/15/17 08:28 Dose: 40 mg Quetiapine Fumarate (Seroquel) 50 mg PO DAILY BROOK PRN Reason: Protocol Stop: 05/31/17 08:59 Last Admin: 04/15/17 08:27 Dose: 50 mg Quetiapine Fumarate 300 mg/ (Quetiapine Fumarate 50 mg) 350 mg PO HS BROOK Stop: 06/11/17 20:59 Last Admin: 04/14/17 20:16 Dose: 350 mg Zolpidem Tartrate (Ambien) 5 mg PO HS PRN PRN Reason: Insomnia Stop: 06/02/17 07:57 Last Admin: 04/14/17 20:17 Dose: 5 mg General: demented, obese HEENT: NC/AT, PERRLA, EOMI, anicteric sclerae, throat clear Neck: Supple, No JVD, No thyromegaly, +2 carotid pulse wo bruit, No LAD Lungs: CTAB Cardiovascular: RRR, Normal S1, Normal S2, without murmur Abdomen: soft, non-tender, non-distended Extremities: clear Neurological: unable to follow command Internal Medicine Assmt/Plan - Assessment Assessment: 1.HTN. 2.GERD. 3.DEMENTIA. - Plan Plan: CONTINUE ON CURRENT MEDICATION AND DIET. Nutritional Asmnt/Malnutr-PDOC - Dietary Evaluation Malnutrition Findings (Please click <Entered> for more info): Nutritional Asmnt/Malnutrition Start: 03/30/17 16: 13 Text: Status: Complete Freq: Document 03/30/17 16:14 GSUN (Rec: 03/30/17 16:21 [email or web address] [email or web address]) Nutritional Asmnt/Malnutrition Patient General Information Nutritional Screening Moderate Risk Screening Diagnosis Unspecified psychosis, dementia moderate with psychotic features Pertinent Medical Hx/Surgical Hx Dementia, depression, GERD, DJD, obesity Subjective Information 77 year old male. Pt seen in wheelchair in rec room, asleep and unable to be woken up. Spoke to LEGAL ENTITY CONTROLLER in rec room, LEGAL ENTITY CONTROLLER reported pt has good appetite, no difficulties eating, denied nutritional concerns at this time. Pt appeared overweight, no muscle fat wasting noted. Avg PO intake 100% of meals since adm, meeting nutritional needs. [facility] Pertinent Medications Colace, Haldol, MOM, Reglan, Protonix, Seroquel Pertinent Labs Reviewed. Nutritional Hx/Data Height 1.78 m Height (Calculated Centimeters) 177.8 Current Weight (lbs) 92.986 kg Weight (Calculated Kilograms) 93.0 Weight (Calculated Grams) 31898.4 [place] Body Weight 166 Weight Status Overweight GI Symptoms Skin Integrity/Comment: Rajesh 17. Skin dryness. Current %PO Good (75-100%) Estimated Nutritional Goals Calories/Kcals/Kg IBW 166lb/75.5kg Kcals Calculated 1888-2265kcal (25-30kcal/kg) Protein Calculated 76g (1g/kg) Fluid: ml 1888-2265ml (1ml/kcal) Nutritional Problem 1. Problem Problem No nutritional problem at this time. Intervention/Recommendation Comments 1. Continue with current diet order. Avg PO intake is adequate. Expected Outcomes/Goals Expected Outcomes/Goals 1. PO intake continue to meet at least 75% of estimated nutritional needs.
--- NOTE | 2017-04-15 21:42 | Progress Notes ---
DATE: 04/15/2017 SUBJECTIVE: Chart reviewed and the patient interviewed. Also discussed the patient's condition with the staff and reviewed records and labs. The patient still has episodes of irritability and anger. The patient also is still demanding and he still gets combative when his demands not met. Also, still pacing up and down the unit with his wheelchair. Also, difficulty following directions. At the same time, the patient is slightly calmer than before and seems to be slightly easier to redirect him. ASSESSMENT: The patient is still psychotic. TREATMENT PLAN: Discussed with immigration case workermining manager issue and still difficulty finding a place for the patient. Also waiting for a couple of interviews for the patient from new places, hopefully they might accept him. At the same time, we will continue to work on his behavior modification and his impulse control, and we will continue to follow up. JOB# [id number]
[2017-04-16] MEDS: Pantoprazole 40 mg EC Tab PO SCH (08:33)
[2017-04-16] MEDS: Aspirin 81mg Chewable Tab PO SCH (08:34)
--- NOTE | 2017-04-16 16:43 | Internal Medicine Prog Note ---
Internal Medicine Subjective - Subjective Service Date: 04/16/17 Patient seen and examined:: with staff (he is doing better.) Patient is:: awake, non-verbal, in bed, confused Per staff patient has:: no adverse event Internal Medicine Objective - Results Result Diagrams: 03/30/17 07:15 03/30/17 07:15 Recent Labs: Laboratory Last Values WBC 12.6 Th/cmm (4.8-10.8) H 03/30/17 07:15 RBC 5.32 Mil/cmm (3.80-5.80) 03/30/17 07:15 Hgb 15.5 gm/dL (12-16) 03/30/17 07:15 Hct 46.2 % (41.0-60) 03/30/17 07:15 MCV 86.8 fl (80-99) 03/30/17 07:15 MCH 29.1 pg (27.0-31.0) 03/30/17 07:15 MCHC Differential 33.5 pg (28.0-36.0) 03/30/17 07:15 RDW 14.0 % (11.5-20.0) 03/30/17 07:15 Plt Count 215 Th/cmm (150-400) 03/30/17 07:15 MPV 8.0 fl 03/30/17 07:15 Neutrophils % 38.8 % (40.0-80.0) L 03/30/17 07:15 Band Neutrophils % 2 % (0-10) 03/26/17 07:05 Lymphocytes % 45.2 % (20.0-50.0) 03/30/17 07:15 Monocytes % 6.6 % (2.0-10.0) 03/30/17 07:15 Eosinophils % 9.1 % (0.0-5.0) H 03/30/17 07:15 Basophils % 0.3 % (0.0-2.0) 03/30/17 07:15 Neutrophils (Manual) 67 % (40-80) 03/26/17 07:05 Lymphocytes 23 % (20-50) 03/26/17 07:05 Monocytes 5 % (2-10) 03/26/17 07:05 Eosinophils 3 % (0-5) 03/26/17 07:05 Sodium 134 mEq/L (136-145) L 03/30/17 07:15 Potassium 4.0 mEq/L (3.5-5.1) 03/30/17 07:15 Chloride 101 mEq/L (98-107) 03/30/17 07:15 Carbon Dioxide 29.1 mEq/L (21.0-31.0) 03/30/17 07:15 Anion Gap 7.9 (7.0-16.0) 03/30/17 07:15 BUN 17 mg/dL (7-25) 03/30/17 07:15 Creatinine 0.6 mg/dL (0.7-1.3) L 03/30/17 07:15 Est GFR ( Amer) TNP 03/30/17 07:15 Est GFR (Non-Af Amer) TNP 03/30/17 07:15 BUN/Creatinine Ratio 28.3 03/30/17 07:15 Glucose 85 mg/dL (70-105) 03/30/17 07:15 POC Glucose 92 MG/DL (70 - 105) 04/08/17 06:16 Calcium 9.2 mg/dL (8.6-10.3) 03/30/17 07:15 Total Bilirubin 0.5 mg/dL (0.3-1.0) 03/26/17 07:05 AST 14 U/L (13-39) 03/26/17 07:05 ALT 11 U/L (7-52) 03/26/17 07:05 Alkaline Phosphatase 94 U/L (34-104) 03/26/17 07:05 Total Protein 7.0 gm/dL (6.0-8.3) 03/26/17 07:05 Albumin 4.2 gm/dL (4.2-5.5) 03/26/17 07:05 Globulin 2.8 gm/dL 03/26/17 07:05 Albumin/Globulin Ratio 1.5 (1.0-1.8) 03/26/17 07:05 - Physical Exam Vitals and I&O: Vital Signs Temp 97.9 F 04/16/17 06:45 Pulse 64 04/16/17 06:45 Resp 19 04/16/17 06:45 BP 109/59 04/16/17 06:45 Pulse Ox 96 04/16/17 06:45 Intake & Output 1004/16/17 04/16/17 18:59 06:59 18:59 Intake Total 1200 120 Balance 1200 120 Intake: Oral 1200 120 Other: # Voids 3 # Bowel Movements 1 Active Medications: Current Medications Acetaminophen (Tylenol) 650 mg PO Q6H PRN PRN Reason: Mild Pain/Headache/T above 101 Stop: 05/24/17 20:40 Al Hydrox/Mg Hydrox/Simethicone (Maalox) 30 ml PO Q6H PRN PRN Reason: Dyspepsia Stop: 05/24/17 20:40 Albuterol/Ipratropium (Duoneb Neb) 3 ml HHN Q4H PRN PRN Reason: Wheezing Stop: 05/24/17 21:28 Alprazolam (Xanax) 0.5 mg PO Q8HR BROOK PRN Reason: Protocol Stop: 05/25/17 04:59 Last Admin: 04/16/17 13:09 Dose: 0.5 mg Aspirin (Aspirin Chewable) 81 mg PO DAILY BROOK Stop: 05/25/17 08:59 Last Admin: 04/16/17 08:34 Dose: 81 mg Benztropine Mesylate (Cogentin) 0.5 mg PO DAILY BROOK Stop: 05/25/17 08:59 Last Admin: 04/16/17 08:33 Dose: 0.5 mg Chlorpromazine (Thorazine) 50 mg PO BID BROOK PRN Reason: Protocol Stop: 06/12/17 16:59 Last Admin: 04/16/17 08:32 Dose: 50 mg Citalopram Hydrobromide (Celexa) 20 mg PO DAILY BROOK PRN Reason: Protocol Stop: 05/25/17 08:59 Last Admin: 04/16/17 08:33 Dose: 20 mg Docusate Sodium (Colace) 200 mg PO DAILY BROOK Stop: 05/25/17 08:59 Last Admin: 04/16/17 08:34 Dose: 200 mg Lorazepam (Ativan) 1 mg PO Q6HR PRN; Protocol PRN Reason: Agitation Stop: 06/02/17 07:55 Last Admin: 04/14/17 16:05 Dose: 1 mg Magnesium Hydroxide (Milk Of Magnesia) 30 ml PO HS PRN PRN Reason: Constipation Stop: 05/24/17 20:40 Metoclopramide HCl (Reglan) 5 mg PO Q12HR BROOK Stop: 05/24/17 20:59 Last Admin: 04/16/17 08:34 Dose: 5 mg Pantoprazole Sodium (Protonix) 40 mg PO QAM BROOK Stop: 05/25/17 08:59 Last Admin: 04/16/17 08:33 Dose: 40 mg Quetiapine Fumarate (Seroquel) 50 mg PO DAILY BROOK PRN Reason: Protocol Stop: 05/31/17 08:59 Last Admin: 04/16/17 08:34 Dose: 50 mg Quetiapine Fumarate (Seroquel) 400 mg PO HS BROOK Stop: 06/11/17 20:59 Zolpidem Tartrate (Ambien) 5 mg PO HS PRN PRN Reason: Insomnia Stop: 06/02/17 07:57 Last Admin: 04/14/17 20:17 Dose: 5 mg General: demented, obese HEENT: NC/AT, PERRLA, EOMI, anicteric sclerae, throat clear Neck: Supple, No JVD, No thyromegaly, +2 carotid pulse wo bruit, No LAD Lungs: CTAB Cardiovascular: RRR, Normal S1, Normal S2, without murmur Abdomen: soft, non-tender, non-distended Extremities: clear Neurological: unable to follow command Internal Medicine Assmt/Plan - Assessment Assessment: 1.HTN. 2.GERD. 3.DEMENTIA. - Plan Plan: CONTINUE ON CURRENT MEDICATION AND DIET. Nutritional Asmnt/Malnutr-PDOC - Dietary Evaluation Malnutrition Findings (Please click <Entered> for more info): Nutritional Asmnt/Malnutrition Start: 03/30/17 16: 13 Text: Status: Complete Freq: Document 03/30/17 16:14 GSUN (Rec: 03/30/17 16:21 [email or web address] [email or web address]) Nutritional Asmnt/Malnutrition Patient General Information Nutritional Screening Moderate Risk Screening Diagnosis Unspecified psychosis, dementia moderate with psychotic features Pertinent Medical Hx/Surgical Hx Dementia, depression, GERD, DJD, obesity Subjective Information 77 year old male. Pt seen in wheelchair in rec room, asleep and unable to be woken up. Spoke to CERTIFIED CODER in rec room, CERTIFIED CODER reported pt has good appetite, no difficulties eating, denied nutritional concerns at this time. Pt appeared overweight, no muscle fat wasting noted. Avg PO intake 100% of meals since adm, meeting nutritional needs. [facility] Diet [facility]/ [facility] Pertinent Medications Colace, Haldol, MOM, Reglan, Protonix, Seroquel Pertinent Labs Reviewed. Nutritional Hx/Data Height 1.78 m Height (Calculated Centimeters) 177.8 Current Weight (lbs) 92.986 kg Weight (Calculated Kilograms) 93.0 Weight (Calculated Grams) 90404.4 [place] Body Weight 166 Weight Status Overweight GI Symptoms Skin Integrity/Comment: Rajesh 17. Skin dryness. Current %PO Good (75-100%) Estimated Nutritional Goals Calories/Kcals/Kg IBW 166lb/75.5kg Kcals Calculated 1888-2265kcal (25-30kcal/kg) Protein Calculated 76g (1g/kg) Fluid: ml 1888-2265ml (1ml/kcal) Nutritional Problem 1. Problem Problem No nutritional problem at this time. Intervention/Recommendation Comments 1. Continue with current diet order. Avg PO intake is adequate. Expected Outcomes/Goals Expected Outcomes/Goals 1. PO intake continue to meet at least 75% of estimated nutritional needs.
--- NOTE | 2017-04-16 21:59 | Progress Notes ---
DATE: 04/16/2017 SUBJECTIVE: Chart reviewed and the patient interviewed. Also discussed the patient's condition with the staff and reviewed records and labs. The patient continued to be in agitated and irritable mood, but slightly easier to redirect him. The patient also still needs lots of monitoring because of his aggressive behavior and is still provoking, hits others at times. He also is still confused and he is still disheveled. Also, during interview, the patient is confused and irritable and he is disheveled. ASSESSMENT: The patient is still confused and still has poor impulse control. TREATMENT PLAN: The patient is still having difficulty with his impulse control. We will increase Seroquel to 50 mg in the morning and 400 mg at bedtime. Also, continue working with home health care case manager and his conservator in regard to placement issue and we will continue to follow up. JOB# [id number]
[2017-04-17] MEDS: Aspirin 81mg Chewable Tab PO SCH (08:07)
[2017-04-17] MEDS: Pantoprazole 40 mg EC Tab PO SCH (08:07)
[2017-04-17] MEDS ORDERED: Haloperidol Lactate 5 mg/mL 1mL Vial ONE (15:48)
[2017-04-17] MEDS ORDERED: Haloperidol Lactate 5 mg/mL 1mL Vial IM ONE (16:00)
--- NOTE | 2017-04-17 19:19 | Progress Notes ---
DATE: 04/17/2017 SUBJECTIVE: Chart reviewed and the patient interviewed. Also discussed the patient's condition with the staff and reviewed records and labs. The patient is still confused and is still easily agitated and easily irritable. The patient also is still suspicious and paranoid. Also, still has episodes of irritability and anger and needs lots of redirections. He also still has mood swings. Otherwise, the patient is compliant with taking his medications with no side effects of medications. ASSESSMENT: The patient is still considered to be gravely disabled. TREATMENT PLAN: We will continue monitoring his behavior and his condition closely. Also, continue adjusting psychotropic medications and working on discharge plans. JOB# [id number]
--- NOTE | 2017-04-17 21:24 | Internal Medicine Prog Note ---
Internal Medicine Subjective - Subjective Service Date: 04/17/17 Patient seen and examined:: without staff Patient is:: awake, non-verbal, in bed, confused Per staff patient has:: no adverse event Internal Medicine Objective - Results Result Diagrams: 03/30/17 07:15 03/30/17 07:15 Recent Labs: Laboratory Last Values WBC 12.6 Th/cmm (4.8-10.8) H 03/30/17 07:15 RBC 5.32 Mil/cmm (3.80-5.80) 03/30/17 07:15 Hgb 15.5 gm/dL (12-16) 03/30/17 07:15 Hct 46.2 % (41.0-60) 03/30/17 07:15 MCV 86.8 fl (80-99) 03/30/17 07:15 MCH 29.1 pg (27.0-31.0) 03/30/17 07:15 MCHC Differential 33.5 pg (28.0-36.0) 03/30/17 07:15 RDW 14.0 % (11.5-20.0) 03/30/17 07:15 Plt Count 215 Th/cmm (150-400) 03/30/17 07:15 MPV 8.0 fl 03/30/17 07:15 Neutrophils % 38.8 % (40.0-80.0) L 03/30/17 07:15 Band Neutrophils % 2 % (0-10) 03/26/17 07:05 Lymphocytes % 45.2 % (20.0-50.0) 03/30/17 07:15 Monocytes % 6.6 % (2.0-10.0) 03/30/17 07:15 Eosinophils % 9.1 % (0.0-5.0) H 03/30/17 07:15 Basophils % 0.3 % (0.0-2.0) 03/30/17 07:15 Neutrophils (Manual) 67 % (40-80) 03/26/17 07:05 Lymphocytes 23 % (20-50) 03/26/17 07:05 Monocytes 5 % (2-10) 03/26/17 07:05 Eosinophils 3 % (0-5) 03/26/17 07:05 Sodium 134 mEq/L (136-145) L 03/30/17 07:15 Potassium 4.0 mEq/L (3.5-5.1) 03/30/17 07:15 Chloride 101 mEq/L (98-107) 03/30/17 07:15 Carbon Dioxide 29.1 mEq/L (21.0-31.0) 03/30/17 07:15 Anion Gap 7.9 (7.0-16.0) 03/30/17 07:15 BUN 17 mg/dL (7-25) 03/30/17 07:15 Creatinine 0.6 mg/dL (0.7-1.3) L 03/30/17 07:15 Est GFR ( Amer) TNP 03/30/17 07:15 Est GFR (Non-Af Amer) TNP 03/30/17 07:15 BUN/Creatinine Ratio 28.3 03/30/17 07:15 Glucose 85 mg/dL (70-105) 03/30/17 07:15 POC Glucose 92 MG/DL (70 - 105) 04/08/17 06:16 Calcium 9.2 mg/dL (8.6-10.3) 03/30/17 07:15 Total Bilirubin 0.5 mg/dL (0.3-1.0) 03/26/17 07:05 AST 14 U/L (13-39) 03/26/17 07:05 ALT 11 U/L (7-52) 03/26/17 07:05 Alkaline Phosphatase 94 U/L (34-104) 03/26/17 07:05 Total Protein 7.0 gm/dL (6.0-8.3) 03/26/17 07:05 Albumin 4.2 gm/dL (4.2-5.5) 03/26/17 07:05 Globulin 2.8 gm/dL 03/26/17 07:05 Albumin/Globulin Ratio 1.5 (1.0-1.8) 03/26/17 07:05 - Physical Exam Vitals and I&O: Vital Signs Temp 98 F 04/17/17 19:59 Pulse 88 04/17/17 20:26 Resp 20 04/17/17 20:26 BP 118/68 04/17/17 19:59 Pulse Ox 95 04/17/17 20:26 Intake & Output 04/17/17 04/17/17 04/18/17 06:59 18:59 06:59 Intake Total 120 1000 240 Balance 120 1000 240 Intake: Oral 120 1000 240 Other: # Voids 3 4 2 # Bowel Movements 0 Active Medications: Current Medications Acetaminophen (Tylenol) 650 mg PO Q6H PRN PRN Reason: Mild Pain/Headache/T above 101 Stop: 05/24/17 20:40 Al Hydrox/Mg Hydrox/Simethicone (Maalox) 30 ml PO Q6H PRN PRN Reason: Dyspepsia Stop: 05/24/17 20:40 Albuterol/Ipratropium (Duoneb Neb) 3 ml HHN Q4H PRN PRN Reason: Wheezing Stop: 05/24/17 21:28 Alprazolam (Xanax) 0.5 mg PO Q8HR BROOK PRN Reason: Protocol Stop: 05/25/17 04:59 Last Admin: 04/17/17 20:39 Dose: 0.5 mg Aspirin (Aspirin Chewable) 81 mg PO DAILY BROOK Stop: 05/25/17 08:59 Last Admin: 04/17/17 08:07 Dose: 81 mg Benztropine Mesylate (Cogentin) 0.5 mg PO DAILY BROOK Stop: 05/25/17 08:59 Last Admin: 04/17/17 08:07 Dose: 0.5 mg Chlorpromazine (Thorazine) 50 mg PO BID RBOOK PRN Reason: Protocol Stop: 06/12/17 16:59 Last Admin: 04/17/17 16:31 Dose: Not Given Citalopram Hydrobromide (Celexa) 20 mg PO DAILY BROOK PRN Reason: Protocol Stop: 05/25/17 08:59 Last Admin: 04/17/17 08:07 Dose: 20 mg Docusate Sodium (Colace) 200 mg PO DAILY BROOK Stop: 05/25/17 08:59 Last Admin: 04/17/17 08:07 Dose: 200 mg Lorazepam (Ativan) 1 mg PO Q6HR PRN; Protocol PRN Reason: Agitation Stop: 06/02/17 07:55 Last Admin: 04/14/17 16:05 Dose: 1 mg Magnesium Hydroxide (Milk Of Magnesia) 30 ml PO HS PRN PRN Reason: Constipation Stop: 05/24/17 20:40 Metoclopramide HCl (Reglan) 5 mg PO Q12HR BROOK Stop: 05/24/17 20:59 Last Admin: 04/17/17 20:40 Dose: 5 mg Pantoprazole Sodium (Protonix) 40 mg PO QAM BROOK Stop: 05/25/17 08:59 Last Admin: 04/17/17 08:07 Dose: 40 mg Quetiapine Fumarate (Seroquel) 50 mg PO DAILY BROOK PRN Reason: Protocol Stop: 05/31/17 08:59 Last Admin: 04/17/17 08:07 Dose: 50 mg Quetiapine Fumarate (Seroquel) 400 mg PO HS BROOK Stop: 06/11/17 20:59 Last Admin: 04/17/17 20:39 Dose: 400 mg Zolpidem Tartrate (Ambien) 5 mg PO HS PRN PRN Reason: Insomnia Stop: 06/02/17 07:57 Last Admin: 04/14/17 20:17 Dose: 5 mg General: demented, obese HEENT: NC/AT, PERRLA, EOMI, anicteric sclerae, throat clear Neck: Supple, No JVD, No thyromegaly, +2 carotid pulse wo bruit, No LAD Lungs: CTAB Cardiovascular: RRR, Normal S1, Normal S2, without murmur Abdomen: soft, non-tender, non-distended Extremities: clear Neurological: unable to follow command Internal Medicine Assmt/Plan - Assessment Assessment: 1.HTN. 2.GERD. 3.DEMENTIA. - Plan Plan: CONTINUE ON CURRENT MEDICATION AND DIET. Nutritional Asmnt/Malnutr-PDOC - Dietary Evaluation Malnutrition Findings (Please click <Entered> for more info): Nutritional Asmnt/Malnutrition Start: 03/30/17 16: 13 Text: Status: Complete Freq: Document 03/30/17 16:14 GSUN (Rec: 03/30/17 16:21 [email or web address] [email or web address]) Nutritional Asmnt/Malnutrition Patient General Information Nutritional Screening Moderate Risk Screening Diagnosis Unspecified psychosis, dementia moderate with psychotic features Pertinent Medical Hx/Surgical Hx Dementia, depression, GERD, DJD, obesity Subjective Information 77 year old male. Pt seen in wheelchair in rec room, asleep and unable to be woken up. Spoke to VENDING MACHINE ATTENDANT in rec room, VENDING MACHINE ATTENDANT reported pt has good appetite, no difficulties eating, denied nutritional concerns at this time. Pt appeared overweight, no muscle fat wasting noted. Avg PO intake 100% of meals since adm, meeting nutritional needs. [facility] Pertinent Medications Colace, Haldol, MOM, Reglan, Protonix, Seroquel Pertinent Labs Reviewed. Nutritional Hx/Data Height 1.78 m Height (Calculated Centimeters) 177.8 Current Weight (lbs) 92.986 kg Weight (Calculated Kilograms) 93.0 Weight (Calculated Grams) 36061.4 [place] Body Weight 166 Weight Status Overweight GI Symptoms Skin Integrity/Comment: Rajesh 17. Skin dryness. Current %PO Good (75-100%) Estimated Nutritional Goals Calories/Kcals/Kg IBW 166lb/75.5kg Kcals Calculated 1888-2265kcal (25-30kcal/kg) Protein Calculated 76g (1g/kg) Fluid: ml 1888-2265ml (1ml/kcal) Nutritional Problem 1. Problem Problem No nutritional problem at this time. Intervention/Recommendation Comments 1. Continue with current diet order. Avg PO intake is adequate. Expected Outcomes/Goals Expected Outcomes/Goals 1. PO intake continue to meet at least 75% of estimated nutritional needs.
[2017-04-18] MEDS: Pantoprazole 40 mg EC Tab PO SCH (08:08)
[2017-04-18] MEDS: Aspirin 81mg Chewable Tab PO SCH (08:08)
--- NOTE | 2017-04-18 14:36 | Internal Medicine Prog Note ---
Internal Medicine Subjective - Subjective Service Date: 04/18/17 Patient seen and examined:: with staff Patient is:: awake, non-verbal, in bed, confused Per staff patient has:: no adverse event Internal Medicine Objective - Results Result Diagrams: 03/30/17 07:15 03/30/17 07:15 Recent Labs: Laboratory Last Values WBC 12.6 Th/cmm (4.8-10.8) H 03/30/17 07:15 RBC 5.32 Mil/cmm (3.80-5.80) 03/30/17 07:15 Hgb 15.5 gm/dL (12-16) 03/30/17 07:15 Hct 46.2 % (41.0-60) 03/30/17 07:15 MCV 86.8 fl (80-99) 03/30/17 07:15 MCH 29.1 pg (27.0-31.0) 03/30/17 07:15 MCHC Differential 33.5 pg (28.0-36.0) 03/30/17 07:15 RDW 14.0 % (11.5-20.0) 03/30/17 07:15 Plt Count 215 Th/cmm (150-400) 03/30/17 07:15 MPV 8.0 fl 03/30/17 07:15 Neutrophils % 38.8 % (40.0-80.0) L 03/30/17 07:15 Band Neutrophils % 2 % (0-10) 03/26/17 07:05 Lymphocytes % 45.2 % (20.0-50.0) 03/30/17 07:15 Monocytes % 6.6 % (2.0-10.0) 03/30/17 07:15 Eosinophils % 9.1 % (0.0-5.0) H 03/30/17 07:15 Basophils % 0.3 % (0.0-2.0) 03/30/17 07:15 Neutrophils (Manual) 67 % (40-80) 03/26/17 07:05 Lymphocytes 23 % (20-50) 03/26/17 07:05 Monocytes 5 % (2-10) 03/26/17 07:05 Eosinophils 3 % (0-5) 03/26/17 07:05 Sodium 134 mEq/L (136-145) L 03/30/17 07:15 Potassium 4.0 mEq/L (3.5-5.1) 03/30/17 07:15 Chloride 101 mEq/L (98-107) 03/30/17 07:15 Carbon Dioxide 29.1 mEq/L (21.0-31.0) 03/30/17 07:15 Anion Gap 7.9 (7.0-16.0) 03/30/17 07:15 BUN 17 mg/dL (7-25) 03/30/17 07:15 Creatinine 0.6 mg/dL (0.7-1.3) L 03/30/17 07:15 Est GFR ( Amer) TNP 03/30/17 07:15 Est GFR (Non-Af Amer) TNP 03/30/17 07:15 BUN/Creatinine Ratio 28.3 03/30/17 07:15 Glucose 85 mg/dL (70-105) 03/30/17 07:15 POC Glucose 92 MG/DL (70 - 105) 04/08/17 06:16 Calcium 9.2 mg/dL (8.6-10.3) 03/30/17 07:15 Total Bilirubin 0.5 mg/dL (0.3-1.0) 03/26/17 07:05 AST 14 U/L (13-39) 03/26/17 07:05 ALT 11 U/L (7-52) 03/26/17 07:05 Alkaline Phosphatase 94 U/L (34-104) 03/26/17 07:05 Total Protein 7.0 gm/dL (6.0-8.3) 03/26/17 07:05 Albumin 4.2 gm/dL (4.2-5.5) 03/26/17 07:05 Globulin 2.8 gm/dL 03/26/17 07:05 Albumin/Globulin Ratio 1.5 (1.0-1.8) 03/26/17 07:05 - Physical Exam Vitals and I&O: Vital Signs Temp 97.4 F 04/18/17 07:31 Pulse 86 04/18/17 07:31 Resp 20 04/18/17 07:31 BP 136/79 04/18/17 07:31 Pulse Ox 97 04/18/17 07:31 Intake & Output 04/17/17 04/18/17 04/18/17 18:59 06:59 18:59 Intake Total 1000 240 240 Balance 1000 240 240 Intake: Oral 1000 240 240 Other: # Voids 4 2 2 # Bowel Movements 0 Active Medications: Current Medications Acetaminophen (Tylenol) 650 mg PO Q6H PRN PRN Reason: Mild Pain/Headache/T above 101 Stop: 05/24/17 20:40 Al Hydrox/Mg Hydrox/Simethicone (Maalox) 30 ml PO Q6H PRN PRN Reason: Dyspepsia Stop: 05/24/17 20:40 Albuterol/Ipratropium (Duoneb Neb) 3 ml HHN Q4H PRN PRN Reason: Wheezing Stop: 05/24/17 21:28 Alprazolam (Xanax) 0.5 mg PO Q8HR BROOK PRN Reason: Protocol Stop: 05/25/17 04:59 Last Admin: 04/18/17 05:48 Dose: 0.5 mg Aspirin (Aspirin Chewable) 81 mg PO DAILY BROOK Stop: 05/25/17 08:59 Last Admin: 04/18/17 08:08 Dose: 81 mg Benztropine Mesylate (Cogentin) 0.5 mg PO DAILY BROOK Stop: 05/25/17 08:59 Last Admin: 04/18/17 08:09 Dose: 0.5 mg Chlorpromazine (Thorazine) 50 mg PO BID BROOK PRN Reason: Protocol Stop: 06/12/17 16:59 Last Admin: 04/18/17 08:08 Dose: 50 mg Citalopram Hydrobromide (Celexa) 20 mg PO DAILY BROOK PRN Reason: Protocol Stop: 05/25/17 08:59 Last Admin: 04/18/17 08:09 Dose: 20 mg Docusate Sodium (Colace) 200 mg PO DAILY BROOK Stop: 05/25/17 08:59 Last Admin: 04/18/17 08:07 Dose: 200 mg Lorazepam (Ativan) 1 mg PO Q6HR PRN; Protocol PRN Reason: Agitation Stop: 06/02/17 07:55 Last Admin: 04/14/17 16:05 Dose: 1 mg Magnesium Hydroxide (Milk Of Magnesia) 30 ml PO HS PRN PRN Reason: Constipation Stop: 05/24/17 20:40 Metoclopramide HCl (Reglan) 5 mg PO Q12HR BROOK Stop: 05/24/17 20:59 Last Admin: 04/18/17 08:08 Dose: 5 mg Pantoprazole Sodium (Protonix) 40 mg PO QAM BROOK Stop: 05/25/17 08:59 Last Admin: 04/18/17 08:08 Dose: 40 mg Quetiapine Fumarate (Seroquel) 50 mg PO DAILY BROOK PRN Reason: Protocol Stop: 05/31/17 08:59 Last Admin: 04/18/17 08:09 Dose: 50 mg Quetiapine Fumarate (Seroquel) 400 mg PO HS BROOK Stop: 06/11/17 20:59 Last Admin: 04/17/17 20:39 Dose: 400 mg Zolpidem Tartrate (Ambien) 5 mg PO HS PRN PRN Reason: Insomnia Stop: 06/02/17 07:57 Last Admin: 04/14/17 20:17 Dose: 5 mg General: demented, obese HEENT: NC/AT, PERRLA, EOMI, anicteric sclerae, throat clear Neck: Supple, No JVD, No thyromegaly, +2 carotid pulse wo bruit, No LAD Lungs: CTAB Cardiovascular: RRR, Normal S1, Normal S2, without murmur Abdomen: soft, non-tender, non-distended Extremities: clear Neurological: unable to follow command Internal Medicine Assmt/Plan - Assessment Assessment: 1.HTN. 2.GERD. 3.DEMENTIA. - Plan Plan: CONTINUE ON CURRENT MEDICATION AND DIET. Nutritional Asmnt/Malnutr-PDOC - Dietary Evaluation Malnutrition Findings (Please click <Entered> for more info): Nutritional Asmnt/Malnutrition Start: 03/30/17 16: 13 Text: Status: Complete Freq: Document 03/30/17 16:14 GSUN (Rec: 03/30/17 16:21 GSUN [email or web address]) Nutritional Asmnt/Malnutrition Patient General Information Nutritional Screening Moderate Risk Screening Diagnosis Unspecified psychosis, dementia moderate with psychotic features Pertinent Medical Hx/Surgical Hx Dementia, depression, GERD, DJD, obesity Subjective Information 77 year old male. Pt seen in wheelchair in rec room, asleep and unable to be woken up. Spoke to SIZE MAKER in rec room, SIZE MAKER reported pt has good appetite, no difficulties eating, denied nutritional concerns at this time. Pt appeared overweight, no muscle fat wasting noted. Avg PO intake 100% of meals since adm, meeting nutritional needs. Current Diet Order/ Nutrition Support Mech soft chopped. Pertinent Medications Colace, Haldol, MOM, Reglan, Protonix, Seroquel Pertinent Labs Reviewed. Nutritional Hx/Data Height 1.78 m Height (Calculated Centimeters) 177.8 Current Weight (lbs) 92.986 kg Weight (Calculated Kilograms) 93.0 Weight (Calculated Grams) 55688.4 [place] Body Weight 166 Weight Status Overweight GI Symptoms Skin Integrity/Comment: Rajesh 17. Skin dryness. Current %PO Good (75-100%) Estimated Nutritional Goals Calories/Kcals/Kg IBW 166lb/75.5kg Kcals Calculated 1888-2265kcal (25-30kcal/kg) Protein Calculated 76g (1g/kg) Fluid: ml 1888-2265ml (1ml/kcal) Nutritional Problem 1. Problem Problem No nutritional problem at this time. Intervention/Recommendation Comments 1. Continue with current diet order. Avg PO intake is adequate. Expected Outcomes/Goals Expected Outcomes/Goals 1. PO intake continue to meet at least 75% of estimated nutritional needs.
[2017-04-19] MEDS: Aspirin 81mg Chewable Tab PO SCH (08:24)
[2017-04-19] MEDS: Pantoprazole 40 mg EC Tab PO SCH (08:24)
[2017-04-19] MEDS ORDERED: Haloperidol Lactate 5 mg/mL 1mL Vial IM PRN (13:33)
[2017-04-19] MEDS ORDERED: Haloperidol Lactate 5 mg/mL 1mL Vial ONE (13:37)
[2017-04-19] MEDS ORDERED: Haloperidol Lactate 5 mg/mL 1mL Vial IM ONE (13:50)
--- NOTE | 2017-04-19 20:38 | Internal Medicine Prog Note ---
Internal Medicine Subjective - Subjective Service Date: 04/19/17 Patient seen and examined:: without staff Patient is:: awake, non-verbal, in bed, confused Per staff patient has:: no adverse event Internal Medicine Objective - Results Result Diagrams: 03/30/17 07:15 03/30/17 07:15 Recent Labs: Laboratory Last Values WBC 12.6 Th/cmm (4.8-10.8) H 03/30/17 07:15 RBC 5.32 Mil/cmm (3.80-5.80) 03/30/17 07:15 Hgb 15.5 gm/dL (12-16) 03/30/17 07:15 Hct 46.2 % (41.0-60) 03/30/17 07:15 MCV 86.8 fl (80-99) 03/30/17 07:15 MCH 29.1 pg (27.0-31.0) 03/30/17 07:15 MCHC Differential 33.5 pg (28.0-36.0) 03/30/17 07:15 RDW 14.0 % (11.5-20.0) 03/30/17 07:15 Plt Count 215 Th/cmm (150-400) 03/30/17 07:15 MPV 8.0 fl 03/30/17 07:15 Neutrophils % 38.8 % (40.0-80.0) L 03/30/17 07:15 Band Neutrophils % 2 % (0-10) 03/26/17 07:05 Lymphocytes % 45.2 % (20.0-50.0) 03/30/17 07:15 Monocytes % 6.6 % (2.0-10.0) 03/30/17 07:15 Eosinophils % 9.1 % (0.0-5.0) H 03/30/17 07:15 Basophils % 0.3 % (0.0-2.0) 03/30/17 07:15 Neutrophils (Manual) 67 % (40-80) 03/26/17 07:05 Lymphocytes 23 % (20-50) 03/26/17 07:05 Monocytes 5 % (2-10) 03/26/17 07:05 Eosinophils 3 % (0-5) 03/26/17 07:05 Sodium 134 mEq/L (136-145) L 03/30/17 07:15 Potassium 4.0 mEq/L (3.5-5.1) 03/30/17 07:15 Chloride 101 mEq/L (98-107) 03/30/17 07:15 Carbon Dioxide 29.1 mEq/L (21.0-31.0) 03/30/17 07:15 Anion Gap 7.9 (7.0-16.0) 03/30/17 07:15 BUN 17 mg/dL (7-25) 03/30/17 07:15 Creatinine 0.6 mg/dL (0.7-1.3) L 03/30/17 07:15 Est GFR ( Amer) TNP 03/30/17 07:15 Est GFR (Non-Af Amer) TNP 03/30/17 07:15 BUN/Creatinine Ratio 28.3 03/30/17 07:15 Glucose 85 mg/dL (70-105) 03/30/17 07:15 POC Glucose 92 MG/DL (70 - 105) 04/08/17 06:16 Calcium 9.2 mg/dL (8.6-10.3) 03/30/17 07:15 Total Bilirubin 0.5 mg/dL (0.3-1.0) 03/26/17 07:05 AST 14 U/L (13-39) 03/26/17 07:05 ALT 11 U/L (7-52) 03/26/17 07:05 Alkaline Phosphatase 94 U/L (34-104) 03/26/17 07:05 Total Protein 7.0 gm/dL (6.0-8.3) 03/26/17 07:05 Albumin 4.2 gm/dL (4.2-5.5) 03/26/17 07:05 Globulin 2.8 gm/dL 03/26/17 07:05 Albumin/Globulin Ratio 1.5 (1.0-1.8) 03/26/17 07:05 - Physical Exam Vitals and I&O: Vital Signs Temp 98 F 04/19/17 20:04 Pulse 95 04/19/17 20:04 Resp 18 04/19/17 20:04 BP 155/84 04/19/17 20:04 Pulse Ox 95 04/19/17 20:04 Intake & Output 04/19/17 04/19/17 04/20/17 06:59 18:59 06:59 Intake Total 120 1320 Balance 120 1320 Intake: Oral 120 1320 Other: # Voids 3 3 # Bowel Movements 0 Active Medications: Current Medications Acetaminophen (Tylenol) 650 mg PO Q6H PRN PRN Reason: Mild Pain/Headache/T above 101 Stop: 05/24/17 20:40 Al Hydrox/Mg Hydrox/Simethicone (Maalox) 30 ml PO Q6H PRN PRN Reason: Dyspepsia Stop: 05/24/17 20:40 Albuterol/Ipratropium (Duoneb Neb) 3 ml HHN Q4H PRN PRN Reason: Wheezing Stop: 05/24/17 21:28 Alprazolam (Xanax) 0.5 mg PO Q8HR BROOK PRN Reason: Protocol Stop: 05/25/17 04:59 Last Admin: 04/19/17 13:20 Dose: 0.5 mg Aspirin (Aspirin Chewable) 81 mg PO DAILY BROOK Stop: 05/25/17 08:59 Last Admin: 04/19/17 08:24 Dose: 81 mg Benztropine Mesylate (Cogentin) 0.5 mg PO DAILY BROOK Stop: 05/25/17 08:59 Last Admin: 04/19/17 08:24 Dose: 0.5 mg Chlorpromazine (Thorazine) 50 mg PO BID BROOK PRN Reason: Protocol Stop: 06/12/17 16:59 Last Admin: 04/19/17 17:44 Dose: 50 mg Citalopram Hydrobromide (Celexa) 20 mg PO DAILY BROOK PRN Reason: Protocol Stop: 05/25/17 08:59 Last Admin: 04/19/17 08:24 Dose: 20 mg Docusate Sodium (Colace) 200 mg PO DAILY BROOK Stop: 05/25/17 08:59 Last Admin: 04/19/17 08:25 Dose: 200 mg Lorazepam (Ativan) 1 mg PO Q6HR PRN; Protocol PRN Reason: Agitation Stop: 06/02/17 07:55 Last Admin: 04/19/17 09:33 Dose: 1 mg Magnesium Hydroxide (Milk Of Magnesia) 30 ml PO HS PRN PRN Reason: Constipation Stop: 05/24/17 20:40 Metoclopramide HCl (Reglan) 5 mg PO Q12HR BROOK Stop: 05/24/17 20:59 Last Admin: 04/19/17 08:25 Dose: 5 mg Pantoprazole Sodium (Protonix) 40 mg PO QAM BROOK Stop: 05/25/17 08:59 Last Admin: 04/19/17 08:24 Dose: 40 mg Quetiapine Fumarate (Seroquel) 50 mg PO DAILY BROOK PRN Reason: Protocol Stop: 05/31/17 08:59 Last Admin: 04/19/17 08:25 Dose: 50 mg Quetiapine Fumarate (Seroquel) 400 mg PO HS BROOK Stop: 06/11/17 20:59 Last Admin: 04/18/17 21:09 Dose: Not Given Zolpidem Tartrate (Ambien) 5 mg PO HS PRN PRN Reason: Insomnia Stop: 06/02/17 07:57 Last Admin: 04/14/17 20:17 Dose: 5 mg General: demented, obese HEENT: NC/AT, PERRLA, EOMI, anicteric sclerae, throat clear Neck: Supple, No JVD, No thyromegaly, +2 carotid pulse wo bruit, No LAD Lungs: CTAB Cardiovascular: RRR, Normal S1, Normal S2, without murmur Abdomen: soft, non-tender, non-distended Extremities: clear Neurological: unable to follow command Internal Medicine Assmt/Plan - Assessment Assessment: 1.HTN. 2.GERD. 3.DEMENTIA. - Plan Plan: CONTINUE ON CURRENT MEDICATION AND DIET. Nutritional Asmnt/Malnutr-PDOC - Dietary Evaluation Malnutrition Findings (Please click <Entered> for more info): Nutritional Asmnt/Malnutrition Start: 03/30/17 16: 13 Text: Status: Complete Freq: Document 03/30/17 16:14 GSUN (Rec: 03/30/17 16:21 [email or web address] [email or web address]) Nutritional Asmnt/Malnutrition Patient General Information Nutritional Screening Moderate Risk Screening Diagnosis Unspecified psychosis, dementia moderate with psychotic features Pertinent Medical Hx/Surgical Hx Dementia, depression, GERD, DJD, obesity Subjective Information 77 year old male. Pt seen in wheelchair in rec room, asleep and unable to be woken up. Spoke to POPULATION GENETICIST in rec room, POPULATION GENETICIST reported pt has good appetite, no difficulties eating, denied nutritional concerns at this time. Pt appeared overweight, no muscle fat wasting noted. Avg PO intake 100% of meals since adm, meeting nutritional needs. [facility] Pertinent Medications Colace, Haldol, MOM, Reglan, Protonix, Seroquel Pertinent Labs Reviewed. Nutritional Hx/Data Height 1.78 m Height (Calculated Centimeters) 177.8 Current Weight (lbs) 92.986 kg Weight (Calculated Kilograms) 93.0 Weight (Calculated Grams) 89104.4 [place] Body Weight 166 Weight Status Overweight GI Symptoms Skin Integrity/Comment: Rajesh 17. Skin dryness. Current %PO Good (75-100%) Estimated Nutritional Goals Calories/Kcals/Kg IBW 166lb/75.5kg Kcals Calculated 1888-2265kcal (25-30kcal/kg) Protein Calculated 76g (1g/kg) Fluid: ml 1888-2265ml (1ml/kcal) Nutritional Problem 1. Problem Problem No nutritional problem at this time. Intervention/Recommendation Comments 1. Continue with current diet order. Avg PO intake is adequate. Expected Outcomes/Goals Expected Outcomes/Goals 1. PO intake continue to meet at least 75% of estimated nutritional needs.
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
--- NOTE | 2017-04-20 02:00 | Progress Notes ---
DATE: 04/19/2017 Case was discussed with staff of the patient, reviewed records. The patient is forgetting that he is taking medication and getting agitated. Continues to be confused, easily agitated, easily irritable, unpredictable, impulsive, paranoid. He is compliant with the medication with no side effects, no sedation, no nausea, no extrapyramidal symptoms. We will continue to work with the patient in group therapy, milieu therapy, adjust the medication as needed. JOB# [id number]
[2017-04-20] MEDS: Pantoprazole 40 mg EC Tab PO SCH (09:48)
[2017-04-20] MEDS: Aspirin 81mg Chewable Tab PO SCH (09:49)
--- NOTE | 2017-04-20 18:57 | Internal Medicine Prog Note ---
Internal Medicine Subjective - Subjective Service Date: 04/20/17 Patient seen and examined:: without staff (HE IS DOING BETTER.) Patient is:: awake, non-verbal, in bed, confused Per staff patient has:: no adverse event Internal Medicine Objective - Results Result Diagrams: 03/30/17 07:15 03/30/17 07:15 Recent Labs: Laboratory Last Values WBC 12.6 Th/cmm (4.8-10.8) H 03/30/17 07:15 RBC 5.32 Mil/cmm (3.80-5.80) 03/30/17 07:15 Hgb 15.5 gm/dL (12-16) 03/30/17 07:15 Hct 46.2 % (41.0-60) 03/30/17 07:15 MCV 86.8 fl (80-99) 03/30/17 07:15 MCH 29.1 pg (27.0-31.0) 03/30/17 07:15 MCHC Differential 33.5 pg (28.0-36.0) 03/30/17 07:15 RDW 14.0 % (11.5-20.0) 03/30/17 07:15 Plt Count 215 Th/cmm (150-400) 03/30/17 07:15 MPV 8.0 fl 03/30/17 07:15 Neutrophils % 38.8 % (40.0-80.0) L 03/30/17 07:15 Band Neutrophils % 2 % (0-10) 03/26/17 07:05 Lymphocytes % 45.2 % (20.0-50.0) 03/30/17 07:15 Monocytes % 6.6 % (2.0-10.0) 03/30/17 07:15 Eosinophils % 9.1 % (0.0-5.0) H 03/30/17 07:15 Basophils % 0.3 % (0.0-2.0) 03/30/17 07:15 Neutrophils (Manual) 67 % (40-80) 03/26/17 07:05 Lymphocytes 23 % (20-50) 03/26/17 07:05 Monocytes 5 % (2-10) 03/26/17 07:05 Eosinophils 3 % (0-5) 03/26/17 07:05 Sodium 134 mEq/L (136-145) L 03/30/17 07:15 Potassium 4.0 mEq/L (3.5-5.1) 03/30/17 07:15 Chloride 101 mEq/L (98-107) 03/30/17 07:15 Carbon Dioxide 29.1 mEq/L (21.0-31.0) 03/30/17 07:15 Anion Gap 7.9 (7.0-16.0) 03/30/17 07:15 BUN 17 mg/dL (7-25) 03/30/17 07:15 Creatinine 0.6 mg/dL (0.7-1.3) L 03/30/17 07:15 Est GFR ( Amer) TNP 03/30/17 07:15 Est GFR (Non-Af Amer) TNP 03/30/17 07:15 BUN/Creatinine Ratio 28.3 03/30/17 07:15 Glucose 85 mg/dL (70-105) 03/30/17 07:15 POC Glucose 92 MG/DL (70 - 105) 04/08/17 06:16 Calcium 9.2 mg/dL (8.6-10.3) 03/30/17 07:15 Total Bilirubin 0.5 mg/dL (0.3-1.0) 03/26/17 07:05 AST 14 U/L (13-39) 03/26/17 07:05 ALT 11 U/L (7-52) 03/26/17 07:05 Alkaline Phosphatase 94 U/L (34-104) 03/26/17 07:05 Total Protein 7.0 gm/dL (6.0-8.3) 03/26/17 07:05 Albumin 4.2 gm/dL (4.2-5.5) 03/26/17 07:05 Globulin 2.8 gm/dL 03/26/17 07:05 Albumin/Globulin Ratio 1.5 (1.0-1.8) 03/26/17 07:05 - Physical Exam Vitals and I&O: Vital Signs Temp 98.2 F 04/20/17 18:22 Pulse 71 04/20/17 18:22 Resp 18 04/20/17 18:22 BP 115/69 04/20/17 18:22 Pulse Ox 95 04/20/17 18:22 Intake & Output 1004/20/17 04/20/17 18:59 06:59 18:59 Intake Total 1380 950 Balance 1380 950 Intake: Oral 1380 950 Other: # Voids 1 4 # Bowel Movements 0 1 Active Medications: Current Medications Acetaminophen (Tylenol) 650 mg PO Q6H PRN PRN Reason: Mild Pain/Headache/T above 101 Stop: 05/24/17 20:40 Al Hydrox/Mg Hydrox/Simethicone (Maalox) 30 ml PO Q6H PRN PRN Reason: Dyspepsia Stop: 05/24/17 20:40 Albuterol/Ipratropium (Duoneb Neb) 3 ml HHN Q4H PRN PRN Reason: Wheezing Stop: 05/24/17 21:28 Alprazolam (Xanax) 0.5 mg PO Q8HR BROOK PRN Reason: Protocol Stop: 05/25/17 04:59 Last Admin: 04/20/17 13:07 Dose: 0.5 mg Aspirin (Aspirin Chewable) 81 mg PO DAILY BROOK Stop: 05/25/17 08:59 Last Admin: 04/20/17 09:49 Dose: 81 mg Benztropine Mesylate (Cogentin) 0.5 mg PO DAILY BROOK Stop: 05/25/17 08:59 Last Admin: 04/20/17 09:49 Dose: 0.5 mg Chlorpromazine (Thorazine) 50 mg PO BID BROOK PRN Reason: Protocol Stop: 06/12/17 16:59 Last Admin: 04/20/17 17:21 Dose: 50 mg Citalopram Hydrobromide (Celexa) 20 mg PO DAILY BROOK PRN Reason: Protocol Stop: 05/25/17 08:59 Last Admin: 04/20/17 09:49 Dose: 20 mg Docusate Sodium (Colace) 200 mg PO DAILY BROOK Stop: 05/25/17 08:59 Last Admin: 04/20/17 09:49 Dose: 200 mg Lorazepam (Ativan) 1 mg PO Q6HR PRN; Protocol PRN Reason: Agitation Stop: 06/02/17 07:55 Last Admin: 04/19/17 09:33 Dose: 1 mg Magnesium Hydroxide (Milk Of Magnesia) 30 ml PO HS PRN PRN Reason: Constipation Stop: 05/24/17 20:40 Metoclopramide HCl (Reglan) 5 mg PO Q12HR BROOK Stop: 05/24/17 20:59 Last Admin: 04/20/17 09:49 Dose: 5 mg Pantoprazole Sodium (Protonix) 40 mg PO QAM BROOK Stop: 05/25/17 08:59 Last Admin: 04/20/17 09:48 Dose: 40 mg Quetiapine Fumarate (Seroquel) 50 mg PO DAILY BROOK PRN Reason: Protocol Stop: 05/31/17 08:59 Last Admin: 04/20/17 09:48 Dose: 50 mg Quetiapine Fumarate (Seroquel) 400 mg PO HS BROOK Stop: 06/11/17 20:59 Last Admin: 04/19/17 20:50 Dose: 400 mg Zolpidem Tartrate (Ambien) 5 mg PO HS PRN PRN Reason: Insomnia Stop: 06/02/17 07:57 Last Admin: 04/14/17 20:17 Dose: 5 mg General: demented, obese HEENT: NC/AT, PERRLA, EOMI, anicteric sclerae, throat clear Neck: Supple, No JVD, No thyromegaly, +2 carotid pulse wo bruit, No LAD Lungs: CTAB Cardiovascular: RRR, Normal S1, Normal S2, without murmur Abdomen: soft, non-tender, non-distended Extremities: clear Neurological: unable to follow command Internal Medicine Assmt/Plan - Assessment Assessment: 1.HTN. 2.GERD. 3.DEMENTIA. - Plan Plan: CONTINUE ON CURRENT MEDICATION AND DIET. Nutritional Asmnt/Malnutr-PDOC - Dietary Evaluation Malnutrition Findings (Please click <Entered> for more info): Nutritional Asmnt/Malnutrition Start: 03/30/17 16: 13 Text: Status: Complete Freq: Document 03/30/17 16:14 GSUN (Rec: 03/30/17 16:21 [email or web address] [email or web address]) Nutritional Asmnt/Malnutrition Patient General Information Nutritional Screening Moderate Risk Screening Diagnosis Unspecified psychosis, dementia moderate with psychotic features Pertinent Medical Hx/Surgical Hx Dementia, depression, GERD, DJD, obesity Subjective Information 77 year old male. Pt seen in wheelchair in rec room, asleep and unable to be woken up. Spoke to MH TEACHER in rec room, MH TEACHER reported pt has good appetite, no difficulties eating, denied nutritional concerns at this time. Pt appeared overweight, no muscle fat wasting noted. Avg PO intake 100% of meals since adm, meeting nutritional needs. [facility] Pertinent Medications Colace, Haldol, MOM, Reglan, Protonix, Seroquel Pertinent Labs Reviewed. Nutritional Hx/Data Height 1.78 m Height (Calculated Centimeters) 177.8 Current Weight (lbs) 92.986 kg Weight (Calculated Kilograms) 93.0 Weight (Calculated Grams) 97943.4 [place] Body Weight 166 Weight Status Overweight GI Symptoms Skin Integrity/Comment: Rajesh 17. Skin dryness. Current %PO Good (75-100%) Estimated Nutritional Goals Calories/Kcals/Kg IBW 166lb/75.5kg Kcals Calculated 1888-2265kcal (25-30kcal/kg) Protein Calculated 76g (1g/kg) Fluid: ml 1888-2265ml (1ml/kcal) Nutritional Problem 1. Problem Problem No nutritional problem at this time. Intervention/Recommendation Comments 1. Continue with current diet order. Avg PO intake is adequate. Expected Outcomes/Goals Expected Outcomes/Goals 1. PO intake continue to meet at least 75% of estimated nutritional needs.
--- NOTE | 2017-04-20 22:35 | Progress Notes ---
DATE: 04/20/2017 SUBJECTIVE: Chart reviewed and the patient interviewed. Also discussed the patient's condition with the staff and reviewed records and labs. The patient is still agitated and confused. The patient also is restless and he still needs lots of redirections. Also, is argumentative. Still wandering around the unit with his wheelchair in confused and agitated state. On the other hand, slightly easier to redirect him. ASSESSMENT: The patient is still confused and considered to be gravely disabled. TREATMENT PLAN: Continue to monitor his behavior and his condition closely. Also, continue to work on his confusion and his discharge plans and placement issue. JOB# [id number]
[2017-04-21] MEDS: Aspirin 81mg Chewable Tab PO SCH (09:50)
[2017-04-21] MEDS: Pantoprazole 40 mg EC Tab PO SCH (09:51)
--- NOTE | 2017-04-21 11:56 | Internal Medicine Prog Note ---
Internal Medicine Subjective - Subjective Service Date: 04/21/17 Patient seen and examined:: without staff Patient is:: awake, non-verbal, in bed, confused Per staff patient has:: no adverse event Internal Medicine Objective - Results Result Diagrams: 03/30/17 07:15 03/30/17 07:15 Recent Labs: Laboratory Last Values WBC 12.6 Th/cmm (4.8-10.8) H 03/30/17 07:15 RBC 5.32 Mil/cmm (3.80-5.80) 03/30/17 07:15 Hgb 15.5 gm/dL (12-16) 03/30/17 07:15 Hct 46.2 % (41.0-60) 03/30/17 07:15 MCV 86.8 fl (80-99) 03/30/17 07:15 MCH 29.1 pg (27.0-31.0) 03/30/17 07:15 MCHC Differential 33.5 pg (28.0-36.0) 03/30/17 07:15 RDW 14.0 % (11.5-20.0) 03/30/17 07:15 Plt Count 215 Th/cmm (150-400) 03/30/17 07:15 MPV 8.0 fl 03/30/17 07:15 Neutrophils % 38.8 % (40.0-80.0) L 03/30/17 07:15 Band Neutrophils % 2 % (0-10) 03/26/17 07:05 Lymphocytes % 45.2 % (20.0-50.0) 03/30/17 07:15 Monocytes % 6.6 % (2.0-10.0) 03/30/17 07:15 Eosinophils % 9.1 % (0.0-5.0) H 03/30/17 07:15 Basophils % 0.3 % (0.0-2.0) 03/30/17 07:15 Neutrophils (Manual) 67 % (40-80) 03/26/17 07:05 Lymphocytes 23 % (20-50) 03/26/17 07:05 Monocytes 5 % (2-10) 03/26/17 07:05 Eosinophils 3 % (0-5) 03/26/17 07:05 Sodium 134 mEq/L (136-145) L 03/30/17 07:15 Potassium 4.0 mEq/L (3.5-5.1) 03/30/17 07:15 Chloride 101 mEq/L (98-107) 03/30/17 07:15 Carbon Dioxide 29.1 mEq/L (21.0-31.0) 03/30/17 07:15 Anion Gap 7.9 (7.0-16.0) 03/30/17 07:15 BUN 17 mg/dL (7-25) 03/30/17 07:15 Creatinine 0.6 mg/dL (0.7-1.3) L 03/30/17 07:15 Est GFR ( Amer) TNP 03/30/17 07:15 Est GFR (Non-Af Amer) TNP 03/30/17 07:15 BUN/Creatinine Ratio 28.3 03/30/17 07:15 Glucose 85 mg/dL (70-105) 03/30/17 07:15 POC Glucose 92 MG/DL (70 - 105) 04/08/17 06:16 Calcium 9.2 mg/dL (8.6-10.3) 03/30/17 07:15 Total Bilirubin 0.5 mg/dL (0.3-1.0) 03/26/17 07:05 AST 14 U/L (13-39) 03/26/17 07:05 ALT 11 U/L (7-52) 03/26/17 07:05 Alkaline Phosphatase 94 U/L (34-104) 03/26/17 07:05 Total Protein 7.0 gm/dL (6.0-8.3) 03/26/17 07:05 Albumin 4.2 gm/dL (4.2-5.5) 03/26/17 07:05 Globulin 2.8 gm/dL 03/26/17 07:05 Albumin/Globulin Ratio 1.5 (1.0-1.8) 03/26/17 07:05 - Physical Exam Vitals and I&O: Vital Signs Temp 97.8 F 04/21/17 06:25 Pulse 79 04/21/17 08:05 Resp 18 04/21/17 08:05 BP 108/62 04/21/17 06:25 Pulse Ox 95 04/21/17 08:05 Intake & Output 04/20/17 04/21/17 04/21/17 18:59 06:59 18:59 Intake Total 950 360 Balance 950 360 Intake: Oral 950 360 Other: # Voids 4 1 # Bowel Movements 1 0 Active Medications: Current Medications Acetaminophen (Tylenol) 650 mg PO Q6H PRN PRN Reason: Mild Pain/Headache/T above 101 Stop: 05/24/17 20:40 Al Hydrox/Mg Hydrox/Simethicone (Maalox) 30 ml PO Q6H PRN PRN Reason: Dyspepsia Stop: 05/24/17 20:40 Albuterol/Ipratropium (Duoneb Neb) 3 ml HHN Q4H PRN PRN Reason: Wheezing Stop: 05/24/17 21:28 Alprazolam (Xanax) 0.5 mg PO Q8HR BROOK PRN Reason: Protocol Stop: 05/25/17 04:59 Last Admin: 04/21/17 05:17 Dose: 0.5 mg Aspirin (Aspirin Chewable) 81 mg PO DAILY BROOK Stop: 05/25/17 08:59 Last Admin: 04/21/17 09:50 Dose: 81 mg Benztropine Mesylate (Cogentin) 0.5 mg PO DAILY BROOK Stop: 05/25/17 08:59 Last Admin: 04/21/17 11:03 Dose: 0.5 mg Chlorpromazine (Thorazine) 50 mg PO BID BROOK PRN Reason: Protocol Stop: 06/12/17 16:59 Last Admin: 04/21/17 09:50 Dose: 50 mg Citalopram Hydrobromide (Celexa) 20 mg PO DAILY BROOK PRN Reason: Protocol Stop: 05/25/17 08:59 Last Admin: 04/21/17 09:50 Dose: 20 mg Docusate Sodium (Colace) 200 mg PO DAILY BROOK Stop: 05/25/17 08:59 Last Admin: 04/21/17 09:50 Dose: 200 mg Lorazepam (Ativan) 1 mg PO Q6HR PRN; Protocol PRN Reason: Agitation Stop: 06/02/17 07:55 Last Admin: 04/19/17 09:33 Dose: 1 mg Magnesium Hydroxide (Milk Of Magnesia) 30 ml PO HS PRN PRN Reason: Constipation Stop: 05/24/17 20:40 Metoclopramide HCl (Reglan) 5 mg PO Q12HR BROOK Stop: 05/24/17 20:59 Last Admin: 04/21/17 09:51 Dose: 5 mg Pantoprazole Sodium (Protonix) 40 mg PO QAM BROOK Stop: 05/25/17 08:59 Last Admin: 04/21/17 09:51 Dose: 40 mg Quetiapine Fumarate (Seroquel) 50 mg PO DAILY BROOK PRN Reason: Protocol Stop: 05/31/17 08:59 Last Admin: 04/21/17 09:49 Dose: 50 mg Quetiapine Fumarate (Seroquel) 400 mg PO HS BROOK Stop: 06/11/17 20:59 Last Admin: 04/20/17 20:53 Dose: 400 mg Zolpidem Tartrate (Ambien) 5 mg PO HS PRN PRN Reason: Insomnia Stop: 06/02/17 07:57 Last Admin: 04/14/17 20:17 Dose: 5 mg General: demented, obese HEENT: NC/AT, PERRLA, EOMI, anicteric sclerae, throat clear Neck: Supple, No JVD, No thyromegaly, +2 carotid pulse wo bruit, No LAD Lungs: CTAB Cardiovascular: RRR, Normal S1, Normal S2, without murmur Abdomen: soft, non-tender, non-distended Extremities: clear Neurological: unable to follow command Internal Medicine Assmt/Plan - Assessment Assessment: 1.HTN. 2.GERD. 3.DEMENTIA. - Plan Plan: CONTINUE ON CURRENT MEDICATION AND DIET. Nutritional Asmnt/Malnutr-PDOC - Dietary Evaluation Malnutrition Findings (Please click <Entered> for more info): Nutritional Asmnt/Malnutrition Start: 03/30/17 16: 13 Text: Status: Complete Freq: Document 03/30/17 16:14 GSUN (Rec: 03/30/17 16:21 GSUN [email or web address]) Nutritional Asmnt/Malnutrition Patient General Information Nutritional Screening Moderate Risk Screening Diagnosis Unspecified psychosis, dementia moderate with psychotic features Pertinent Medical Hx/Surgical Hx Dementia, depression, GERD, DJD, obesity Subjective Information 77 year old male. Pt seen in wheelchair in rec room, asleep and unable to be woken up. Spoke to SEISMOGRAPH OPERATOR in rec room, SEISMOGRAPH OPERATOR reported pt has good appetite, no difficulties eating, denied nutritional concerns at this time. Pt appeared overweight, no muscle fat wasting noted. Avg PO intake 100% of meals since adm, meeting nutritional needs. [facility] Diet [facility]/ [facility] Pertinent Medications Colace, Haldol, MOM, Reglan, Protonix, Seroquel Pertinent Labs Reviewed. Nutritional Hx/Data Height 1.78 m Height (Calculated Centimeters) 177.8 Current Weight (lbs) 92.986 kg Weight (Calculated Kilograms) 93.0 Weight (Calculated Grams) 49252.4 [place] Body Weight 166 Weight Status Overweight GI Symptoms Skin Integrity/Comment: Rajesh 17. Skin dryness. Current %PO Good (75-100%) Estimated Nutritional Goals Calories/Kcals/Kg IBW 166lb/75.5kg Kcals Calculated 1888-2265kcal (25-30kcal/kg) Protein Calculated 76g (1g/kg) Fluid: ml 1888-2265ml (1ml/kcal) Nutritional Problem 1. Problem Problem No nutritional problem at this time. Intervention/Recommendation Comments 1. Continue with current diet order. Avg PO intake is adequate. Expected Outcomes/Goals Expected Outcomes/Goals 1. PO intake continue to meet at least 75% of estimated nutritional needs.
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
== END 2017-04-21 15:15 | DRG 885 ==
LOC: GERO 20:13
PROVIDERS: ADMIT Psychiatry & Neurology Psychiatry; ATTEND Psychiatry & Neurology Psychiatry
DX: F29 Unspecified psychosis not due to a substance or known physiological condition (principal); E87.1 Hypo-osmolality and hyponatremia; F03.91 Unspecified dementia, unspecified severity, with behavioral disturbance; I10 Essential (primary) hypertension; K21.9 Gastro-esophageal reflux disease without esophagitis; M19.90 Unspecified osteoarthritis, unspecified site; F32.9 Major depressive disorder, single episode, unspecified; E66.9 Obesity, unspecified; D72.829 Elevated white blood cell count, unspecified; F41.9 Anxiety disorder, unspecified; Z68.29 Body mass index [BMI] 29.0-29.9, adult
CPT/HCPCS: 36415-UA; 80048-TC; 80053-TC; 82948-90; 85007-TC; 85025-TC; 85027-TC; 90899; 94760; G0410; J1200; J1630; J2060; J3230; Q0161; Z7610